=== PATIENT | female | born 1945 | race Two or more races ===

== ENCOUNTER 2018-12-17 04:04 | Inpatient (IN) | payer MEDICARE, BC ==
[2018-12-17 05:38] LABS: BASO # 0.02 K/mm3 (0.0-2.0); BASO % 0.2 % (0.0-3.0); EOS % 0.1 % (1.5-5.0); HEMOGLOBIN 12.7 g/dL (12.0-16.0); LYMPH # 0.3 (1.2-3.4); LYMPH % 3.2 % (22.0-35.0); MEAN CELL VOLUME 86.4 fl (80.0-105.0); MEAN CORPUSCULAR HEMOGLOBIN 28.2 pg (25.0-35.0); MEAN CORPUSCULAR HGB CONC 32.6 g/dl (31.0-37.0); MEAN PLATELET VOLUME 9.6 fl (7.0-11.0); MONO # 0.4 (0.1-0.6); MONO % 4.9 % (1.0-6.0); PLATELET COUNT 134 10^3/uL (120.0-450.0); RED CELL DISTRIBUTION WIDTH 13.8 % (11.5-14.5); URINE BILIRUBIN NEGATIVE (NEGATIVE); URINE BLOOD LARGE (NEGATIVE); URINE GLUCOSE (UA) >=1000 mg/dL (NEGATIVE); URINE LEUKOCYTE ESTERASE TRACE Leu/uL (NEGATIVE); URINE PROTEIN >=300 mg/dL (<30 mg/dL); URINE UROBILINOGEN 0.2 E.U./dL (<1 E.U./dL); WHITE BLOOD COUNT 8.2 10^3/uL (4.5-11.0)
[2018-12-17 05:42] LABS: VENOUS BLOOD GAS BASE EXCESS -2.2 mmol/L (0.0-2.0); VENOUS BLOOD GAS PO2 34 mm/Hg (30-55); VENOUS BLOOD PH 7.32 (7.32-7.43)
--- NOTE | 2018-12-17 05:42 | ED PDOC ---
Arrival/HPI - General Chief Complaint: Fever Time Seen by Provider: 12/17/18 04:08 Historian: Patient - History of Present Illness Narrative History of Present Illness (Text): 12/17/18 05:42 72 year old female, with past medical history of hypertension, CVA, gallbladder removal, and diabetes 2 presents to emergency department for evaluation of fever and left lower quadrant pain. Patient denies any chest pain, cough, nausea, vo miting, diarrhea, or any other somatic complaints. PMD: Symptom Onset: Gradual Symptom Course: Unchanged Activities at Onset: Light Context: Home Past Medical History - Provider Review Nursing Documentation Reviewed: Yes - Cardiac Hx Cardiac Disorders: Yes Hx Hypertension: Yes - Neurological Hx Neurological Disorder: Yes HX Cerebrovascular Accident: Yes (21 years ago) - Endocrine/Metabolic Hx Endocrine Disorders: Yes Hx Diabetes Mellitus Type 2: Yes - Psychiatric Hx Substance Use: No - Surgical History Hx Orthopedic Surgery: Yes (R leg with hemalatha, removed due to infection) Family/Social History - Physician Review Nursing Documentation Reviewed: Yes Family/Social History: Unknown Family HX Smoking Status: Former Smoker Hx Alcohol Use: No Hx Substance Use: No Allergies/Home Meds Allergies/Adverse Reactions: Allergies brompheniramine [From Dimetane-DX] Allergy (Verified 12/20/18 20:07) ANAPHYLAXIS diphenhydramine [From Benadryl] Allergy (Verified 12/20/18 20:07) ANAPHYLAXIS Penicillins Allergy (Verified 12/17/18 04:13) ANAPHYLAXIS Home Medications: Home Meds Medication Instructions Recorded Confirmed Aspirin/Dipyridamole 1 tab PO DAILY 12/17/18 12/17/18 [Aspirin-Dipyridam ER 25-200 mg] Escitalopram [Lexapro] 10 mg PO DAILY 12/17/18 12/17/18 GlipiZIDE [Glucotrol] 10 mg PO DAILY 12/17/18 12/17/18 MetFORMIN [glucoPHAGE] 1,000 mg PO BID 12/17/18 12/17/18 Metoprolol Tartrate [Lopressor] 100 mg PO BID 12/17/18 12/17/18 NIFEdipine ER [Procardia XL] 30 mg PO DAILY 12/17/18 12/17/18 SITagliptin [Januvia] 100 mg PO DAILY 12/17/18 12/17/18 Valsartan [Diovan] 320 mg PO DAILY 12/17/18 12/17/18 traMADol [Ultram] 50 mg PO TID PRN 12/17/18 12/17/18 Review of Systems - Physician Review All systems were reviewed & negative as marked: Yes - Review of Systems Constitutional: Fevers Respiratory: absent: SOB, Cough Cardiovascular: absent: Chest Pain Gastrointestinal: Abdominal Pain (LLQ pain). absent: Diarrhea, Nausea, Vomiting Musculoskeletal: absent: Back Pain, Neck Pain Skin: absent: Rash Neurological: absent: Headache, Dizziness Physical Exam - Physical Exam Narrative Physical Exam (Text): 12/17/18 05:47 Gen: VS reviewed, alert, well developed, well nourished, nontoxic, mild distress Eye: EOMI, PERRL Neck: no JVD, supple, no adenopathy CV: regular rate, regular rhythm, no rubs,no murmur, S1, S2 Pulm: no distress, clear to auscultation, no wheeze, no rhonchi, breath sounds equal, no rales Abd: LLQ tenderness, with guarding, no rebound, no rigidity Back: no CVA tenderness Ext: no edema Skin: good color, no rash, no cyanosis Psych: responds appropriately to questions, normal affect Neuro: oriented x3, CN2-12 intact grossly, motor intact, sensation intact Vital Signs Reviewed: Yes Vital Signs Temp Pulse Resp BP Pulse Ox 12/17/18 05:39 104 H 18 114/54 L 99 12/17/18 04:17 99.7 F H 113 H 18 105/40 L 92 L Temperature: Afebrile Blood Pressure: Normal Pulse: Regular Respiratory Rate: Normal Appearance: Positive for: Well-Appearing, Non-Toxic, Comfortable Pain Distress: None Mental Status: Positive for: Alert and Oriented X 3 Finger Stick Blood Glucose: 486 Medical Decision Making ED Course and Treatment: 12/17/18 05:48 Impression: 72 year old female presents to emergency department for evaluation of fever and LLQ pain. Plan: -- Reassess and disposition Prior Visits: Notes and results from previous visits were reviewed. Progress Notes: 12/17/18 08:15 patient was seen for fever and llq pain. patient found to have a lactic acidosis and bandemia, sepsis. Patient empirically tx with iv abx. Ct ordered to eval for diverticulitis vs obstructive uropathy vs other. case endorsed to dr. viveros, pending CT result and final disposition/admission. - RAD Interpretation Radiology Orders: 12/17/18 05:07 CHEST PORTABLE [RAD] Stat 12/17/18 05:08 ABDOMEN & PELVIS [ABD & PELVIS IV CONTRAST ONLY] [CT] Stat - EKG Interpretation EKG Interpretation (Text): 12/17/18 06:32 0430: sinus tach at 113 bpm, nml qrs, nml axis, no acute sttw abn Interpreted by ED Physician: Yes - Scribe Statement The provider has reviewed the documentation as recorded by the Scribe Musa Loredo All medical record entries made by the Scribe were at my direction and personally dictated by me. I have reviewed the chart and agree that the record accurately reflects my personal performance of the history, physical exam, medical decision making, and the department course for this patient. I have also personally directed, reviewed, and agree with the discharge instructions and disposition. Disposition/Present on Arrival - Present on Arrival Any Indicators Present on Arrival: No History of DVT/PE: No History of Uncontrolled Diabetes: Yes Urinary Catheter: No History of Decub. Ulcer: No History Surgical Site Infection Following: Orthopedic Procedures - Disposition Have Diagnosis and Disposition been Completed?: Yes Diagnosis: Sepsis, UTI (urinary tract infection) Disposition: HOSPITALIZED Disposition Time: 18:04 Patient Plan: Admission Patient Problems: Current Active Problems Problem Status Onset Sepsis Acute UTI (urinary tract infection) Acute Condition: FAIR
[2018-12-17 06:02] LABS: ALB/GLOB RATIO 1.3 (1.1-1.8); CALCIUM 10.8 mg/dL (8.4-10.5)
[2018-12-17 06:11] LABS: URINE APPEARANCE SL CLOUDY (CLEAR); URINE COLOR YELLOW (YELLOW)
[2018-12-17] MEDS ORDERED: Aztreonam 1 Gm in NS 100mL 100 ML IVPB STA (06:13)
[2018-12-17] MEDS ORDERED: Insulin Regular 1 UNITS/0.01 ML ML IVP STA (06:13)
[2018-12-17] MEDS ORDERED: Vancomycin 500 mg Inj IVPB STA (06:14)
[2018-12-17 06:34] LABS: URINE WBC TNTC /hpf (0-6)
[2018-12-17 06:35] LABS: URINE AMORPHOUS SEDIMENT MODERATE /hpf; URINE BACTERIA SMALL /hpf
[2018-12-17] MEDS ORDERED: Vancomycin 1.25 GM in Sodium Chloride 0.9% 500 ML IVPB ONE (06:45)
[2018-12-17 06:59] LABS: BAND 9 % (0-2); LYMPHOCYTE 5 % (22.0-35.0); NEUTROPHIL 83 % (50.0-70.0)
[2018-12-17 07:00] LABS: METAMYELOCYTE 3 %; MONOCYTE 0 % (1.0-6.0); PLATELET ESTIMATE NORMAL (NORMAL)
[2018-12-17 08:36] LABS: VENOUS BLOOD GAS BASE EXCESS -4.5 mmol/L (0.0-2.0); VENOUS BLOOD GAS PO2 79 mm/Hg (30-55); VENOUS BLOOD PH 7.36 (7.32-7.43)
--- NOTE | 2018-12-17 08:58 | CT ---
Date of service: 12/17/2018 PROCEDURE: CT Abdomen and Pelvis without intravenous contrast HISTORY: COMPARISON: None. TECHNIQUE: CT scan of the abdomen and pelvis was performed without administration of intravenous contrast. Oral contrast was not administered. Coronal and sagittal reformatted images were obtained. Radiation dose: Total exam DLP = 1091.02 mGy-cm. This CT exam was performed using one or more of the following dose reduction techniques: Automated exposure control, adjustment of the mA and/or kV according to patient size, and/or use of iterative reconstruction technique. FINDINGS: LOWER THORAX: The visualized right lung is clear. There is subsegmental atelectasis in the left lung base. LIVER: Normal in size. No gross lesion or ductal dilatation. GALLBLADDER AND BILE DUCTS: Well distended. No calcified gallstones. No common bile duct dilatation. PANCREAS: Mild diffuse atrophy of the pancreas. No gross lesion or ductal dilatation. SPLEEN: Borderline splenomegaly. ADRENALS: The right adrenal gland is normal in size. There is mild thickening of the left adrenal gland without discrete nodule. KIDNEYS AND URETERS: There is mild atrophy of the right kidney with cortical scarring in the upper pole. The left kidney is normal in size.. No hydronephrosis or nephrolithiasis. There is nonspecific perinephric fat stranding. VASCULATURE: Normal in caliber. No aortic aneurysm. There are aortic atherosclerotic calcifications present. BOWEL: Evaluation of the bowel is limited in the absence of oral contrast. The small bowel loops are normal in caliber. There is moderate amount of stool in the colon. There is left colonic diverticulosis without CT evidence for acute diverticulitis APPENDIX: Normal appendix. PERITONEUM: No free fluid. No free air. LYMPH NODES: No enlarged lymph nodes. BLADDER: Partially decompressed. REPRODUCTIVE: The uterus is is normal in size. BONES: No acute fracture. There is diffuse bone demineralization and multilevel degenerative changes in the spine. OTHER FINDINGS: None. IMPRESSION: No acute abdominal or pelvic abnormality. Left colonic diverticulosis without CT evidence for acute diverticulitis.
[2018-12-17] MEDS ORDERED: SODIUM CHLORIDE 0.9% IV STA (09:10)
--- NOTE | 2018-12-17 10:40 | ED PDOC ---
Physical Exam - Physical Exam Narrative Physical Exam (Text): Signed out to me at change of shift pending CT. IMPRESSION: No acute abdominal or pelvic abnormality. Left colonic diverticulosis without CT evidence for acute diverticulitis. Dr. Ballesteros accepts patient to hospitalist service. Vital Signs Temp Pulse Resp BP Pulse Ox 12/17/18 08:33 98.4 F 96 H 18 105/54 L 96 12/17/18 07:49 19 108/58 L 98 12/17/18 07:13 99 H 18 97/45 L 98 12/17/18 06:44 106 H 18 111/48 L 97 12/17/18 05:39 104 H 18 114/54 L 99 12/17/18 04:17 99.7 F H 113 H 18 105/40 L 92 L Finger Stick Blood Glucose: 486 Medical Decision Making - Lab Interpretations Lab Results: pO2 79 mm/Hg (30-55) H 12/17/18 07:50 VBG pH 7.36 (7.32-7.43) 12/17/18 07:50 VBG pCO2 36.0 (40-60) L 12/17/18 07:50 VBG HCO3 20.3 mmol/l (21-28) L 12/17/18 07:50 VBG Total CO2 21.4 mmol.L (22-28) L 12/17/18 07:50 VBG O2 Sat (Calc) 97.1 % (40-65) H 12/17/18 07:50 VBG Base Excess -4.5 mmol/L (0.0-2.0) L 12/17/18 07:50 VBG Potassium 3.6 mmol/L (3.6-5.2) 12/17/18 07:50 Sodium 136.0 mmol/L (132-148) 12/17/18 07:50 Chloride 98.0 mmol/L (98-107) 12/17/18 07:50 Glucose 393 mg/dl (65-105) H 12/17/18 07:50 Lactate 4.9 mmol/L (0.7-2.1) H* 12/17/18 07:50 FiO2 21.0 % 12/17/18 07:50 Crit Value Called To Leora malone 12/17/18 07:50 Crit Value Called By Sonali 12/17/18 07:50 Blood Gas Notified Time 836 12/17/18 07:50 Total Bilirubin 0.6 mg/dL (0.2-1.3) 12/17/18 04:40 AST 26 U/L (14-36) 12/17/18 04:40 ALT 8 U/L (7-56) 12/17/18 04:40 Alkaline Phosphatase 93 U/L (38-126) 12/17/18 04:40 Total Protein 7.1 g/dL (5.8-8.3) 12/17/18 04:40 Albumin 4.0 g/dL (3.0-4.8) 12/17/18 04:40 Globulin 3.2 gm/dL 12/17/18 04:40 Albumin/Globulin Ratio 1.3 (1.1-1.8) 12/17/18 04:40 Urine Color Yellow (YELLOW) 12/17/18 04:40 Urine Appearance Sl cloudy (CLEAR) 12/17/18 04:40 Urine pH 6.0 (4.7-8.0) 12/17/18 04:40 Ur Specific [place] 1.025 (1.005-1.035) 12/17/18 04:40 Urine Protein >=300 mg/dL (<30 mg/dL) H 12/17/18 04:40 Urine Glucose (UA) >=1000 mg/dL (NEGATIVE) 12/17/18 04:40 Urine Ketones 15 mg/dL (NEGATIVE) H 12/17/18 04:40 Urine Blood Large (NEGATIVE) H 12/17/18 04:40 Urine Nitrate Negative (NEGATIVE) 12/17/18 04:40 Urine Bilirubin Negative (NEGATIVE) 12/17/18 04:40 Urine Urobilinogen 0.2 E.U./dL (<1 E.U./dL) 12/17/18 04:40 Ur Leukocyte Esterase Trace Jonatan/uL (NEGATIVE) H 12/17/18 04:40 Urine RBC 10 - 15 /hpf (0-2) H 12/17/18 04:40 Urine WBC Tntc /hpf (0-6) H 12/17/18 04:40 Ur Epithelial Cells 3 - 4 /hpf (0-5) 12/17/18 04:40 Amorphous Sediment Moderate /hpf (NONE) 12/17/18 04:40 Urine Bacteria Small /hpf (NONE) 12/17/18 04:40 - RAD Interpretation Radiology Orders: 12/17/18 05:07 CHEST PORTABLE [RAD] Stat 12/17/18 07:37 ABDOMEN & PELVIS [ABD & PELVIS W/O PO OR IV CONT] [CT] Stat - Medication Orders Current Medication Orders: Discontinued Medications Aztreonam (Azactam 1 Gm) 100 mls @ 100 mls/hr IVPB STAT STA; Protocol Stop: 12/17/18 07:12 Last Admin: 12/17/18 07:17 Dose: 100 mls/hr eMAR Start Stop Document 12/17/18 07:17 CNR (Rec: 12/17/18 07:17 CNR [id number]) Intravenous Solution Start Date 12/17/18 Start Time 07:17 Vancomycin HCl 1.25 gm/ Sodium (Chloride) 500 mls @ 167 mls/hr IVPB ONCE ONE Stop: 12/17/18 09:44 Last Admin: 12/17/18 08:26 Dose: 167 mls/hr eMAR Start Stop Document 12/17/18 08:26 GMI (Rec: 12/17/18 08:[address] [email or web address]) Intravenous Solution Start Date 12/17/18 Start Time 08:26 Sodium Chloride (Sodium Chloride 0.9%) 2,314 mls @ 4,628 mls/hr IV .Q30M STA Stop: 12/17/18 09:39 Last Admin: 12/17/18 09:30 Dose: 4,628 mls/hr eMAR Start Stop Document 12/17/18 09:30 GMI (Rec: 12/17/18 09:[address] [email or web address]) Intravenous Solution Start Date 12/17/18 Start Time 09:30 End Date 12/17/18 Insulin Human Regular (Humulin R) 10 units IVP STAT STA Stop: 12/17/18 06:14 Last Admin: 12/17/18 06:25 Dose: 10 u IVP Administration Document 12/17/18 06:25 CNR (Rec: 12/17/18 06:26 CNR [id number]) Charges for Administration # of IVP Administrations 1 Disposition/Present on Arrival - Present on Arrival Any Indicators Present on Arrival: Yes History of DVT/PE: No History of Uncontrolled Diabetes: Yes Urinary Catheter: No History of Decub. Ulcer: No History Surgical Site Infection Following: Orthopedic Procedures - Disposition Have Diagnosis and Disposition been Completed?: Yes Diagnosis: Sepsis, UTI (urinary tract infection) Disposition: HOSPITALIZED Disposition Time: 08:55 Patient Plan: Admission, Telemetry Condition: FAIR Forms: [employer] (Armenian)
[2018-12-17] MEDS: Sodium Chloride 0.9% 1,000 ML IV SCH ×2 (12:18→22:10)
--- NOTE | 2018-12-17 12:23 | CP.PCM.HP ---
<Yash Balbuena - Last Filed: 12/17/18 12:28> History of Present Illness - History of Present Illness History of Present Illness: Hospitalist H&P for Dr. Ballesteros CC: Fever Patient is a 72 yo F with PMH of DM2, HTN, CVA (21 yrs ago), depression, and chronic back pain [place] [facility] [place], chills, vomiting, and possible UTI. Patient states that she began having fever of 101.4 F, chills, and back pain. Patient denies any dysuria or hematuria, but states that this felt similar to a UTI she had in the past. Patient then called her PMD, Dr. Eden, who prescribed Ciprofloxacin. Patient has only taken one dose thus far. Patient then vomited later in the evening. The daughter was afraid that her mom may have aspirated and brought her to the ED. Patient has been afebrile in the ED, but had mild hypotension and an elevated lactate. Code sepsis was called. Patient was placed on IVF and antibiotics at that time. Currently, patient complains of back pain and cough, both of which are chronic, but denies CP, SOB, n/v/d, fever, chills, dysuria, hematuria, melena, hematochezia, dizziness, headache, or fatigue. PMD: [facility] PMH: DM2, HTN, CVA (21 yrs ago), depression, and chronic back pain Surg: D&C, right leg fracture repair, cholecystectomy, x2 All: Penicillin FHx: Non-contributory SH: Former smoker 1 ppd for 20 yrs (quit 21 yrs ago); denies EtOH and illicit drug use Present on Admission - Present on Admission Any Indicators Present on Admission: No Review of Systems - Review of Systems All systems: reviewed and no additional remarkable complaints except (12 point ROS reviewed and is negative other than what is stated in HPI.) Past Patient History - Past Social History Smoking Status: Former Smoker - CARDIAC Hx Cardiac Disorders: Yes Hx Hypertension: Yes - NEUROLOGICAL Hx Neurological Disorder: Yes HX Cerebrovascular Accident: Yes (21 years ago) - ENDOCRINE/METABOLIC Hx Endocrine Disorders: Yes Hx Diabetes Mellitus Type 2: Yes - PSYCHIATRIC Hx Substance Use: No - SURGICAL HISTORY Hx Orthopedic Surgery: Yes (R leg with hemalatha, removed due to infection) Meds Allergies/Adverse Reactions: Allergies Allergy/AdvReac Type Severity Reaction Status Date / Time Penicillins Allergy ANAPHYLAXIS Verified 12/17/18 04:13 Physical Exam - Constitutional Appears: No Acute Distress - Head Exam Head Exam: NORMAL INSPECTION - Eye Exam Eye Exam: EOMI, Normal appearance, PERRL Pupil Exam: NORMAL ACCOMODATION - ENT Exam ENT Exam: Mucous Membranes Dry - Neck Exam Neck exam: Positive for: Normal Inspection - Respiratory Exam Respiratory Exam: Clear to Auscultation Bilateral. absent: Rales, Rhonchi, Wheezes - Cardiovascular Exam Cardiovascular Exam: Tachycardia, +S1, +S2. absent: Diastolic murmur, Gallop, Irregular Rhythm, Rubs, Systolic Murmur - GI/Abdominal Exam GI & Abdominal Exam: Soft, Tenderness (suprapubic). absent: Distended, Guarding, Rebound - Extremities Exam Extremities exam: Positive for: normal inspection - Back Exam Back exam: CVA tenderness (L) - Neurological Exam Neurological exam: Alert, CN II-XII Intact, Oriented x3 - Psychiatric Exam Psychiatric exam: Normal Affect, Normal Mood - Skin Skin Exam: Dry, Intact, Normal Color, Warm Results - Vital Signs Recent Vital Signs: Last Vital Signs Temp 98 F 12/17/18 12:10 Pulse 100 H 12/17/18 12:10 Resp 19 12/17/18 12:10 BP 120/72 12/17/18 12:10 Pulse Ox 95 12/17/18 10:47 - Labs Result Diagrams: 12/17/18 04:40 12/17/18 04:40 Labs: Laboratory Results - last 24 hr 12/17/18 12/17/18 12/17/18 04:40 04:40 04:40 WBC 8.2 RBC 4.50 Hgb 12.7 Hct 38.9 MCV 86.4 MCH 28.2 MCHC 32.6 RDW 13.8 Plt Count 134 MPV 9.6 Neut % (Auto) 91.6 H Lymph % (Auto) 3.2 L [place] % (Auto) 4.9 Eos % (Auto) 0.1 L Baso % (Auto) 0.2 Lymph # (Auto) 0.3 L [place] # (Auto) 0.4 Eos # (Auto) 0.0 Baso # (Auto) 0.02 Absolute Neuts (auto) 7.48 H Neutrophils % (Manual) 83 H Band Neutrophils % 9 H Lymphocytes % (Manual) 5 L Monocytes % (Manual) 0 L Metamyelocytes % 3 Platelet Evaluation Normal pO2 34 VBG pH 7.32 VBG pCO2 47.0 VBG HCO3 24.2 VBG Total CO2 25.6 VBG O2 Sat (Calc) 66.9 H VBG Base Excess -2.2 L VBG Potassium 4.7 Sodium 132.0 131 L Chloride 93.0 L 94 L Glucose 557 H* Lactate 3.1 H FiO2 21.0 Crit Value Called To Rn cydney Crit Value Called By Blood Gas Notified Time 540 Potassium 4.5 Carbon Dioxide 23 Anion Gap 18 BUN 31 H Creatinine 1.6 H Est GFR ( Amer) 38 Est GFR (Non-Af Amer) 32 POC Glucose (mg/dL) Random Glucose 499 H* Calcium 10.8 H Total Bilirubin 0.6 AST 26 ALT 8 Alkaline Phosphatase 93 Total Protein 7.1 Albumin 4.0 Globulin 3.2 Albumin/Globulin Ratio 1.3 Venous Blood Potassium 4.7 Urine Color Urine Appearance Urine pH Ur Specific [place] Urine Protein Urine Glucose (UA) Urine Ketones Urine Blood Urine Nitrate Urine Bilirubin Urine Urobilinogen Ur Leukocyte Esterase Urine RBC Urine WBC Ur Epithelial Cells Amorphous Sediment Urine Bacteria 12/17/18 12/17/18 12/17/18 04:40 04:40 07:50 WBC RBC Hgb Hct MCV MCH MCHC RDW Plt Count MPV Neut % (Auto) Lymph % (Auto) [place] % (Auto) Eos % (Auto) Baso % (Auto) Lymph # (Auto) [place] # (Auto) Eos # (Auto) Baso # (Auto) Absolute Neuts (auto) Neutrophils % (Manual) Band Neutrophils % Lymphocytes % (Manual) Monocytes % (Manual) Metamyelocytes % Platelet Evaluation pO2 79 H VBG pH 7.36 VBG pCO2 36.0 L VBG HCO3 20.3 L VBG Total CO2 21.4 L VBG O2 Sat (Calc) 97.1 H VBG Base Excess -4.5 L VBG Potassium 3.6 Sodium 136.0 Chloride 98.0 Glucose 393 H Lactate 4.9 H* FiO2 21.0 Crit Value Called To Leora malone Crit Value Called By Sonali Blood Gas Notified Time 836 Potassium Carbon Dioxide Anion Gap BUN Creatinine Est GFR ( Amer) Est GFR (Non-Af Amer) POC Glucose (mg/dL) 486 H* Random Glucose Calcium Total Bilirubin AST ALT Alkaline Phosphatase Total Protein Albumin Globulin Albumin/Globulin Ratio Venous Blood Potassium 3.6 Urine Color Yellow Urine Appearance Sl cloudy Urine pH 6.0 Ur Specific [place] 1.025 Urine Protein >=300 H Urine Glucose (UA) >=1000 Urine Ketones 15 H Urine Blood Large H Urine Nitrate Negative Urine Bilirubin Negative Urine Urobilinogen 0.2 Ur Leukocyte Esterase Trace H Urine RBC 10 - 15 H Urine WBC Tntc H Ur Epithelial Cells 3 - 4 Amorphous Sediment Moderate Urine Bacteria Small 12/17/18 08:41 WBC RBC Hgb Hct MCV MCH MCHC RDW Plt Count MPV Neut % (Auto) Lymph % (Auto) [place] % (Auto) Eos % (Auto) Baso % (Auto) Lymph # (Auto) [place] # (Auto) Eos # (Auto) Baso # (Auto) Absolute Neuts (auto) Neutrophils % (Manual) Band Neutrophils % Lymphocytes % (Manual) Monocytes % (Manual) Metamyelocytes % Platelet Evaluation pO2 VBG pH VBG pCO2 VBG HCO3 VBG Total CO2 VBG O2 Sat (Calc) VBG Base Excess VBG Potassium Sodium Chloride Glucose Lactate FiO2 Crit Value Called To Crit Value Called By Blood Gas Notified Time Potassium Carbon Dioxide Anion Gap BUN Creatinine Est GFR ( Amer) Est GFR (Non-Af Amer) POC Glucose (mg/dL) 356 H Random Glucose Calcium Total Bilirubin AST ALT Alkaline Phosphatase Total Protein Albumin Globulin Albumin/Globulin Ratio Venous Blood Potassium Urine Color Urine Appearance Urine pH Ur Specific [place] Urine Protein Urine Glucose (UA) Urine Ketones Urine Blood Urine Nitrate Urine Bilirubin Urine Urobilinogen Ur Leukocyte Esterase Urine RBC Urine WBC Ur Epithelial Cells Amorphous Sediment Urine Bacteria Assessment & Plan - Assessment and Plan (Free Text) Assessment: 72 yo F with PMH of DM2, HTN, CVA (21 yrs ago), depression, and chronic back pain presents to [facility] [place] fever, chills, and vomiting. Code sepsis was called due to tachycardia, hypotension, and elevated lactate. Patient was placed on antibiotics and BP responded appropriately to IVF resuscitation. Perinephric stranding was found on abdominal CT. Patient admitted for sepsis possible pyelonephritis, KENN, and uncontrolled diabetes. Plan: 1. Sepsis 2/2 possible pyelonephritis - CT showed L perinephric stranding - CXR negative - UA shows pyuria - No leukocytosis, increased granulocytosis - Lactate 4.9, will recheck for treatment response - NS 30 cc/kg given in ED, will continue at 100 cc/hr - Vanc/Aztreonam given in ED, will continue - ID consulted 2. KENN - Likely prerenal - Possibly superimposed on CKD; h/o uncontrolled diabetes, proteinuria on UA - Will continue to monitor response with IVF - Urine studies - NS at 100 cc/hr 3. Uncontrolled DM - Glucose 499 on admission, no gap or acidosis - UA shows glycosuria, ketouria, and proteinuria - HgbA1c ordered - Hold home medications: metformin, januniva, and glipizide - Patient does not want to be on home insulin despite uncontrolled DM - Levemir 10 units HS - ISS - Accuchecks ACHS - Podiatry consulted for diabetic foot care 4. HTN - Hold home medications as patient was hypotensive 5. H/o CVA - Cont Aggrenox 6. H/o Depression - Cont Lexapro 7. H/o Chronic Back Pain - Cont Tramadol prn Heparin for DVT PPx GI PPx not indicated at this time Patient seen and discussed in detail with Dr. Ballesteros. Wilian Balbuena, DO PGY2 <Diana Ballesteros - Last Filed: 12/18/18 11:45> Results - Vital Signs Recent Vital Signs: Last Vital Signs Temp 98.8 F 12/18/18 08:08 Pulse 96 H 12/18/18 10:26 Resp 22 12/18/18 08:08 BP 151/81 H 12/18/18 10:26 Pulse Ox 95 12/18/18 08:08 - Labs Result Diagrams: 12/18/18 05:00 12/18/18 05:00 Labs: Laboratory Results - last 24 hr 12/17/18 12/17/18 12/17/18 12:00 14:00 16:20 WBC RBC Hgb Hct MCV MCH MCHC RDW Plt Count MPV Neut % (Auto) Lymph % (Auto) [place] % (Auto) Eos % (Auto) Baso % (Auto) Lymph # (Auto) [place] # (Auto) Eos # (Auto) Baso # (Auto) Absolute Neuts (auto) Sodium Potassium Chloride Carbon Dioxide Anion Gap BUN Creatinine Est GFR ( Amer) Est GFR (Non-Af Amer) POC Glucose (mg/dL) 431 H* Random Glucose Hemoglobin A1c 11.3 H D Lactic Acid 1.3 Calcium Phosphorus Magnesium Total Bilirubin AST ALT Alkaline Phosphatase Total Protein Albumin Globulin Albumin/Globulin Ratio 12/17/18 12/18/18 12/18/18 21:18 05:00 05:00 WBC 9.4 RBC 3.78 Hgb 10.4 L D Hct 33.1 L MCV 87.6 MCH 27.5 MCHC 31.4 RDW 14.3 Plt Count 119 L MPV 9.3 Neut % (Auto) 77.9 H Lymph % (Auto) 7.5 L [place] % (Auto) 13.4 H Eos % (Auto) 1.0 L Baso % (Auto) 0.2 Lymph # (Auto) 0.7 L [place] # (Auto) 1.3 H Eos # (Auto) 0.1 Baso # (Auto) 0.02 Absolute Neuts (auto) 7.35 H Sodium 137 Potassium 4.2 Chloride 106 Carbon Dioxide 24 Anion Gap 11 BUN 26 H Creatinine 1.3 H Est GFR ( Amer) 49 Est GFR (Non-Af Amer) 40 POC Glucose (mg/dL) 366 H Random Glucose 326 H* D Hemoglobin A1c Lactic Acid Calcium 8.8 Phosphorus 2.9 Magnesium 1.6 L Total Bilirubin 0.2 AST 33 ALT 16 Alkaline Phosphatase 71 Total Protein 6.1 Albumin 3.1 Globulin 3.0 Albumin/Globulin Ratio 1.0 L 12/18/18 07:18 WBC RBC Hgb Hct MCV MCH MCHC RDW Plt Count MPV Neut % (Auto) Lymph % (Auto) [place] % (Auto) Eos % (Auto) Baso % (Auto) Lymph # (Auto) [place] # (Auto) Eos # (Auto) Baso # (Auto) Absolute Neuts (auto) Sodium Potassium Chloride Carbon Dioxide Anion Gap BUN Creatinine Est GFR ( Amer) Est GFR (Non-Af Amer) POC Glucose (mg/dL) 293 H Random Glucose Hemoglobin A1c Lactic Acid Calcium Phosphorus Magnesium Total Bilirubin AST ALT Alkaline Phosphatase Total Protein Albumin Globulin Albumin/Globulin Ratio Attending/Attestation - Attestation I have personally seen and examined this patient.: Yes I have fully participated in the care of the patient.: Yes I have reviewed all pertinent clinical information: Yes Notes (Text): 12/18/18 11:33 Attending note; Patient seen and examined with resident in ER. Patient's daughter by the bedside. Patient is alert and awake. Complaining of fevers and chills. Complaining of left-sided back pain. Denies any nausea, vomiting. Patient is a 72 year olf female with PMH of DM2, HTN, CVA (21 yrs ago), depression, and chronic back pain presents to [facility] for fever, chills, vomiting, and Urinary symptoms. patient states that she began having fever of 101.4 F, chills, and back pain. 1. Sepsis/UTI/acute pyelonephritis; started on IV Azactam. Patient has positive UA. Urine culture sent. Code sepsis called for significant lactic acidosis. Continue IV fluids. 2. Acute left-sided pyelonephritis; continue IV fluids and antibiotics. 3. Lactic acidosis ; secondary to sepsis .resolving with IV fluid and antibiotics. 4. Hypotension; resolving with IV fluids. Hold metoprolol, nifedipine and Diovan. 5. Uncontrolled diabetes; patient has uncontrolled blood sugar. Hold metformin. Started on Levemir . Monitor fingerstick closely . 6. Acute renal failure ; secondary to dehydration and sepsis . Monitor creatinine closely. 7. Chronic back pain; continue tramadol. 8. History of CVA; continue Aggrenox. 9. Depression; continue Lexapro. Monitor closely for fevers. Upon discharge the patient will follow up with PMD .
--- NOTE | 2018-12-17 12:50 | PCM.SEPTIC ---
Sepsis Progress Note - Reassessment Type Date of Evaluation: 12/17/18 Time of Evaluation: 11:30 Reassessment Type: Non-invasive reassessment - Non Invasive Reassessment Were the most recent vital sign reviewed: Yes Vital Sign (Latest): Temp Pulse Resp BP Pulse Ox 98 F 100 H 19 121/72 95 12/17/18 12:10 12/17/18 12:10 12/17/18 12:10 12/17/18 12:29 12/17/18 10:47 Cardiovascular: Yes: Chest Non Tender, Tachycardia. No: Edema, Murmur Respiratory: Yes: Normal Breath Sounds. No: Rales, Rhonchi, Wheezing Capillary Refill: Normal (Less than 2 sec) Pulses: Normal Radial, Normal Dorsalis Pedis, Normal Posterior Tibialis Skin: Normal Color - Invasive Reassessment (complete 2 of 4) Was a Central Venous Pressure Measurement obtained within 6 Hours after the presentation of septic shock: No Was a central venous oxygen measurement obtained within 6 hours after the presentation of septic shock: No Was a bedside cardiovascular ultrasound performed within 6 hours after the presentation of septic shock: No Was a passive leg raise performed or was a fluid challenge performed within 6 hrs of the initial fluid bolus: No Fluid Challenge performed: No
--- NOTE | 2018-12-17 13:16 | RAD ---
Date of service: 12/17/2018 HISTORY: pneumonia COMPARISON: No prior. FINDINGS: LUNGS: The lungs are well inflated and clear. PLEURA: No pleural effusions or pneumothorax. CARDIOVASCULAR: The heart is normal in size. No aortic atherosclerotic calcifications present. OSSEOUS STRUCTURES: Within normal limits for the patient's age. VISUALIZED UPPER ABDOMEN: Normal. OTHER FINDINGS: None. IMPRESSION: No active pulmonary disease.
[2018-12-17] MEDS ORDERED: Aztreonam 1 Gm in NS 100mL 100 ML IVPB SCH (14:00)
[2018-12-17 14:29] VITALS: BMI 32.1
[2018-12-17] MEDS ORDERED: Insulin Reg-MEDIUM-Coverage SC SCH (16:30)
[2018-12-17] MEDS ORDERED: Insulin Regular 1 UNITS/0.01 ML ML SC STA (17:09)
[2018-12-17] MEDS: Nystatin 100,000 Units/gm Topical Pow(15 gm) TOP SCH (19:04)
[2018-12-17] MEDS: Aztreonam 1 Gm in NS 100mL 100 ML IVPB SCH (21:52)
[2018-12-17] MEDS: Insulin Reg-HIGH-Coverage SC SCH (21:54)
[2018-12-17] MEDS ORDERED: Insulin Detemir 100 units/ml Vial (Levemir) SC SCH (22:00)
--- NOTE | 2018-12-17 23:53 | CARD ---
APPROVED REPORT Date of service: 12/17/2018 EKG Measurement Heart [id number] <Conclusion> Sinus tachycardia Otherwise normal ECG
[2018-12-18] MEDS: metroNIDAZOLE IV 500 mg/100 ml 500 MG/100 ML BAG IVPB SCH ×3 (05:19→21:47)
[2018-12-18 07:05] LABS: BASO # 0.02 K/mm3 (0.0-2.0); BASO % 0.2 % (0.0-3.0); EOS # 0.1 (0.0-0.7); HEMOGLOBIN 10.4 g/dL (12.0-16.0); LYMPH # 0.7 (1.2-3.4); LYMPH % 7.5 % (22.0-35.0); MEAN CELL VOLUME 87.6 fl (80.0-105.0); MEAN CORPUSCULAR HEMOGLOBIN 27.5 pg (25.0-35.0); MEAN CORPUSCULAR HGB CONC 31.4 g/dl (31.0-37.0); MEAN PLATELET VOLUME 9.3 fl (7.0-11.0); MONO # 1.3 (0.1-0.6); MONO % 13.4 % (1.0-6.0); RBC 3.78 10^6/uL (3.5-6.1); RED CELL DISTRIBUTION WIDTH 14.3 % (11.5-14.5); WHITE BLOOD COUNT 9.4 10^3/uL (4.5-11.0)
[2018-12-18 07:28] LABS: ALBUMIN 3.1 g/dL (3.0-4.8); CALCIUM 8.8 mg/dL (8.4-10.5)
[2018-12-18] MEDS ORDERED: Insulin Detemir 100 units/ml Vial (Levemir) SC ONE (08:16)
[2018-12-18] MEDS: Insulin Reg-HIGH-Coverage SC SCH ×4 (08:53→21:45)
--- NOTE | 2018-12-18 09:44 | CP.PCM.PN ---
<Yash Balbuena - Last Filed: 12/18/18 09:40> Subjective - Date & Time of Evaluation Date of Evaluation: 12/18/18 Time of Evaluation: 09:40 - Subjective Subjective: Hospitalist Progress Note for Dr. Ballesteros Patient seen and examined at bedside. Complains of chronic back pain. Patient denies CP, SOB, n/v/d, abdominal pain, dysuria, hematuria, fever, chills, [place], or dizziness. Objective - Vital Signs/Intake and Output Vital Signs (last 24 hours): Temp Pulse Resp BP Pulse Ox 98.8 F 96 H 22 151/81 H 95 12/18/18 08:08 12/18/18 08:08 12/18/18 08:08 12/18/18 08:08 12/18/18 08:08 Intake and Output: 12/18/18 12/18/18 06:59 18:59 Intake Total 480 Output Total 250 Balance 230 - Medications Medications: Current Medications Albuterol/Ipratropium (Duoneb 3 Mg/0.5 Mg (3 Ml) Ud) 3 ml IH Q2H PRN PRN Reason: Shortness of Breath Dipyridamole/Aspirin (Aggrenox 25-200 Mg) 1 ea PO DAILY [facility] Escitalopram Oxalate (Lexapro) 10 mg PO DAILY [facility] Heparin Sodium (Porcine) (Heparin) 5,000 units SC Q8 [facility]; Protocol Last Admin: 12/18/18 05:18 Dose: 5,000 units Sodium Chloride (Sodium Chloride 0.9%) 1,000 mls @ 100 mls/hr IV .Q10H [facility] Last Admin: 12/17/18 22:10 Dose: 100 mls/hr Vancomycin HCl (Vancomycin 1gm) 1 gm in 250 mls @ 167 mls/hr IVPB DAILY [facility]; Protocol Aztreonam (Azactam 1 Gm) 100 mls @ 100 mls/hr IVPB Q12H [facility]; Protocol Stop: 12/26/18 22:01 Last Admin: 12/17/18 21:52 Dose: 100 mls/hr Metronidazole (Flagyl) 500 mg in 100 mls @ 100 mls/hr IVPB Q8 [facility]; Protocol Stop: 12/27/18 06:01 Last Admin: 12/18/18 05:19 Dose: 100 mls/hr Insulin Detemir (Levemir) 15 unit SC HS [facility] Insulin Human Regular (Humulin R High) 0 units SC ACHS [facility]; Protocol Last Admin: 12/18/18 08:53 Dose: 7 units Nystatin (Nystop Topical Powder) 0 gm TOP BID [facility] Last Admin: 12/17/18 19:04 Dose: 1 applic Tramadol HCl (Ultram) 50 mg PO TID PRN PRN Reason: Pain, moderate (4-7) Last Admin: 12/17/18 22:02 Dose: 50 mg - Labs Labs: 12/18/18 05:00 12/18/18 05:00 - Constitutional Appears: No Acute Distress - Head Exam Head Exam: NORMAL INSPECTION - Eye Exam Eye Exam: EOMI, Normal appearance, PERRL - ENT Exam ENT Exam: Mucous Membranes Moist - Neck Exam Neck Exam: Normal Inspection - Respiratory Exam Respiratory Exam: Clear to Ausculation Bilateral. absent: Rales, Rhonchi, Wheezes - Cardiovascular Exam Cardiovascular Exam: RRR, +S1, +S2. absent: Gallop, Rubs, Murmur - GI/Abdominal Exam GI & Abdominal Exam: Soft. absent: Distended, Guarding, Tenderness, Rebound - Extremities Exam Extremities Exam: Normal Inspection - Back Exam Back Exam: CVA tenderness (L) - Neurological Exam Neurological Exam: Alert, Awake, CN II-XII Intact - Skin Skin Exam: Dry, Intact, Normal Color, Warm Assessment and Plan - Assessment and Plan (Free Text) Assessment: 72 yo F with PMH of DM2, HTN, CVA (21 yrs ago), depression, and chronic back pain presents to [facility] [place] for fever, chills, and vomiting. Code sepsis was called due to tachycardia, hypotension, and elevated lactate. Patient was placed on antibiotics and BP responded appropriately to IVF resuscitation. Perinephric stranding was found on abdominal CT. Patient admitted for sepsis possible pyelonephritis, KENN, and uncontrolled diabetes. Plan: 1. Sepsis 2/2 Possible pyelonephritis - CT showed L perinephric stranding, diverticulosis - CXR negative - UA shows pyuria - Blood and urine cultures pending - No leukocytosis, granulocytosis improving - Lactate 4.9 on admission, now WNL - Continue at NS 100 cc/hr - Cont Vanc/Aztreonam, Flagyl started by ID - ID consulted 2. KENN - Likely prerenal - Renal function improving on IVF - Possibly superimposed on CKD; h/o uncontrolled diabetes, proteinuria on UA - Urine studies - NS at 100 cc/hr 3. Uncontrolled DM - Glucose 499 on admission, no gap or acidosis - UA shows glycosuria, ketouria, and proteinuria - HgbA1c 11.3% - Hold home medications: metformin, januniva, and glipizide - Diabetic education consulted - Will require home insulin, but she did not want to be on home insulin on admission - Levemir 15 units HS - ISS high - Accuchecks ACHS - Podiatry consulted for diabetic foot care 4. HTN - Will restart Lopressor and Nifedipine XL - Hold Diovan due to KENN 5. H/o CVA - Cont Aggrenox 6. H/o Depression - Cont Lexapro 7. H/o Chronic Back Pain - Cont Tramadol prn Heparin for DVT PPx GI PPx not indicated at this time Patient seen and discussed in detail with Dr. Ballesteros. Wilian Balbuena, DO PGY2 <Diana Ballesteros - Last Filed: 12/18/18 11:48> Objective - Vital Signs/Intake and Output Vital Signs (last 24 hours): Temp Pulse Resp BP Pulse Ox 98.8 F 96 H 22 151/81 H 95 12/18/18 08:08 12/18/18 10:26 12/18/18 08:08 12/18/18 10:26 12/18/18 08:08 Intake and Output: 12/18/18 12/18/18 06:59 18:59 Intake Total 480 Output Total 250 Balance 230 - Medications Medications: Current Medications Albuterol/Ipratropium (Duoneb 3 Mg/0.5 Mg (3 Ml) Ud) 3 ml IH Q2H PRN PRN Reason: Shortness of Breath Dipyridamole/Aspirin (Aggrenox 25-200 Mg) 1 ea PO DAILY [facility] Last Admin: 12/18/18 10:25 Dose: 1 ea Escitalopram Oxalate (Lexapro) 10 mg PO DAILY [facility] Last Admin: 12/18/18 10:26 Dose: 10 mg Heparin Sodium (Porcine) (Heparin) 5,000 units SC Q8 [facility]; Protocol Last Admin: 12/18/18 05:18 Dose: 5,000 units Sodium Chloride (Sodium Chloride 0.9%) 1,000 mls @ 100 mls/hr IV .Q10H [facility] Last Admin: 12/18/18 10:26 Dose: 100 mls/hr Vancomycin HCl (Vancomycin 1gm) 1 gm in 250 mls @ 167 mls/hr IVPB DAILY [facility]; Protocol Last Admin: 12/18/18 10:27 Dose: 167 mls/hr Aztreonam (Azactam 1 Gm) 100 mls @ 100 mls/hr IVPB Q12H [facility]; Protocol Stop: 12/26/18 22:01 Last Admin: 12/18/18 10:25 Dose: 100 mls/hr Metronidazole (Flagyl) 500 mg in 100 mls @ 100 mls/hr IVPB Q8 [facility]; Protocol Stop: 12/27/18 06:01 Last Admin: 12/18/18 05:19 Dose: 100 mls/hr Insulin Detemir (Levemir) 15 unit SC HS [facility] Insulin Human Regular (Humulin R High) 0 units SC ACHS [facility]; Protocol Last Admin: 12/18/18 08:53 Dose: 7 units Metoprolol Tartrate (Lopressor) 100 mg PO BID [facility] Nifedipine (Procardia Xl) 30 mg PO DAILY [facility] Last Admin: 12/18/18 10:26 Dose: 30 mg Nystatin (Nystop Topical Powder) 0 gm TOP BID [facility] Last Admin: 12/18/18 10:26 Dose: 1 applic Tramadol HCl (Ultram) 50 mg PO TID PRN PRN Reason: Pain, moderate (4-7) Last Admin: 12/18/18 10:46 Dose: 50 mg - Labs Labs: 12/18/18 05:00 12/18/18 05:00 Attending/Attestation - Attestation I have personally seen and examined this patient.: Yes I have fully participated in the care of the patient.: Yes I have reviewed all pertinent clinical information, including history, physical exam and plan: Yes Notes (Text): 12/18/18 11:45 Attending note; Patient seen and examined with resident. Patient's daughter by the bedside. Patient is alert and awake. Denies any fevers today. Complaining of left-sided back pain. improving. Denies any nausea, vomiting. Patient is a 72 year olf female with PMH of DM2, HTN, CVA (21 yrs ago), depression, and chronic back pain presents to [facility] [place] for fever, chills, vomiting, and Urinary symptoms. patient states that she began having fever of 101.4 F, chills, and back pain. 1. Sepsis/UTI/acute left pyelonephritis; started on IV Azactam. CAT scan showed left perinephric stranding. Patient has positive UA. Urine culture is pending. Blood cultures pending. Fever is resolving. ID Evaluation appreciated. Pending culture and sensitivity results. 2. Acute left-sided pyelonephritis; continue IV fluids and antibiotics. 3. Lactic acidosis ; resolved with IV fluid and antibiotics. 4. Hypotension; resolved. Started on metoprolol, nifedipine with parameters. 5. Uncontrolled diabetes; patient has uncontrolled blood sugar. Hold metformin. Started on Levemir . Dosage increased. monitor fingerstick closely . 6. Acute renal failure ; creatinine is improving. secondary to dehydration and sepsis . Monitor creatinine closely. 7. Chronic back pain; continue tramadol. 8. History of CVA; continue Aggrenox. 9. Depression; continue Lexapro. Upon discharge the patient will follow up with PMD .
--- NOTE | 2018-12-18 10:16 | CON ---
DATE: 12/18/2018 LOCATION: The patient is seen in room 374, bed 1. CHIEF COMPLAINT: Fever and left lower quadrant pain of 1-day duration. HISTORY OF PRESENT ILLNESS: This is a 72-year-old female was seen earlier today in room 374, bed 1, who has history of diabetes mellitus, hypertension, depression, cerebrovascular accident 21 years ago, and chronic back pain syndrome, who was admitted with fevers and chills and vomiting, although she denies any dysuria or frequency, but she feels at times she does have some frequency and was given Cipro as an outpatient and failed, but she states she only took 1 dose of it and she has been having some shortness of breath and cough. REVIEW OF SYSTEMS: A 12-point review of systems is performed. PAST MEDICAL HISTORY: Significant for diabetes mellitus, hypertension, cerebrovascular accident 21 years ago, depression, chronic back pain. PAST SURGICAL HISTORY: Significant for D and C, right leg fracture repair, cholecystectomy, and . ALLERGIES: IT IS WRITTEN THAT SHE IS ALLERGIC TO PENICILLIN. THE PATIENT DENIES ANY ALLERGIES TO PENICILLIN. SHE SAID SHE DOES NOT KNOW. SHE BELIEVES HER DAUGHTER MAY BE ALLERGIC TO PENICILLIN. SHE DENIES EVER HAVING A REACTION TO PENICILLIN, ALTHOUGH ON THE CHART IT SAYS THAT SHE HAS TYPE 1 ANAPHYLAXIS. SHE DENIES ANY ALLERGIES. MEDICATIONS AT HOME: Include the patient to be on Lexapro, aspirin, metoprolol, metformin, glipizide, Diovan, Januvia, nifedipine, and tramadol. PHYSICAL EXAMINATION: GENERAL: The patient is in bed. VITAL SIGNS: Has a temperature of 99.7. At home, she had a temperature of 101. The patient's heart rate is at 95, it was up to 113. Respiratory rate of 22 and blood pressure 151/81. HEENT: Unremarkable. NECK: Supple. LUNGS: Have decreased breath sounds. HEART: Normal S1, S2. ABDOMEN: Mild tenderness. No rebound, no guarding, no masses. LABORATORY EXAMINATION: Reveals a white count of 8.2, but she does have 9% bands and hemoglobin of 12. Chemistries reveal a BUN of 26. Creatinine is 1.6. Creatinine prior to this in March 2017 was 1.1. The patient does have a glucose of 326, hemoglobin A1c is 11.3. LFTs are normal. Urinalysis reveals too numerous to count wbc's, many bacteria, large blood, trace leukocyte esterase. The patient had a CAT scan of the abdomen and pelvis, which is negative for diverticulosis and no acute abdominal pathology, although CAT scan of the abdomen and pelvis was done without p.o. or IV contrast. Chest x-ray was negative. ASSESSMENT/PLAN: A 72-year-old female who is admitted with severe sepsis, urine as the source, with acute kidney injury with a creatinine is changed from 1.1 to 1.6 on this admission, who according to the chart is allergic to penicillin, although she is not, currently on aztreonam, Flagyl, and vancomycin, pending blood cultures, urine cultures and we will follow with you. Brijesh Shay MD
[2018-12-18] MEDS: Aspirin-Dipyridamole 200-25 mg ER Cap PO SCH (10:25)
[2018-12-18] MEDS: Aztreonam 1 Gm in NS 100mL 100 ML IVPB SCH ×2 (10:25→21:46)
[2018-12-18] MEDS: NIFEdipine 30 mg ER Tab PO SCH (10:26)
[2018-12-18] MEDS: Sodium Chloride 0.9% 1,000 ML IV SCH ×2 (10:26→18:01)
[2018-12-18] MEDS: Nystatin 100,000 Units/gm Topical Pow(15 gm) TOP SCH ×2 (10:26→18:01)
[2018-12-18] MEDS: Vancomycin 1gm in NS 250ml 1 GM/250 ML BAG IVPB SCH (10:27)
[2018-12-18] MEDS: Insulin Detemir 100 units/ml Vial (Levemir) SC SCH (21:45)
[2018-12-19] MEDS: metroNIDAZOLE IV 500 mg/100 ml 500 MG/100 ML BAG IVPB SCH ×2 (05:30→14:29)
[2018-12-19 06:44] LABS: BASO # 0.02 K/mm3 (0.0-2.0); BASO % 0.2 % (0.0-3.0); EOS # 0.1 (0.0-0.7); EOS % 0.4 % (1.5-5.0); HEMOGLOBIN 11.1 g/dL (12.0-16.0); LYMPH # 0.8 (1.2-3.4); MEAN CELL VOLUME 85.8 fl (80.0-105.0); MEAN CORPUSCULAR HEMOGLOBIN 27.7 pg (25.0-35.0); MEAN CORPUSCULAR HGB CONC 32.3 g/dl (31.0-37.0); MEAN PLATELET VOLUME 9.5 fl (7.0-11.0); MONO # 1.2 (0.1-0.6); MONO % 10.2 % (1.0-6.0); RBC 4.01 10^6/uL (3.5-6.1); RED CELL DISTRIBUTION WIDTH 14.3 % (11.5-14.5); WHITE BLOOD COUNT 11.3 10^3/uL (4.5-11.0)
[2018-12-19 07:12] LABS: ALBUMIN 3.2 g/dL (3.0-4.8); CALCIUM 8.5 mg/dL (8.4-10.5)
[2018-12-19] MEDS: NIFEdipine 30 mg ER Tab PO SCH (09:28)
[2018-12-19] MEDS: Insulin Reg-HIGH-Coverage SC SCH ×4 (09:29→22:12)
[2018-12-19] MEDS: Vancomycin 1gm in NS 250ml 1 GM/250 ML BAG IVPB SCH (09:34)
--- NOTE | 2018-12-19 09:41 | RAD ---
Date of service: 12/19/2018 HISTORY: congestion COMPARISON: 12/17/2018 TECHNIQUE: 1 view obtained. FINDINGS: LUNGS: Mild diffuse interstitial changes. Patchy infiltrate in the right lower lobe PLEURA: No significant pleural effusion identified, no pneumothorax apparent. CARDIOVASCULAR: Aortic calcification Normal cardiac size. No pulmonary vascular congestion. OSSEOUS STRUCTURES: No significant abnormalities. VISUALIZED UPPER ABDOMEN: Normal. OTHER FINDINGS: None. IMPRESSION: Mild diffuse interstitial changes. Patchy infiltrate in the right lower lobe
[2018-12-19] MEDS: Aspirin-Dipyridamole 200-25 mg ER Cap PO SCH (09:59)
[2018-12-19] MEDS: Aztreonam 1 Gm in NS 100mL 100 ML IVPB SCH (10:14)
[2018-12-19] MEDS: Nystatin 100,000 Units/gm Topical Pow(15 gm) TOP SCH ×2 (10:18→18:27)
[2018-12-19] MEDS ORDERED: Magnesium Sulfate 1 gm in D5W 1 GM/100 ML BAG IVPB ONE (11:35)
[2018-12-19] MEDS: Sodium Chloride 0.9% 1,000 ML IV SCH (12:17)
--- NOTE | 2018-12-19 12:26 | CP.PCM.PN ---
<Wilver Hickman - Last Filed: 12/19/18 21:02> Subjective - Date & Time of Evaluation Date of Evaluation: 12/19/18 Time of Evaluation: 12:22 - Subjective Subjective: Wilver Hickman DO PGy1 - Internal Medicine Personal Injury Attorney - Hospitalist Progress Note Patient was seen and evaluated at bedside this morning; complaining of mild productive cough w/ SOB. Complaining of BL hand swelling at this time. Denies dysuria however does complain of urinary frequency. Reports constipation as well. Objective - Vital Signs/Intake and Output Vital Signs (last 24 hours): Temp Pulse Resp BP Pulse Ox 98.7 F 88 22 168/79 H 97 12/19/18 08:01 12/19/18 08:01 12/19/18 08:01 12/19/18 11:27 12/19/18 08:01 Intake and Output: 12/19/18 12/19/18 06:59 18:59 Intake Total 1530 Output Total 800 Balance 730 - Medications Medications: Current Medications Acetaminophen (Tylenol 325mg Tab) 650 mg PO Q4H PRN PRN Reason: Fever >100.4 F Last Admin: 12/18/18 18:02 Dose: 650 mg Albuterol/Ipratropium (Duoneb 3 Mg/0.5 Mg (3 Ml) Ud) 3 ml IH Q2H PRN PRN Reason: Shortness of Breath Albuterol/Ipratropium (Duoneb 3 Mg/0.5 Mg (3 Ml) Ud) 3 ml IH [id number] [facility] Stop: 12/20/18 08:01 Dipyridamole/Aspirin (Aggrenox 25-200 Mg) 1 ea PO DAILY [facility] Last Admin: 12/19/18 09:59 Dose: 1 ea Docusate Sodium (Colace) 100 mg PO DAILY [facility] Escitalopram Oxalate (Lexapro) 10 mg PO DAILY [facility] Last Admin: 12/19/18 09:27 Dose: 10 mg Heparin Sodium (Porcine) (Heparin) 5,000 units SC Q8 [facility]; Protocol Last Admin: 12/19/18 05:30 Dose: 5,000 units Aztreonam (Azactam 1 Gm) 100 mls @ 100 mls/hr IVPB Q12H [facility]; Protocol Stop: 12/26/18 22:01 Last Admin: 12/19/18 10:14 Dose: 100 mls/hr Metronidazole (Flagyl) 500 mg in 100 mls @ 100 mls/hr IVPB Q8 [facility]; Protocol Stop: 12/27/18 06:01 Last Admin: 12/19/18 05:30 Dose: 100 mls/hr Sodium Chloride (Sodium Chloride 0.9%) 1,000 mls @ 70 mls/hr IV .[id number] [facility] Last Admin: 12/19/18 12:17 Dose: 70 mls/hr Magnesium Sulfate/Dextrose (Magnesium Sulfate 1 Gm/100 Ml D5w) 1 gm in 100 mls @ 100 mls/hr IVPB ONCE ONE Stop: 12/19/18 12:34 Insulin Detemir (Levemir) 15 unit SC HS [facility] Last Admin: 12/18/18 21:45 Dose: 15 units Insulin Human Regular (Humulin R High) 0 units SC ACHS [facility]; Protocol Last Admin: 12/19/18 09:29 Dose: 4 units Metoprolol Tartrate (Lopressor) 100 mg PO BID [facility] Last Admin: 12/19/18 09:34 Dose: 100 mg Nifedipine (Procardia Xl) 30 mg PO DAILY [facility] Last Admin: 12/19/18 09:28 Dose: 30 mg Nystatin (Nystop Topical Powder) 0 gm TOP BID [facility] Last Admin: 12/19/18 10:18 Dose: 1 applic Tramadol HCl (Ultram) 50 mg PO TID PRN PRN Reason: Pain, moderate (4-7) Last Admin: 12/18/18 10:46 Dose: 50 mg - Labs Labs: 12/19/18 06:00 12/19/18 06:00 - Constitutional Appears: Well, Non-toxic, No Acute Distress - Head Exam Head Exam: ATRAUMATIC, NORMOCEPHALIC - Eye Exam Eye Exam: EOMI, PERRL - ENT Exam ENT Exam: Mucous Membranes Moist - Respiratory Exam Respiratory Exam: Rales, Wheezes, NORMAL BREATHING PATTERN - Cardiovascular Exam Cardiovascular Exam: REGULAR RHYTHM, RRR, +S1, +S2. absent: Murmur - GI/Abdominal Exam GI & Abdominal Exam: Distended (tympanic\\), Soft. absent: Tenderness - Extremities Exam Extremities Exam: Normal Capillary Refill, Normal Inspection. absent: Pedal Edema Additional comments: Distal Pulses 2+ LE BL - Neurological Exam Neurological Exam: Alert, Awake, CN II-XII Intact, Oriented x3 - Psychiatric Exam Psychiatric exam: Normal Affect, Normal Mood - Skin Skin Exam: Dry, Intact, Normal Color, Warm Assessment and Plan - Assessment and Plan (Free Text) Plan: 72F w/ PMH HTN, DM, CVA (21yr ago), Depression, Chronic back pain, [place] [facility] [place]/ complaints of fever, chill, vomiting. Noted to be septic on presentation w/ elevated lactate, hypotension, tachycardia. Patient started on IV ABX source initially deemed to be 2/2 pyelonephritis w/ KENN Cr 1.6 however urine cultures negative. Sepsis - Resolved Source: Pyelonephritis vs PNA undetermined CTAP showed non specific L perinephric stranding Initial CXR negative; Repeat CXR 12/19 - Patchy infiltrate in RLL ; WBC trending upward; Patient febrile throughout the day Continue Flagyl + Vanc Stopped Aztreonam Started Levaquin ID Following, appreciate reccs New onset RLL congestion: PNA vs CHF BNP 3000 Stopped IVF Lasix 20 IVP Once Scheduled Duonebs Q6H x24 hours Follow up ECHO KENN BUN/Cr improved DC IVF Uncontrolled DM Hold home medications: metformin, januniva, and glipizide Event Marketing Coordinator Consulted HbA1C 11.3 Levemir 15HS ISS Regular ACHS Patient stated over the weekend that she did not want to be on home insulin Podiatry consulted for diabetic foot care HTN Contiue Lopressor and Nifedipine XL Hold Diovan due to KENN H/o CVA Cont Aggrenox H/o Depression Cont Lexapro H/o Chronic Back Pain Cont Tramadol prn GI / DVT PPX GI not indicated at this time DVT Heparin 5000 Q12 Dispo: Once Medically Optimized Patient TCU vs [facility] depending on patient's progress - as per PT Patient was seen, examined, and discussed w/ attending Dr. Darcy Hickman DO PGY1 - Internal Medicine Personal Injury Attorney - Hospitalist Progress Note <Darcy Hickman R - Last Filed: 12/20/18 06:53> Objective - Vital Signs/Intake and Output Vital Signs (last 24 hours): Temp Pulse Resp BP Pulse Ox 99.8 F H 81 20 154/70 H 93 L 12/19/18 23:40 12/20/18 06:00 12/19/18 23:40 12/19/18 23:40 12/19/18 17:19 - Medications Medications: Current Medications Acetaminophen (Tylenol 325mg Tab) 650 mg PO Q4H PRN PRN Reason: Fever >100.4 F Last Admin: 12/20/18 00:32 Dose: 650 mg Albuterol/Ipratropium (Duoneb 3 Mg/0.5 Mg (3 Ml) Ud) 3 ml IH Q2H PRN PRN Reason: Shortness of Breath Last Admin: 12/20/18 05:46 Dose: 3 ml Albuterol/Ipratropium (Duoneb 3 Mg/0.5 Mg (3 Ml) Ud) 3 ml IH [id number] [facility] Stop: 12/20/18 08:01 Last Admin: 12/20/18 01:08 Dose: 3 ml Dipyridamole/Aspirin (Aggrenox 25-200 Mg) 1 ea PO DAILY [facility] Last Admin: 12/19/18 09:59 Dose: 1 ea Docusate Sodium (Colace) 100 mg PO DAILY [facility] Last Admin: 12/19/18 12:37 Dose: 100 mg Escitalopram Oxalate (Lexapro) 10 mg PO DAILY [facility] Last Admin: 12/19/18 09:27 Dose: 10 mg Heparin Sodium (Porcine) (Heparin) 5,000 units SC Q8 [facility]; Protocol Last Admin: 12/20/18 05:36 Dose: 5,000 units Aztreonam (Azactam 1 Gm) 100 mls @ 100 mls/hr IVPB Q12H [facility]; Protocol Stop: 12/26/18 22:01 Last Admin: 12/19/18 10:14 Dose: 100 mls/hr Vancomycin HCl (Vancomycin 750 Mg In Ns) 750 mg in 250 mls @ 167 mls/hr IVPB Q12H [facility]; Protocol Stop: 12/26/18 20:16 Last Admin: 12/19/18 22:12 Dose: 167 mls/hr Insulin Detemir (Levemir) 15 unit SC HS [facility] Last Admin: 12/19/18 22:15 Dose: 15 units Insulin Human Regular (Humulin R High) 0 units SC ACHS [facility]; Protocol Last Admin: 12/19/18 22:12 Dose: Not Given Levofloxacin/Dextrose (Levaquin 750mg) 750 mg IVPB QOD [facility]; Protocol Metoprolol Tartrate (Lopressor) 100 mg PO BID [facility] Last Admin: 12/19/18 17:33 Dose: 100 mg Metronidazole (Flagyl) 500 mg PO Q8 [facility]; Protocol Stop: 12/24/18 22:01 Last Admin: 12/20/18 05:35 Dose: 500 mg Nifedipine (Procardia Xl) 30 mg PO DAILY [facility] Last Admin: 12/19/18 09:28 Dose: 30 mg Nystatin (Nystop Topical Powder) 0 gm TOP BID [facility] Last Admin: 12/19/18 18:27 Dose: Not Given Polyethylene Glycol (Miralax) 17 gm PO DAILY [facility] Last Admin: 12/19/18 17:33 Dose: 17 gm Tramadol HCl (Ultram) 50 mg PO TID PRN PRN Reason: Pain, moderate (4-7) Last Admin: 12/18/18 10:46 Dose: 50 mg - Labs Labs: 12/19/18 06:00 12/19/18 06:00 Attending/Attestation - Attestation I have personally seen and examined this patient.: Yes I have fully participated in the care of the patient.: Yes I have reviewed all pertinent clinical information, including history, physical exam and plan: Yes Notes (Text): Patient seen and examined by me with resident at approximately 10:30 AM on 12/19/18. Case including HPI, physical exam, and assessment and plan discussed with resident. Agree with above with following additions/corrections. Patient is a 72 year old female with past medical history significant for DM2, HTN, CVA, depression and chronic back pain that presented to the emergency room with fever, chills, and vomiting. Patient states she is feeling ok. Complains of shortness of breath and states the O2 via nasal cannula is helping. Also complains of "mild swelling" in her hands. She denies any chest pain or palpitations. No nausea or vomiting. States her abdomen feels "full" because she has not had a bowel movement since being in the hospital. No headaches or dizziness. No fevers or chills. States she had burning with urination earlier. Physical exam: General: Awake and alert sitting up in bed in no acute distress. HEENT: Normocephalic, atraumatic. Extraocular muscles intact, pupils equal and reactive, no scleral icterus. Oropharynx is pink and moist. No pharyngeal erythema or exudate appreciated. Neck is supple. Cardiovascular: Regular rhythm. Normal S1 and S2. No murmurs, rubs, or gallops appreciated Pulmonary: Mild tachypnea. Decreased breath sounds. Positive expiratory wheezing. No rales or rhonchi appreciated. Gastrointestinal: Soft, nondistended. Nontender. Positive bowel sounds all 4 quadrants. No guarding. Musculoskeletal: Moves all extremities. No calf tenderness. No edema. Central nervous system: AAOx3. CN 2-12 grossly inact Dermatologic: Skin warm and dry. Assessment and plan: Patient is a 72 year old female with past medical history significant for DM2, HTN, CVA, depression and chronic back pain that presented to the emergency room with fever, chills, and vomiting. 1. Sepsis. ID following, recommendations appreciated. Possible pneumonia. Lactic acidosis resolved. Hypotension resolved. Afebrile today. Slight leukocytosis. Chest xray per radiologist showed mild diffuse interstitial changes, patchy infiltrate in the right lower lobe. Pro-calcitonin elevated at 12.57. Continue Aztreonam and Flagyl. Urine culture with no growth. Blood culture with no growth. CT abd/pelvis per radiologist showed no acute abdominal or pelvic abnormality, left colonic diverticulosis without CT evidence for acute diverticulitis. 2. Elevated BNP. Shortness of breath. Lasix given. Follow up 2d Echo. Continue O2 via nasal cannula as needed. Continue nebulizer treatments. 3. Acute kidney injury. Improved s/p IV fluids. Continue to monitor. 4. DM2 with hyperglycemia. Continue insulin sliding scale. Continue Levemir. Hgb A1C 11.3. Continue to monitor accuchecks. 5. Essential hypertension. Continue Procardia and metoprolol 6. CVA. Continue Aggrenox. 7. Chronic back pain. Continue Tramadol as needed. 8. Depression. Continue Lexapro 9. Constipation. Placed on Colace and miralax. 10. DVT prophylaxis. Heparin. Case discussed in detail with the patient regarding current diagnosis and treatment plan. All questions answered.
[2018-12-19] MEDS ORDERED: Albuterol-Ipratrop 3 mg / 0.5 (3 ml) UD IH STA ×2 (12:39→12:45)
[2018-12-19] MEDS: Albuterol-Ipratrop 3 mg / 0.5 (3 ml) UD IH SCH ×2 (13:30→20:38)
[2018-12-19] MEDS: POLYETHYLENE GLYCOL 3350 17 GM/Dose PACKET PO SCH (17:33)
[2018-12-19] MEDS ORDERED: levoFLOXacin 750 mg in D5W 150 ML BAG IVPB SCH (20:00)
--- NOTE | 2018-12-19 22:05 | PN ---
DATE: 12/19/2018 SUBJECTIVE: The patient is in bed, in no acute distress. She is having fevers. PHYSICAL EXAMINATION VITAL SIGNS: Temperature of 102, heart rate of 93, blood pressure is 150/70, respiratory rate of 18. HEENT: Unremarkable. NECK: Supple. LUNGS: Decreased breath sounds. HEART: Normal S1 and S2. ABDOMEN: Soft. LABORATORY DATA: Reveals the patient's white count 11,300 and hemoglobin of 11. Chemistries are noted. BUN of 23, creatinine of 1.2, procalcitonin is 12.57. Urinalysis is noted. Influenza is negative. Blood cultures are negative. Urine cultures are negative. The patient's chest x-ray; patchy infiltrate in the right lower lobe. EKG showed QTc of 449. ASSESSMENT AND PLAN: This is a 75-year-old female, seen earlier today with ALLERGY TO PENICILLIN according to the chart, history of diabetes, hypertension, depression, cerebrovascular accident 21 years ago, chronic pain syndrome, admitted with vomiting, fevers, and chills. She was given Cipro as an outpatient, but only took one dose. Admitted with severe sepsis, acute kidney injury. Urine cultures negative. The patient does have right lower lobe pneumonia. CAT scan of the abdomen; no acute pathology. We will order methicillin-resistant Staphylococcus aureus screen test, urine Legionella antigen, sputum culture. We will start the patient on Levaquin. We will make further recommendations. We will follow with you. We will change the Flagyl to p.o. Brijesh Shay MD
[2018-12-19] MEDS: Vancomycin 750mg 750 MG/250 ML BAG IVPB SCH (22:12)
[2018-12-19] MEDS: Insulin Detemir 100 units/ml Vial (Levemir) SC SCH (22:15)
[2018-12-20] MEDS: Albuterol-Ipratrop 3 mg / 0.5 (3 ml) UD IH SCH ×3 (01:08→20:36)
[2018-12-20] MEDS: Albuterol-Ipratrop 3 mg / 0.5 (3 ml) UD IH PRN (05:46)
[2018-12-20 07:20] LABS: BASO # 0.03 K/mm3 (0.0-2.0); BASO % 0.3 % (0.0-3.0); EOS % 0.2 % (1.5-5.0); HEMOGLOBIN 10.7 g/dL (12.0-16.0); LYMPH # 0.7 (1.2-3.4); LYMPH % 7.1 % (22.0-35.0); MEAN CELL VOLUME 83.9 fl (80.0-105.0); MEAN CORPUSCULAR HEMOGLOBIN 27.7 pg (25.0-35.0); MONO # 1.4 (0.1-0.6); MONO % 13.6 % (1.0-6.0); RBC 3.86 10^6/uL (3.5-6.1); WHITE BLOOD COUNT 10.3 10^3/uL (4.5-11.0)
[2018-12-20 07:37] LABS: ALB/GLOB RATIO 0.9 (1.1-1.8); ALBUMIN 2.8 g/dL (3.0-4.8); CALCIUM 8.2 mg/dL (8.4-10.5)
[2018-12-20] MEDS ORDERED: Insulin Detemir 100 units/ml Vial (Levemir) SC SCH (08:33)
[2018-12-20] MEDS: Vancomycin 750mg 750 MG/250 ML BAG IVPB SCH ×2 (08:48→21:11)
[2018-12-20] MEDS: Insulin Reg-HIGH-Coverage SC SCH ×4 (08:50→21:28)
[2018-12-20] MEDS: Aspirin-Dipyridamole 200-25 mg ER Cap PO SCH (10:00)
[2018-12-20] MEDS: Aztreonam 1 Gm in NS 100mL 100 ML IVPB SCH ×2 (10:38→21:12)
[2018-12-20] MEDS: Potassium Phosphate 15 MMOLE in Sodium Chloride 0.9% 250 ML IVPB ONE ×2 (10:39→12:00)
[2018-12-20] MEDS: POLYETHYLENE GLYCOL 3350 17 GM/Dose PACKET PO SCH (10:39)
[2018-12-20] MEDS: NIFEdipine 30 mg ER Tab PO SCH (10:40)
--- NOTE | 2018-12-20 13:01 | RAD ---
Date of service: 12/20/2018 HISTORY: worsening congestion COMPARISON: 12/19/2018 TECHNIQUE: Chest PA and lateral views FINDINGS: LUNGS: Increasing bibasilar perihilar infiltrates consistent with CHF PLEURA: No significant pleural effusion identified. No pneumothorax apparent. CARDIOVASCULAR: Aortic calcification Normal cardiac size. No pulmonary vascular congestion. OSSEOUS STRUCTURES: No significant abnormalities. VISUALIZED UPPER ABDOMEN: Normal. OTHER FINDINGS: None. IMPRESSION: Increasing bibasilar perihilar infiltrates consistent with CHF
--- NOTE | 2018-12-20 17:03 | CP.PCM.PCO ---
Physician Communication Note - Physician Communication Note Physician Communication Note: PT rec. TCU, pt. with expiratory wheezes, congested.repeat cxr
--- NOTE | 2018-12-20 17:53 | CP.PCM.PN ---
<Wilver Hickman - Last Filed: 12/20/18 17:32> Subjective - Date & Time of Evaluation Date of Evaluation: 12/20/18 Time of Evaluation: 10:00 - Subjective Subjective: Wilver Hickman DO PGy1 - Internal Medicine Machine Fitter - Hospitalist Progress Note Patient was seen and examined at bedside this morning. No acute events overnight; patient remained afebrile. No complaints of fevers, chills, urinary symptoms, abd pain, n/v/d at time of evaluation. Patient continues to complain of constipation; Stool softner/laxative availability discussed w/ patient. Objective - Vital Signs/Intake and Output Vital Signs (last 24 hours): Temp Pulse Resp BP Pulse Ox 98 F 94 H 20 172/82 H 91 L 12/20/18 16:39 12/20/18 16:39 12/20/18 16:39 12/20/18 16:39 12/20/18 16:39 - Medications Medications: Current Medications Acetaminophen (Tylenol 325mg Tab) 650 mg PO Q4H PRN PRN Reason: Fever >100.4 F Last Admin: 12/20/18 00:32 Dose: 650 mg Albuterol/Ipratropium (Duoneb 3 Mg/0.5 Mg (3 Ml) Ud) 3 ml IH Q2H PRN PRN Reason: Shortness of Breath Last Admin: 12/20/18 05:46 Dose: 3 ml Albuterol/Ipratropium (Duoneb 3 Mg/0.5 Mg (3 Ml) Ud) 3 ml IH [id number] [facility] Dipyridamole/Aspirin (Aggrenox 25-200 Mg) 1 ea PO DAILY [facility] Last Admin: 12/20/18 10:00 Dose: 1 ea Docusate Sodium (Colace) 100 mg PO DAILY [facility] Last Admin: 12/20/18 10:38 Dose: 100 mg Escitalopram Oxalate (Lexapro) 10 mg PO DAILY [facility] Last Admin: 12/20/18 10:38 Dose: 10 mg Furosemide (Lasix) 20 mg IVP Q12H [facility] Heparin Sodium (Porcine) (Heparin) 5,000 units SC Q8 [facility]; Protocol Last Admin: 12/20/18 14:13 Dose: 5,000 units Aztreonam (Azactam 1 Gm) 100 mls @ 100 mls/hr IVPB Q12H [facility]; Protocol Stop: 12/26/18 22:01 Last Admin: 12/20/18 10:38 Dose: 100 mls/hr Vancomycin HCl (Vancomycin 750 Mg In Ns) 750 mg in 250 mls @ 167 mls/hr IVPB Q12H [facility]; Protocol Stop: 12/26/18 20:16 Last Admin: 12/20/18 08:48 Dose: 167 mls/hr Insulin Detemir (Levemir) 20 unit SC HS [facility] Insulin Human Regular (Humulin R High) 0 units SC ACHS [facility]; Protocol Last Admin: 12/20/18 14:17 Dose: 10 units Levofloxacin/Dextrose (Levaquin 750mg) 750 mg IVPB QOD [facility]; Protocol Metoprolol Tartrate (Lopressor) 100 mg PO BID [facility] Last Admin: 12/20/18 10:39 Dose: 100 mg Metronidazole (Flagyl) 500 mg PO Q8 [facility]; Protocol Stop: 12/24/18 22:01 Last Admin: 12/20/18 14:13 Dose: 500 mg Nifedipine (Procardia Xl) 30 mg PO DAILY [facility] Last Admin: 12/20/18 10:40 Dose: 30 mg Nystatin (Nystop Topical Powder) 0 gm TOP BID [facility] Last Admin: 12/19/18 18:27 Dose: Not Given Polyethylene Glycol (Miralax) 17 gm PO DAILY [facility] Last Admin: 12/20/18 10:39 Dose: 17 gm Tramadol HCl (Ultram) 50 mg PO TID PRN PRN Reason: Pain, moderate (4-7) Last Admin: 12/18/18 10:46 Dose: 50 mg - Labs Labs: 12/20/18 07:05 12/20/18 07:05 - Constitutional Appears: Well, Non-toxic, No Acute Distress - Head Exam Head Exam: ATRAUMATIC, NORMOCEPHALIC - Eye Exam Eye Exam: EOMI, PERRL - ENT Exam ENT Exam: Mucous Membranes Moist - Respiratory Exam Respiratory Exam: Continues w/ crackles Bilaterally w/ mild wheezes diffusely - Cardiovascular Exam Cardiovascular Exam: REGULAR RHYTHM, RRR, +S1, +S2. absent: Murmur - GI/Abdominal Exam GI & Abdominal Exam: Distended (tympanic), Soft. absent: Tenderness - Extremities Exam Extremities Exam: Normal Capillary Refill, Normal Inspection. absent: Pedal Edema Additional comments: Distal Pulses 2+ LE BL - Neurological Exam Neurological Exam: Alert, Awake, CN II-XII Intact, Oriented x3 - Psychiatric Exam Psychiatric exam: Normal Affect, Normal Mood - Skin Skin Exam: Dry, Intact, Normal Color, Warm Assessment and Plan - Assessment and Plan (Free Text) Assessment: 72F w/ PMH HTN, DM, CVA (21yr ago), Depression, Chronic back pain, presented to [facility] on 12/17 w/ complaints of fever, chill, vomiting. Noted to be septic on presentation w/ elevated lactate, hypotension, tachycardia. Patient started on IV ABX source initially deemed to be 2/2 pyelonephritis w/ KENN Cr 1.6 however urine cultures negative. PLAN: Pulmonary Congestion: PNA vs CHF BNP 3000 Repeat CXR today show worsening Bibasilar Consolidation consistent w/ CHF Start Lasix 20 IVP Q12 ECHO Prelim EF 65% - pending official results Wheezing on examination - DUONEB Q4H [facility] Sepsis - Resolved Patient Febrile Lastnight; Afebrile this AM and Throughout the day; Leukocytosis resolved CTAP showed non specific L perinephric stranding Continue Flagyl + Vanc + Aztreonam + Levaquin BCX 12/17 - 10/29 Negative @ 72Hr ID Following, appreciate reccs DM Elevated Fasting BG this AM: 294 Hold home medications: metformin, januniva, and glipizide HbA1C 11.3 Levemir increased to 20 HS ISS Regular ACHS - Required 18units Manager [employer] Consulted Patient stated over the weekend that she did not want to be on home insulin Hypokalemia / Hypophosphatemia Replete w/ KPhos Recheck in AM HTN Contiue Lopressor 100 BID Continue Nifedipine XL 30 Daily Hold Diovan due to previous KENN H/o CVA Cont Aggrenox H/o Depression Cont Lexapro H/o Chronic Back Pain Cont Tramadol prn KENN - Resolved GI / DVT PPX GI not indicated at this time DVT Heparin 5000 Q18 Dispo: [facility] vs [facility]CU once medically optimized as per PT Patient was seen, examined, and discussed w/ attending Dr. Darcy Hickman DO PGY1 - Internal Medicine Machine Fitter - Hospitalist Progress Note <Darcy Hickman R - Last Filed: 12/20/18 18:56> Objective - Vital Signs/Intake and Output Vital Signs (last 24 hours): Temp Pulse Resp BP Pulse Ox 98 F 94 H 20 172/82 H 91 L 12/20/18 16:39 12/20/18 17:51 12/20/18 16:39 12/20/18 17:52 12/20/18 16:39 - Medications Medications: Current Medications Acetaminophen (Tylenol 325mg Tab) 650 mg PO Q4H PRN PRN Reason: Fever >100.4 F Last Admin: 12/20/18 00:32 Dose: 650 mg Albuterol/Ipratropium (Duoneb 3 Mg/0.5 Mg (3 Ml) Ud) 3 ml IH Q2H PRN PRN Reason: Shortness of Breath Last Admin: 12/20/18 05:46 Dose: 3 ml Albuterol/Ipratropium (Duoneb 3 Mg/0.5 Mg (3 Ml) Ud) 3 ml IH [id number] [facility] Dipyridamole/Aspirin (Aggrenox 25-200 Mg) 1 ea PO DAILY [facility] Last Admin: 12/20/18 10:00 Dose: 1 ea Docusate Sodium (Colace) 100 mg PO DAILY [facility] Last Admin: 12/20/18 10:38 Dose: 100 mg Escitalopram Oxalate (Lexapro) 10 mg PO DAILY [facility] Last Admin: 12/20/18 10:38 Dose: 10 mg Furosemide (Lasix) 20 mg IVP Q12H [facility] Last Admin: 12/20/18 17:52 Dose: 20 mg Heparin Sodium (Porcine) (Heparin) 5,000 units SC Q8 [facility]; Protocol Last Admin: 12/20/18 14:13 Dose: 5,000 units Aztreonam (Azactam 1 Gm) 100 mls @ 100 mls/hr IVPB Q12H [facility]; Protocol Stop: 12/26/18 22:01 Last Admin: 12/20/18 10:38 Dose: 100 mls/hr Vancomycin HCl (Vancomycin 750 Mg In Ns) 750 mg in 250 mls @ 167 mls/hr IVPB Q12H [facility]; Protocol Stop: 12/26/18 20:16 Last Admin: 12/20/18 08:48 Dose: 167 mls/hr Insulin Detemir (Levemir) 20 unit SC HS [facility] Insulin Human Regular (Humulin R High) 0 units SC ACHS [facility]; Protocol Last Admin: 12/20/18 17:52 Dose: 1 units Levofloxacin/Dextrose (Levaquin 750mg) 750 mg IVPB QOD [facility]; Protocol Metoprolol Tartrate (Lopressor) 100 mg PO BID [facility] Last Admin: 12/20/18 17:51 Dose: 100 mg Metronidazole (Flagyl) 500 mg PO Q8 [facility]; Protocol Stop: 12/24/18 22:01 Last Admin: 12/20/18 14:13 Dose: 500 mg Nifedipine (Procardia Xl) 30 mg PO DAILY [facility] Last Admin: 12/20/18 10:40 Dose: 30 mg Nystatin (Nystop Topical Powder) 0 gm TOP BID [facility] Last Admin: 12/19/18 18:27 Dose: Not Given Polyethylene Glycol (Miralax) 17 gm PO DAILY [facility] Last Admin: 12/20/18 10:39 Dose: 17 gm Tramadol HCl (Ultram) 50 mg PO TID PRN PRN Reason: Pain, moderate (4-7) Last Admin: 12/18/18 10:46 Dose: 50 mg - Labs Labs: 12/20/18 07:05 12/20/18 07:05 Attending/Attestation - Attestation I have personally seen and examined this patient.: Yes I have fully participated in the care of the patient.: Yes I have reviewed all pertinent clinical information, including history, physical exam and plan: Yes Notes (Text): Patient seen and examined by me with resident at approximately 3:20PM on 12/20/18. Case including HPI, physical exam, and assessment and plan discussed with resident. Agree with above with following additions/corrections. Patient is a 71-year-old female with past medical history significant for nonobstructive coronary artery disease, paroxysmal atrial fibrillation on Eliquis, COPD, hyperlipidemia, hypertension, osteoarthritis, rheumatoid arthritis, peripheral neuropathy, chronic pain, and anxiety that presented to the emergency room with shortness of breath. Patient states she is feeling ok. Complains of generalized abdominal pain, worsened with movement and palpation. She states shortness of breath has improved. She denies any chest pain or palpitations. No nausea or vomiting. No headaches or dizziness. No fevers or chills. No dysuria. Last bowel movement was yesterday. Patient also complains of chronic generalized pain. Physical exam: General: Awake and alert lying in bed in no acute distress. HEENT: Normocephalic, atraumatic. Extraocular muscles intact, pupils equal and reactive, no scleral icterus. Oropharynx is pink and moist. No pharyngeal erythema or exudate appreciated. Neck is supple. Cardiovascular: Irregulary irregular rhythm. No murmurs, rubs, or gallops appreciated Pulmonary: Normal respiratory effort. Decreased breath sounds at bases. No rhonchi, rales, or wheezing appreciated. Gastrointestinal: Soft, nondistended. Positive generalized abdominal tenderness with light palpation. Positive bowel sounds all 4 quadrants. No guarding. Musculoskeletal: Moves all extremities. No calf tenderness. No edema. Central nervous system: AAOx3. CN 2-12 grossly inact Dermatologic: Skin warm and dry. Bilateral buttocks with small lesions. Assessment and plan: Patient is a 71-year-old female with past medical history significant for nonobstructive coronary artery disease, paroxysmal atrial fibrillation on Eliquis, COPD, hyperlipidemia, hypertension, osteoarthritis, rheumatoid arthritis, peripheral neuropathy, chronic pain, and anxiety that presented to the emergency room with shortness of breath. 1. Sepsis secondary to health care associated pneumonia. ID following, recommendations appreciated. Pulmonary following, recommendations appreciated. Leukocytosis downtrending. Patient afebrile. Procalcitonin < 0.05. Continue Zosyn and Doxycycline. Urine for legionella negative. Strep pneumoniae antigen negative. Chest CT per radiologist showed small focal left lower lobe consolidation with probable small airways disease in the anterior segment right upper lone and small ill-defined opacities in the right middle lobe, like infectious etiology; stable 6 mm right middle lobe nodule; mild aneurysmal dilatation of the ascending thoracic aorta; mild dilatation of the main pulmonary artery; small hiatal hernia. 2. Possible herpes lesions on buttocks. ID following, recommendations appreciated. Wound culture positive for coag negative staph. Continue acyclovir. 3. Abdominal tenderness. Likely secondary to RA. Abdominal ultrasound per radiologist showed unremarkable abdominal sonogram. CT abdomen and pelvis per radiologist showed no acute intra-abdominal findings. 4. COPD exacerbation. Continue nebulizer treatments. Continue solu-medrol. Continue O2 via nasal cannula as needed. Linen Folder following, recommendations appreciated. 5. Atrial fibrillation. Rate controlled. Continued verapamil and eliquis. 6. Non-obstructive CAD. No acute issues. Continued ASA and Lipitor 7. Hypertension. Continue verapamil. 8. Hyperlipidemia. Continue Lipitor. 9. Peripheral neuropathy/Chronic pain. Continue home percocet as needed. Continue gabapentin. 10. Rheumatoid arthritis. Patient to continue outpatient follow up with her addiction counselor. 11. Tobacco abuse. Counseled at length on tobacco cessation. 12. GI/DVT prophylaxis. Protonix/Eliquis Case discussed in detail with the patient regarding current diagnosis and treatment plan. All questions answered.
--- NOTE | 2018-12-20 20:06 | CARD ---
APPROVED REPORT Date of service: 12/20/2018 EXAM: Two-dimensional and M-mode echocardiogram with Doppler and color Doppler. INDICATION PULMONARY CONGESTION/LVFX 2D DIMENSIONS Left Atrium (2D)4.8 (1.6-4.0cm)IVSd0.9 (0.7-1.1cm) LVDd4.4 (3.9-5.9cm)PWd1.1 (0.7-1.1cm) LVDs2.9 (2.5-4.0cm)FS (%) 33.9 % LVEF (%)63.1 (>50%) M-Mode DIMENSIONS Aortic Root2.40 (2.2-3.7cm)Aortic Cusp Exc.1.30 (1.5-2.0cm) Aortic Valve AoV Peak Eeowvuxr254.0cm/sAoV VTI46.1cmAO Peak GR.27mmHg LVOT Peak Ibttyqal626.0cm/sLVOT VTI30.10cmAO Mean GR.12mmHg Mitral Valve MV E Lciicqqz374.0cm/sMV A Fwgocrun91.3cm/sE/A ratio1.6 TDI Lateral E' Peak V7.99cm/sMedial E' Peak V8.19cm/sE/Lateral E'18.3 E/Medial E'17.8 Pulmonary Valve PV Peak Lxaabamm41.3cm/sPV Peak Grad.4mmHg Tricuspid Valve TR Peak Tlrmtlkk698ys/sRAP FVIUGUSH79etYfBE Peak Gr.43mmHg [id number] LEFT VENTRICLE The left ventricle is normal size. There is normal left ventricular wall thickness. The left ventricular function is normal.EF-55-60% There is normal LV segmental wall motion. The left ventricular diastolic function is normal. No left ventricle thrombus noted on this study. There is no ventricular septal defect visualized. There is no left ventricular aneurysm. There is no mass noted in the left ventricle. RIGHT VENTRICLE The right ventricle is normal size. There is normal right ventricular wall thickness. The right ventricular systolic function is normal. ATRIA The left atrium is mildly dilated. The right atrium size is normal. The interatrial septum is intact with no evidence for an atrial septal defect. AORTIC VALVE The aortic valve is thickened but opens well. The aortic valve is mildly sclerotic. No aortic regurgitation is present. There is no aortic valvular stenosis. There is no aortic valvular vegetation. MITRAL VALVE The mitral valve is thickened but opens well. Mitral regurgitation is trace to mild. There is no mitral valve stenosis. There is no evidence of mitral valve prolapse. TRICUSPID VALVE The tricuspid valve leaflets are thickened , but open well. There is moderate tricuspid regurgitation.RVSP-53 mmof hg. There is mild to moderate pulmonary hypertension. There is no tricuspid valve stenosis. There is no tricuspid valve prolapse or vegetation. PULMONIC VALVE The pulmonic valve is not well visualized. GREAT VESSELS The aortic root is normal in size. The ascending aorta is normal in size. The pulmonary artery is normal. The IVC is normal in size and collapses >50% with inspiration. PERICARDIAL EFFUSION There is no pleural effusion. There is no pericardial effusion. <Conclusion> The left ventricle is normal size. There is normal left ventricular wall thickness. The left ventricular function is normal.EF-55-60% Mitral regurgitation is trace to mild. There is moderate tricuspid regurgitation.RVSP-53 mmof hg. There is mild to moderate pulmonary hypertension. The IVC is normal in size and collapses >50% with inspiration. There is no pericardial effusion.
[2018-12-20] MEDS ORDERED: Ipratropium 0.02% Inhal Soln (0.5 mg/2.5 ml) UD IH PRN (20:39)
[2018-12-20] MEDS ORDERED: Levalbuterol 0.63 MG/3 ML Inhal Soln UD IH PRN (20:39)
--- NOTE | 2018-12-20 23:05 | PN ---
DATE: 12/20/2018 SUBJECTIVE: The patient is in bed in no acute distress, nontoxic. PHYSICAL EXAMINATION VITAL SIGNS: Temperature is 98, T-max yesterday was 102, blood pressure is 170/80, respiratory 20, heart rate of 94. HEENT: Unremarkable. NECK: Supple. CARDIOPULMONARY: Heart, normal S1, S2. LUNGS: Have decreased breath sounds. ABDOMEN: Soft, nontender. LABORATORY DATA: Reveals a white count of 10,000, hemoglobin of 10, platelets of 137. Chemistries reveals a BUN of 23, creatinine of 1.2. Blood cultures are negative. Urine cultures are negative. Urine for Legionella antigen was ordered and not sent, we will reorder it. ASSESSMENT AND PLAN: A 72-year-old female seen earlier who is ALLERGIC TO PENICILLIN according to chart, but not . She has had a history of diabetes, hypertension, depression, cerebrovascular accident 21 years ago, chronic pain syndrome, admitted with vomiting, fevers and chills, was given Cipro as outpatient but took only 1 pill, admitted with severe sepsis with acute kidney injury. The patient with right lower lobe pneumonia. Negative CT scan of the abdomen. Currently on Levaquin, vancomycin and Azactam. We will follow the fever curve and we will make further recommendations. Brijesh Shay MD
[2018-12-21] MEDS: Albuterol-Ipratrop 3 mg / 0.5 (3 ml) UD IH SCH ×5 (00:31→15:21)
--- NOTE | 2018-12-21 01:12 | CP.PCM.PCO ---
<Yash Desir - Last Filed: 12/21/18 02:01> Addendum Addendum: Dr Desir- House Doctor Night Float Pt on a fib on monitor, new onset per nursing, last dose of Metoprolol 100mg @ 17:51 EKG ordered- f/u rate and rhythm, plan to rate control if still in afib EKG reviewed: Afib @ 126 bpm irregular rhythm, on heart monitor rate @ 146 PE: gen- nad ncat heent- perrla, eomi cardio- irregular rhythm, s1+ s2+ resp- cta all 4 keen abd- nt nd ext- periph pulses present irregular rhythm, no swelling A: 73F admitted for abdominal pain P: cardizem 10 ivp / 2min given- rate brought down to 90s-100s after 20min, pt rate @ 120s-130s, transfer to for tele and cardizem drip <Kelli Almendarez - Last Filed: 12/21/18 06:00> Attending/Attestation - Attestation I have personally seen and examined this patient.: Yes I have fully participated in the care of the patient.: Yes I have reviewed all pertinent clinical information: Yes Notes (Text): 12/21/18 05:50 Pt seen.She has no complaints. Case discussed with the resident. EKG shows AFib with RVR ,no acute or ischemic changes noted. Pt treated with Cardizem 10 mg iv with very little improvement. Decided to place pt on cardizem drip and transferred her to tele floor. Subsequently pt converted to NSR.
[2018-12-21 01:44] LABS: URINE APPEARANCE SL CLOUDY (CLEAR); URINE BILIRUBIN NEGATIVE (NEGATIVE); URINE BLOOD MODERATE (NEGATIVE); URINE COLOR YELLOW (YELLOW); URINE GLUCOSE (UA) 250 mg/dL (NEGATIVE); URINE LEUKOCYTE ESTERASE NEGATIVE Leu/uL (NEGATIVE); URINE PROTEIN 100 mg/dL (<30 mg/dL); URINE UROBILINOGEN 0.2 E.U./dL (<1 E.U./dL)
[2018-12-21 02:02] LABS: URINE BACTERIA OCC /hpf; URINE RBC 0 - 2 /hpf (0-2)
[2018-12-21] MEDS ORDERED: diltiaZEM IVPB 100mg in NS 100 ML IV PRN ×2 (02:46→12:39)
[2018-12-21 07:00] LABS: BASO # 0.05 K/mm3 (0.0-2.0); BASO % 0.4 % (0.0-3.0); EOS # 0.1 (0.0-0.7); EOS % 0.5 % (1.5-5.0); LYMPH # 0.8 (1.2-3.4); LYMPH % 6.3 % (22.0-35.0); MEAN CELL VOLUME 83.9 fl (80.0-105.0); MEAN CORPUSCULAR HEMOGLOBIN 26.9 pg (25.0-35.0); MEAN CORPUSCULAR HGB CONC 32.1 g/dl (31.0-37.0); MEAN PLATELET VOLUME 8.9 fl (7.0-11.0); MONO # 1.5 (0.1-0.6); MONO % 11.5 % (1.0-6.0); RBC 4.09 10^6/uL (3.5-6.1); RED CELL DISTRIBUTION WIDTH 14.3 % (11.5-14.5); WHITE BLOOD COUNT 13.3 10^3/uL (4.5-11.0)
[2018-12-21 07:19] LABS: ALB/GLOB RATIO 0.9 (1.1-1.8); ALBUMIN 2.9 g/dL (3.0-4.8); CALCIUM 8.6 mg/dL (8.4-10.5)
--- NOTE | 2018-12-21 07:22 | CP.PCM.PN ---
<Wilver Hickman - Last Filed: 12/21/18 16:14> Subjective - Date & Time of Evaluation Date of Evaluation: 12/21/18 Time of Evaluation: 07:20 - Subjective Subjective: Wilver Hickman DO PGY1 - Internal Medicine Planning Feeder - Hospitalist Progress [facility] Nursing reported that patient is disoriented overnight; Verbally abusive; requesting sleep medication Given Atarax one dose by station air traffic control specialist resident. Subsequently patient noted to be in Afib w/ RVR overnight 12/21 @ 0200 - cardizem 10mg IVP overnight patient moved to [facility]. Patient was seen and examined this morning on telemetry floor. Upon evaluation this AM patient does not recall events of last night. Denies any complaints of chest pain, sob, fevers/chills urinary dysuria. Daughter at bedside who reports her mother is at baseline. Objective - Vital Signs/Intake and Output Vital Signs (last 24 hours): Temp Pulse Resp BP Pulse Ox 98 F 84 20 148/72 96 12/21/18 06:00 12/21/18 06:00 12/21/18 06:00 12/21/18 06:00 12/21/18 06:00 Intake and Output: 12/21/18 12/21/18 06:59 18:59 Intake Total 1120 Output Total 600 Balance 520 - Medications Medications: Current Medications Acetaminophen (Tylenol 325mg Tab) 650 mg PO Q4H PRN PRN Reason: Fever >100.4 F Last Admin: 12/20/18 00:32 Dose: 650 mg Albuterol/Ipratropium (Duoneb 3 Mg/0.5 Mg (3 Ml) Ud) 3 ml IH Q2H PRN PRN Reason: Shortness of Breath Last Admin: 12/20/18 05:46 Dose: 3 ml Albuterol/Ipratropium (Duoneb 3 Mg/0.5 Mg (3 Ml) Ud) 3 ml IH [id number] [facility] Last Admin: 12/21/18 03:37 Dose: Not Given Dipyridamole/Aspirin (Aggrenox 25-200 Mg) 1 ea PO DAILY [facility] Last Admin: 12/20/18 10:00 Dose: 1 ea Docusate Sodium (Colace) 100 mg PO DAILY [facility] Last Admin: 12/20/18 10:38 Dose: 100 mg Escitalopram Oxalate (Lexapro) 10 mg PO DAILY [facility] Last Admin: 12/20/18 10:38 Dose: 10 mg Furosemide (Lasix) 20 mg IVP Q12H [facility] Last Admin: 12/21/18 05:19 Dose: 20 mg Heparin Sodium (Porcine) (Heparin) 5,000 units SC Q8 [facility]; Protocol Last Admin: 12/21/18 05:18 Dose: 5,000 units Aztreonam (Azactam 1 Gm) 100 mls @ 100 mls/hr IVPB Q12H [facility]; Protocol Stop: 12/26/18 22:01 Last Admin: 12/20/18 21:12 Dose: 100 mls/hr Vancomycin HCl (Vancomycin 750 Mg In Ns) 750 mg in 250 mls @ 167 mls/hr IVPB Q12H [facility]; Protocol Stop: 12/26/18 20:16 Last Admin: 12/20/18 21:11 Dose: 167 mls/hr diltiaZEM IVPB 100mg in NS (Cardizem 100mg In Ns) 100 mls @ 5 mls/hr IV .Q20H PRN; Protocol PRN Reason: TITRATE PER MD ORDER Last Admin: 12/21/18 03:36 Dose: 5 mg/hr, 5 mls/hr Insulin Detemir (Levemir) 20 unit SC HS [facility] Last Admin: 12/20/18 22:17 Dose: 20 units Insulin Human Regular (Humulin R High) 0 units SC ACHS [facility]; Protocol Last Admin: 12/20/18 21:28 Dose: Not Given Ipratropium [place] (Atrovent) 0.5 mg IH [id number] PRN PRN Reason: Shortness of Breath Last Admin: 12/20/18 21:35 Dose: 0.5 mg Levalbuterol HCl (Xopenex) 0.63 mg IH [id number] PRN PRN Reason: Shortness of Breath Last Admin: 12/21/18 00:41 Dose: 0.63 mg Levofloxacin/Dextrose (Levaquin 750mg) 750 mg IVPB QOD [facility]; Protocol Metoprolol Tartrate (Lopressor) 100 mg PO BID [facility] Last Admin: 12/20/18 17:51 Dose: 100 mg Metronidazole (Flagyl) 500 mg PO Q8 [facility]; Protocol Stop: 12/24/18 22:01 Last Admin: 12/21/18 05:18 Dose: 500 mg Nifedipine (Procardia Xl) 30 mg PO DAILY [facility] Last Admin: 12/20/18 10:40 Dose: 30 mg Nystatin (Nystop Topical Powder) 0 gm TOP BID [facility] Last Admin: 12/19/18 18:27 Dose: Not Given Polyethylene Glycol (Miralax) 17 gm PO DAILY [facility] Last Admin: 12/20/18 10:39 Dose: 17 gm Tramadol HCl (Ultram) 50 mg PO TID PRN PRN Reason: Pain, moderate (4-7) Last Admin: 12/18/18 10:46 Dose: 50 mg - Labs Labs: 12/21/18 06:30 12/21/18 06:30 - Constitutional Appears: Well, Non-toxic, No Acute Distress - Head Exam Head Exam: ATRAUMATIC, NORMOCEPHALIC - Eye Exam Eye Exam: EOMI, PERRL - ENT Exam ENT Exam: Mucous Membranes Moist - Respiratory Exam Respiratory Exam: Unchanged wheezing + crackling - Cardiovascular Exam Cardiovascular Exam: REGULAR RHYTHM, RRR, +S1, +S2. absent: Murmur - GI/Abdominal Exam GI & Abdominal Exam: Distended (tympanic), Soft. absent: Tenderness - Extremities Exam Extremities Exam: Normal Capillary Refill, Normal Inspection. absent: Pedal Edema Additional comments: Distal Pulses 2+ LE BL - Neurological Exam Neurological Exam: Alert, Awake, CN II-XII Intact, At baseline as per daughter - Psychiatric Exam Psychiatric exam: Normal Affect, Normal Mood - Skin Skin Exam: Dry, Intact, Normal Color, Warm Assessment and Plan - Assessment and Plan (Free Text) Assessment: 73F w/ PMH HTN, DM, CVA (21yr ago), Depression, Chronic back pain, presented to [facility] [place] w/ complaints of fever, chill, vomiting. Noted to be septic on presentation w/ elevated lactate, hypotension, tachycardia. Noted to be septic most likely 2/2 PNA, Currently on IV ABX. Patient developed new onset Afib w/ RVR during hospitalization. PLAN: New Onset Atrial Fibrillation w/ RVR Patient noted to be in Afib w/ RVR last night on EKG; No prior hx afib reported by PMD Patient started on Cardizem Drip currently at 5mg/Hr ; Starting Rate lowered to 2.5mg/hr Continue Tele Cardiology Consulted, Pending Further Reccs Pulmonary Congestion: PNA vs CHF BNP 3000; CXR 12/19 worsening Bibasilar Consolidation consistent w/ CHF Cont Lasix 20 IVP Q12 ECHO Prelim EF 65% - Moderate Pulmonary Hypertension Wheezing on examination - DUONEB Q4H [facility] Sepsis: Most likely 2/2 PNA RLL Infiltrate on prior CXR; Procal elevated Afebrile x24H w/ mild leukocytosis Continue Vanc + Aztreonam + Levaquin BCX 12/17 - 2/2 Negative @ 4 Days Legionella antigen pending ID Following, appreciate reccs Hypokalemia - Unresolved from day prior Repleted w/ [id number] Mag wnl Recheck in AM Hx DM: Continues to have elevated AM fasting sugars HbA1C 11.3 Levemir increased 20 ->24 HS ISS Regular ACHS certified adaptive physical educator reconsulted Holding home meds: Januiva, Metformin, Glipizide Hx HTN Contiue Lopressor 100 BID Continue Nifedipine XL 30 Daily Hold Diovan due to previous KENN Hx CVA Cont Aggrenox Hx Depression Changed lexapro from AM to PM H/o Chronic Back Pain Cont Tramadol prn KENN - Resolved GI / DVT PPX GI not indicated at this time DVT Heparin 5000 Q18 Dispo: [facility] vs TCU once medically optimized Patient was seen, examined, and discussed w/ attending Dr. Darcy Hickman DO PGY1 - Internal Medicine Planning Feeder - Hospitalist Progress Note <Darcy Hickman R - Last Filed: 12/21/18 17:41> Objective - Vital Signs/Intake and Output Vital Signs (last 24 hours): Temp Pulse Resp BP Pulse Ox 98.4 F 703 H 19 150/74 96 12/21/18 12:00 12/21/18 15:38 12/21/18 12:00 12/21/18 15:38 12/21/18 06:00 Intake and Output: 12/21/18 12/21/18 06:59 18:59 Intake Total 1120 500 Output Total 600 Balance 520 500 - Medications Medications: Current Medications Acetaminophen (Tylenol 325mg Tab) 650 mg PO Q4H PRN PRN Reason: Fever >100.4 F Last Admin: 12/20/18 00:32 Dose: 650 mg Albuterol/Ipratropium (Duoneb 3 Mg/0.5 Mg (3 Ml) Ud) 3 ml IH Q2H PRN PRN Reason: Shortness of Breath Last Admin: 12/20/18 05:46 Dose: 3 ml Diltiazem HCl (Cardizem) 30 mg PO TID [facility] Last Admin: 12/21/18 15:38 Dose: 30 mg Dipyridamole/Aspirin (Aggrenox 25-200 Mg) 1 ea PO DAILY [facility] Last Admin: 12/21/18 10:34 Dose: 1 ea Docusate Sodium (Colace) 100 mg PO DAILY [facility] Last Admin: 12/21/18 10:34 Dose: 100 mg Escitalopram Oxalate (Lexapro) 10 mg PO QPM [facility] Furosemide (Lasix) 20 mg IVP Q12H [facility] Last Admin: 12/21/18 05:19 Dose: 20 mg Heparin Sodium (Porcine) (Heparin) 5,000 units SC Q8 [facility]; Protocol Last Admin: 12/21/18 13:13 Dose: 5,000 units Aztreonam (Azactam 1 Gm) 100 mls @ 100 mls/hr IVPB Q12H [facility]; Protocol Stop: 12/26/18 22:01 Last Admin: 12/21/18 09:43 Dose: 100 mls/hr Vancomycin HCl (Vancomycin 750 Mg In Ns) 750 mg in 250 mls @ 167 mls/hr IVPB Q12H [facility]; Protocol Stop: 12/26/18 20:16 Last Admin: 12/21/18 09:13 Dose: 167 mls/hr Insulin Detemir (Levemir) 24 unit SC HS [facility] Insulin Human Regular (Humulin R High) 0 units SC ACHS [facility]; Protocol Last Admin: 12/21/18 12:51 Dose: 4 units Ipratropium [place] (Atrovent) 0.5 mg IH [id number] PRN PRN Reason: Shortness of Breath Last Admin: 12/20/18 21:35 Dose: 0.5 mg Levalbuterol HCl (Xopenex) 0.63 mg IH [id number] PRN PRN Reason: Shortness of Breath Last Admin: 12/21/18 00:41 Dose: 0.63 mg Levofloxacin/Dextrose (Levaquin 750mg) 750 mg IVPB QOD [facility]; Protocol Last Admin: 12/21/18 12:52 Dose: 750 mg Metoprolol Tartrate (Lopressor) 100 mg PO BID [facility] Last Admin: 12/21/18 10:34 Dose: 100 mg Metronidazole (Flagyl) 500 mg PO Q8 [facility]; Protocol Stop: 12/24/18 22:01 Last Admin: 12/21/18 13:13 Dose: 500 mg Nifedipine (Procardia Xl) 30 mg PO DAILY [facility] Last Admin: 12/20/18 10:40 Dose: 30 mg Nystatin (Nystop Topical Powder) 0 gm TOP BID [facility] Last Admin: 12/21/18 10:39 Dose: 1 applic Polyethylene Glycol (Miralax) 17 gm PO DAILY [facility] Last Admin: 12/21/18 10:39 Dose: Not Given Tramadol HCl (Ultram) 50 mg PO TID PRN PRN Reason: Pain, moderate (4-7) Last Admin: 12/18/18 10:46 Dose: 50 mg - Labs Labs: 12/21/18 06:30 12/21/18 06:30 Attending/Attestation - Attestation I have personally seen and examined this patient.: Yes I have fully participated in the care of the patient.: Yes I have reviewed all pertinent clinical information, including history, physical exam and plan: Yes Notes (Text): Patient seen and examined by me with resident at approximately 10:10 AM on 12/21/18. Case including HPI, physical exam, and assessment and plan discussed with resident. Agree with above with following additions/corrections. Patient is a 72 year old female with past medical history significant for DM2, HTN, CVA, depression and chronic back pain that presented to the emergency room with fever, chills, and vomiting. Patient states she is feeling ok. She is not sure what happened last night. Patient states she is still feeling a little short of breath. Oxygen is helping. Patient states cough has improved and she is not coughing much. Patient states she had a bowel movement yesterday. Patient denies any chest pain or palpitations. No nausea or vomiting. No headaches or dizziness. No fevers or chills. No dysuria. Physical exam: General: Awake and alert lying in bed in no acute distress. HEENT: Normocephalic, atraumatic. Extraocular muscles intact, pupils equal and reactive, no scleral icterus. Oropharynx is pink and moist. No pharyngeal erythema or exudate appreciated. Neck is supple. Cardiovascular: Regular rhythm currently. Normal S1 and S2. No murmurs, rubs, or gallops appreciated Pulmonary: Normal respiratory effort. Positive coarse breath sounds and crackles heard throughout. No wheezing appreciated. Gastrointestinal: Soft, nondistended. Nontender. Positive bowel sounds all 4 quadrants. No guarding. Musculoskeletal: Moves all extremities. No calf tenderness. No edema. Central nervous system: AAOx3. CN 2-12 grossly inact Dermatologic: Skin warm and dry. Assessment and plan: Patient is a 72 year old female with past medical history significant for DM2, HTN, CVA, depression and chronic back pain that presented to the emergency room with fever, chills, and vomiting. 1. New onset atrial fibrillation with RVR. Patient started on cardizem drip. Cardiology consulted, follow up recommendations. Currently in normal sinus rhythm and rate controlled. Continue to monitor on telemetry. 2. Sepsis. ID following, recommendations appreciated. Right lower lobe pneumonia. Lactic acidosis resolved. Hypotension resolved. Fevers resolved. WBC uptrended. Pro-calcitonin elevated at 12.57. Continue Aztreonam, Flagyl, Levaquin, and Vancomycin per ID. Repeat chest xray 12/20/18 per radiologist showed increasing bibasilar infiltrates consistent with CHF. Urine culture with no growth. Blood culture with no growth. CT abd/pelvis per radiologist showed no acute abdominal or pelvic abnormality, left colonic diverticulosis without CT evidence for acute diverticulitis. 2. Elevated BNP. Shortness of breath. Continue Lasix 20mg IV q12hrs. 2D echo per merchandise executive showed the left ventricle is normal size, normal left ventricular wall thickness, left ventricular function is normal with EF 55-60%, mitral regurg is trace to mild, moderate tricuspid regurgitation, mild to moderate pulmonary hypertension, IVC is normal in size, no pericardial effusion. Continue O2 via nasal cannula as needed. Continue nebulizer treatments. 3. Acute kidney injury. Creatinine normalized. BUN elevated now likeky secondary to Lasix. Continue to monitor. 4. DM2 with hyperglycemia. Continue insulin sliding scale. Continue Levemir. Hgb A1C 11.3. Continue to monitor accuchecks. 5. Essential hypertension. Continue Metoprolol 6. CVA. Continue Aggrenox. 7. Chronic back pain. Continue Tramadol as needed. 8. Depression. Continue Lexapro 9. Constipation. Resolved. Continue Colace and miralax. 10. DVT prophylaxis. Heparin. Case discussed in detail with the patient regarding current diagnosis and treatment plan. All questions answered.
[2018-12-21] MEDS: Insulin Reg-HIGH-Coverage SC SCH ×4 (08:33→21:31)
[2018-12-21] MEDS: Vancomycin 750mg 750 MG/250 ML BAG IVPB SCH (09:13)
[2018-12-21] MEDS ORDERED: Potassium Chloride 20 mEq ER Tab PO ONE ×2 (09:20→13:55)
[2018-12-21] MEDS: Aztreonam 1 Gm in NS 100mL 100 ML IVPB SCH ×2 (09:43→21:30)
--- NOTE | 2018-12-21 10:03 | CARD ---
APPROVED REPORT Date of service: 12/21/2018 EKG Measurement Heart [id number] <Conclusion> Atrial fibrillation with rapid ventricular response Abnormal ECG
[2018-12-21] MEDS: Aspirin-Dipyridamole 200-25 mg ER Cap PO SCH (10:34)
[2018-12-21] MEDS: POLYETHYLENE GLYCOL 3350 17 GM/Dose PACKET PO SCH (10:39)
[2018-12-21] MEDS: Nystatin 100,000 Units/gm Topical Pow(15 gm) TOP SCH (10:39)
--- NOTE | 2018-12-21 11:49 | CP.PCM.PCO ---
Physician Communication Note - Physician Communication Note Physician Communication Note: new onset atrial fibrillation last pm,on Card.drip,card consult pending.
--- NOTE | 2018-12-21 18:44 | CARD ---
APPROVED REPORT Date of service: 12/21/2018 EKG Measurement Heart [id number] <Conclusion> Normal sinus rhythm Normal ECG
--- NOTE | 2018-12-21 19:09 | CP.PCM.PN ---
Subjective - Date & Time of Evaluation Date of Evaluation: 12/21/18 Time of Evaluation: 06:50 - Subjective Subjective: Lying comfortably in bed, no fevers this morning, not in distress. Objective - Vital Signs/Intake and Output Vital Signs (last 24 hours): Temp Pulse Resp BP Pulse Ox 98.4 F 103 H 19 150/74 96 12/21/18 12:00 12/21/18 18:18 12/21/18 12:00 12/21/18 18:19 12/21/18 06:00 Intake and Output: 12/21/18 12/22/18 18:59 06:59 Intake Total 500 Balance 500 - Medications Medications: Current Medications Acetaminophen (Tylenol 325mg Tab) 650 mg PO Q4H PRN PRN Reason: Fever >100.4 F Last Admin: 12/20/18 00:32 Dose: 650 mg Albuterol/Ipratropium (Duoneb 3 Mg/0.5 Mg (3 Ml) Ud) 3 ml IH Q2H PRN PRN Reason: Shortness of Breath Last Admin: 12/20/18 05:46 Dose: 3 ml Diltiazem HCl (Cardizem) 30 mg PO TID [facility] Last Admin: 12/21/18 18:18 Dose: 30 mg Dipyridamole/Aspirin (Aggrenox 25-200 Mg) 1 ea PO DAILY [facility] Last Admin: 12/21/18 10:34 Dose: 1 ea Docusate Sodium (Colace) 100 mg PO DAILY [facility] Last Admin: 12/21/18 10:34 Dose: 100 mg Escitalopram Oxalate (Lexapro) 10 mg PO QPM [facility] Last Admin: 12/21/18 18:17 Dose: 10 mg Furosemide (Lasix) 20 mg IVP Q12H [facility] Last Admin: 12/21/18 18:19 Dose: 20 mg Heparin Sodium (Porcine) (Heparin) 5,000 units SC Q8 [facility]; Protocol Last Admin: 12/21/18 13:13 Dose: 5,000 units Aztreonam (Azactam 1 Gm) 100 mls @ 100 mls/hr IVPB Q12H [facility]; Protocol Stop: 12/26/18 22:01 Last Admin: 12/21/18 09:43 Dose: 100 mls/hr Vancomycin HCl (Vancomycin 750 Mg In Ns) 750 mg in 250 mls @ 167 mls/hr IVPB Q12H [facility]; Protocol Stop: 12/26/18 20:16 Last Admin: 12/21/18 09:13 Dose: 167 mls/hr Insulin Detemir (Levemir) 24 unit SC HS [facility] Insulin Human Regular (Humulin R High) 0 units SC ACHS [facility]; Protocol Last Admin: 12/21/18 18:19 Dose: 4 units Ipratropium [place] (Atrovent) 0.5 mg IH [id number] PRN PRN Reason: Shortness of Breath Last Admin: 12/20/18 21:35 Dose: 0.5 mg Levalbuterol HCl (Xopenex) 0.63 mg IH [id number] PRN PRN Reason: Shortness of Breath Last Admin: 12/21/18 00:41 Dose: 0.63 mg Levofloxacin/Dextrose (Levaquin 750mg) 750 mg IVPB QOD [facility]; Protocol Last Admin: 12/21/18 12:52 Dose: 750 mg Metoprolol Tartrate (Lopressor) 100 mg PO BID [facility] Last Admin: 12/21/18 18:18 Dose: 100 mg Metronidazole (Flagyl) 500 mg PO Q8 [facility]; Protocol Stop: 12/24/18 22:01 Last Admin: 12/21/18 13:13 Dose: 500 mg Nifedipine (Procardia Xl) 30 mg PO DAILY [facility] Last Admin: 12/20/18 10:40 Dose: 30 mg Nystatin (Nystop Topical Powder) 0 gm TOP BID [facility] Last Admin: 12/21/18 10:39 Dose: 1 applic Polyethylene Glycol (Miralax) 17 gm PO DAILY [facility] Last Admin: 12/21/18 10:39 Dose: Not Given Tramadol HCl (Ultram) 50 mg PO TID PRN PRN Reason: Pain, moderate (4-7) Last Admin: 12/18/18 10:46 Dose: 50 mg - Labs Labs: 12/21/18 06:30 12/21/18 06:30 - Constitutional Appears: No Acute Distress - Head Exam Head Exam: NORMAL INSPECTION - Respiratory Exam Respiratory Exam: Decreased Breath Sounds - Cardiovascular Exam Cardiovascular Exam: +S1, +S2 - GI/Abdominal Exam GI & Abdominal Exam: Soft. absent: Tenderness Assessment and Plan - Assessment and Plan (Free Text) Plan: Assessment Severe sepsis with acute renal failure (slowly improving) due to left lower lobe pneumonia DM2 HTN CVA depression chronic back pain S/P right leg fracture surgery S/P cholecystectomy Plan on Vancomycin, Azactam, Levaquin day 2; patient has been afebrile for 48 hours, PCT is elevated, Urine Legionella Ag is negative blood cx are negative - will d/c Vancomycin will repeat PCT tomorrow and will monitor clinically and give further recommendations - should target total 5-7 days of antibiotics but may switch to PO antibiotics if patient continues to get clinically better
--- NOTE | 2018-12-21 19:29 | CON ---
DATE: 12/21/2018 LOCATION: Room 275, bed 1. REASON FOR CONSULTATION: Atrial fibrillation, hypertension, pneumonia, sepsis, diabetes, old CVA. HISTORY OF PRESENT ILLNESS: The patient is a 72-year-old female known to have hypertension, diabetes mellitus, CVA 21 years ago, also has history of depression, chronic back pain, was admitted through the emergency room for fever, chills, vomiting with fever of 101.4. The patient denied any chest pain, but she states she has been having cough for a long time without any expectoration. The patient denied any urinary burning or frequency. There was a question whether the patient with vomiting had aspirated and have pneumonia. The patient had elevated lactate, code sepsis was called. The patient was given IV fluid, antibiotics started. The patient is lying flat in bed without any shortness of breath. She denies chest pain, but she does complain of cough. The patient after admission to the hospital went into atrial fibrillation. She was given Cardizem bolus and Cardizem drip, and she converted back to sinus rhythm. The patient does not complain any palpitation. Denies any prior history of exertional chest pain. The patient walks with a limp and cane because of previous CVA, which has residual weakness on the right side. PAST MEDICAL HISTORY: Positive for diabetes mellitus, hypertension, CVA, this is about 21 years ago. The patient also has history of depression, chronic back pain. She had 2 C-sections, also had D&C, cholecystectomy. The patient also had surgery for fracture on the ankle and she says later on, she was found to be ALLERGIC TO THE METALLIC RODS put into the fracture of her ankle. PERSONAL HISTORY: Used to smoke one pack a day until 21 years ago. Denies taking any alcohol. ALLERGIES: THE PATIENT NOT SURE WHETHER SHE IS ALLERGIC TO PENICILLIN OR NOT. Daughter is sitting at bedside, she is also not sure. HOME MEDICATIONS 1. She was taking Lexapro 10 mg daily. 2. Aspirin and dipyridamole combination 25/200 mg one tablet daily. 3. Lopressor 100 mg b.i.d. 4. Metformin 1000 mg b.i.d. 5. Glipizide 10 mg daily. 6. Diovan 320 mg p.o. daily. 7. Januvia 100 mg p.o. daily. 8. Nifedipine ER which is Procardia 30 mg p.o. daily. 9. Ultram 50 mg p.o. t.i.d. p.r.n. for pain. REVIEW OF SYSTEMS: All the systems reviewed, positive mentioned in the history, others were negative. PHYSICAL EXAMINATION VITAL SIGNS: Blood pressure 127/69, respirations 20, pulse 92, temperature 98.4. On 12/19/2018, the patient had temperature of 102. HEENT: Head is normocephalic. Eyes, pupils normal. NECK: JVP low. Carotids equal. THORAX: AP diameter normal. LUNGS: Few scattered rales. CARDIOVASCULAR: S1 and S2. ABDOMEN: Soft. No tenderness. No organomegaly. Bowel sounds normal. EXTREMITIES: No clubbing. No cyanosis. LABORATORY DATA: WBC 13.3, hemoglobin 11.0, hematocrit 34.3, and platelets 197. Sodium 140, potassium 3.3, BUN 25, creatinine 1.1, sugar 245, total protein 6.1, troponin x2 negative. Calcium, phosphorus, magnesium, AST, ALT normal. On 12/19/2018, NT-proBNP 3050. Chest x-ray, possible infiltrates, right base. Repeat chest x-ray, questionable perihilar infiltrate versus congestion. Urine culture negative. Blood cultures negative. The patient EKG with regular sinus rhythm when the patient went into atrial fibrillation with rapid rate. Now, the patient back in sinus rhythm. Echocardiogram 12/20/2018, left ventricle normal size, normal left ventricle wall thickness, left ventricle function normal, EF 55-60%, mitral regurgitation trace to mild, moderate tricuspid regurgitation, RVSP 53 mmHg, mild to moderate pulmonary hypertension. No skin. DIAGNOSES: Atrial fibrillation which converted to sinus rhythm, hypertension, diabetes mellitus, pneumonia, sepsis, old cerebrovascular accident with residual weakness on the right side. PLAN: The patient is on aspirin one tablet daily, aztreonam IV every 12 hours. The patient is on diltiazem drip 2.5 mg per hour, which would be changed to p.o. We will discontinue the drip if the patient is in sinus rhythm, now we will put Cardizem 30 p.o. t.i.d., DuoNeb hand nebulizer therapy, metronidazole 500 mg p.o. every 8 hours, heparin 5000 units subcutaneous every 8 hours. Potassium is low, 20 mEq of potassium once has been given. The patient is on IV Lasix 20 every 12 hours, metoprolol 100 mg b.i.d., nifedipine ER Procardia XL 30 mg p.o. daily, vancomycin 750 mg IV every 12 hours. The patient received 20 mEq of potassium today, we will give another 20 mEq for today, and we will repeat SMA-7. Also, we will repeat TSH tomorrow. Once the patient's respiratory status is better, we will do an IV Lexiscan stress test. Right now, the patient is having cough that may interfere with the scan for the stress test. I had detail discussion with the family, the daughter was at bedside, explained everything and treatment, diagnosis. We will continue to follow with you. Jakob Grace MD
[2018-12-21] MEDS: Insulin Detemir 100 units/ml Vial (Levemir) SC SCH (21:30)
[2018-12-22] MEDS: Aztreonam 1 Gm in NS 100mL 100 ML IVPB SCH ×3 (06:02→22:40)
[2018-12-22 06:51] LABS: BASO # 0.06 K/mm3 (0.0-2.0); BASO % 0.5 % (0.0-3.0); EOS # 0.3 (0.0-0.7); EOS % 2.6 % (1.5-5.0); LYMPH % 8.9 % (22.0-35.0); MEAN CORPUSCULAR HEMOGLOBIN 27.3 pg (25.0-35.0); MEAN PLATELET VOLUME 8.9 fl (7.0-11.0); MONO # 1.3 (0.1-0.6); MONO % 10.6 % (1.0-6.0); RBC 4.03 10^6/uL (3.5-6.1); RED CELL DISTRIBUTION WIDTH 14.6 % (11.5-14.5); WHITE BLOOD COUNT 11.8 10^3/uL (4.5-11.0)
[2018-12-22 06:58] LABS: ALB/GLOB RATIO 0.9 (1.1-1.8); ALBUMIN 2.8 g/dL (3.0-4.8); CALCIUM 8.8 mg/dL (8.4-10.5)
[2018-12-22] MEDS: Insulin Reg-HIGH-Coverage SC SCH ×4 (08:27→22:41)
[2018-12-22 08:52] LABS: MEAN CELL VOLUME 85.3 fl (80.0-105.0)
--- NOTE | 2018-12-22 09:45 | CP.PCM.PN ---
Subjective - Date & Time of Evaluation Date of Evaluation: 12/22/18 Time of Evaluation: 06:30 - Subjective Subjective: Awake, alert, no distress Reason for consultation and follow up:Cardiac evaluation of rapid atrial fibrillation, history of Seen and examined by me and Objective - Vital Signs/Intake and Output Vital Signs (last 24 hours): Temp Pulse Resp BP Pulse Ox 98.5 F 70 20 162/72 H 94 L 12/22/18 05:25 12/22/18 05:26 12/22/18 05:25 12/22/18 05:56 12/22/18 05:25 Intake and Output: 12/22/18 12/22/18 06:59 18:59 Intake Total 440 Output Total 1300 Balance -860 - Medications Medications: Current Medications Acetaminophen (Tylenol 325mg Tab) 650 mg PO Q4H PRN PRN Reason: Fever >100.4 F Last Admin: 12/20/18 00:32 Dose: 650 mg Albuterol/Ipratropium (Duoneb 3 Mg/0.5 Mg (3 Ml) Ud) 3 ml IH Q2H PRN PRN Reason: Shortness of Breath Last Admin: 12/20/18 05:46 Dose: 3 ml Diltiazem HCl (Cardizem) 30 mg PO TID [facility] Last Admin: 12/21/18 18:18 Dose: 30 mg Dipyridamole/Aspirin (Aggrenox 25-200 Mg) 1 ea PO DAILY [facility] Last Admin: 12/21/18 10:34 Dose: 1 ea Docusate Sodium (Colace) 100 mg PO DAILY [facility] Last Admin: 12/21/18 10:34 Dose: 100 mg Escitalopram Oxalate (Lexapro) 10 mg PO QPM [facility] Last Admin: 12/21/18 18:17 Dose: 10 mg Furosemide (Lasix) 20 mg IVP Q12H [facility] Last Admin: 12/22/18 05:56 Dose: 20 mg Heparin Sodium (Porcine) (Heparin) 5,000 units SC Q8 [facility]; Protocol Last Admin: 12/22/18 05:55 Dose: 5,000 units Aztreonam (Azactam 1 Gm) 100 mls @ 100 mls/hr IVPB Q8 [facility]; Protocol Stop: 12/26/18 22:01 Last Admin: 12/22/18 06:02 Dose: 100 mls/hr Insulin Detemir (Levemir) 24 unit SC [facility] Last Admin: 12/21/18 21:30 Dose: 24 unit Insulin Human Regular (Humulin R High) 0 units SC [facility]; Protocol Last Admin: 12/22/18 08:27 Dose: 2 units Ipratropium [place] (Atrovent) 0.5 mg IH [id number] PRN PRN Reason: Shortness of Breath Last Admin: 12/20/18 21:35 Dose: 0.5 mg Levalbuterol HCl (Xopenex) 0.63 mg IH [id number] PRN PRN Reason: Shortness of Breath Last Admin: 12/21/18 00:41 Dose: 0.63 mg Levofloxacin/Dextrose (Levaquin 750mg) 750 mg IVPB QOD [facility]; Protocol Last Admin: 12/21/18 12:52 Dose: 750 mg Metoprolol Tartrate (Lopressor) 100 mg PO BID [facility] Last Admin: 12/21/18 18:18 Dose: 100 mg Nifedipine (Procardia Xl) 30 mg PO DAILY [facility] Last Admin: 12/20/18 10:40 Dose: 30 mg Nystatin (Nystop Topical Powder) 0 gm TOP BID [facility] Last Admin: 12/21/18 10:39 Dose: 1 applic Polyethylene Glycol (Miralax) 17 gm PO DAILY [facility] Last Admin: 12/21/18 10:39 Dose: Not Given Tramadol HCl (Ultram) 50 mg PO TID PRN PRN Reason: Pain, moderate (4-7) Last Admin: 12/21/18 21:29 Dose: 50 mg - Labs Labs: 12/22/18 05:45 12/22/18 05:45 - Constitutional Appears: Non-toxic, No Acute Distress - Head Exam Head Exam: NORMAL INSPECTION, NORMOCEPHALIC - Eye Exam Eye Exam: Normal appearance Pupil Exam: NORMAL ACCOMODATION - ENT Exam ENT Exam: Mucous Membranes Moist, Normal Exam - Respiratory Exam Respiratory Exam: Decreased Breath Sounds, Clear to Ausculation Bilateral, NORMAL BREATHING PATTERN - Cardiovascular Exam Cardiovascular Exam: REGULAR RHYTHM, +S1, +S2 - GI/Abdominal Exam GI & Abdominal Exam: Soft, Normal Bowel Sounds - Extremities Exam Extremities Exam: Full ROM, Normal Capillary Refill - Neurological Exam Neurological Exam: Alert, Awake, Oriented x3 - Psychiatric Exam Psychiatric exam: Normal Affect, Normal Mood - Skin Skin Exam: Dry, Normal Color, Warm Assessment and Plan - Assessment and Plan (Free Text) Assessment: A 73 year old female who came in to the ER for fever and chills. While in the hospital had rapid atrial fibrillation thus consult was called. history of hypertension, disbetes, CVA 21 years ago, depression, chronic back pain, fracture of the ankle surgery and allergic to metallic rods., x 2, dilatation and curettage. Given IV cardizem for atrial fibrillation and converted to normal sinus rhythm. Cardizem IV converted to oral. Maintained on normal sinus rhythm. Chest X ray showed infiltrates. on IV antibiotics. Echo done and showed LVEF 55-60%, Trace to mild MR,moderate Tr,RVSP 53mmHg, moderate pulmonary hypertension. Plan: No distress, denies chest pain On normal sinus rhythm, Cardizem IV switch to oral Heart rate controlled Blood pressure controlled On Cardizem 30 mg TID,Aggrenox 1 tab daily,Lasix 20 mg daily, Lopressor 100 mg BID,Procardia XL 30 mg daily Continue current treatment Continue current medications Continue IV antibiotics as ordered Out patient stress test Will follow up Plan and treatment discussed with Dr. Grace
[2018-12-22] MEDS: Aspirin-Dipyridamole 200-25 mg ER Cap PO SCH (09:52)
[2018-12-22] MEDS: POLYETHYLENE GLYCOL 3350 17 GM/Dose PACKET PO SCH (09:52)
[2018-12-22] MEDS: Nystatin 100,000 Units/gm Topical Pow(15 gm) TOP SCH ×2 (09:52→17:37)
[2018-12-22] MEDS: Albuterol-Ipratrop 3 mg / 0.5 (3 ml) UD IH PRN (10:17)
--- NOTE | 2018-12-22 11:44 | CP.PCM.PN ---
<Wilver Hickman - Last Filed: 12/22/18 13:57> Subjective - Date & Time of Evaluation Date of Evaluation: 12/22/18 Time of Evaluation: 10:00 - Subjective Subjective: Wilver Hickman DO PGY1- Internal Medicine Weighmaster - Hospitalist progress note Patient was seen and examined this morning at bedside, Overnight patient was noted to be agitated w/ auditory and visual hallucinations as per nursing Upon evaluation this morning, patient does not remember such events. Reports her coughing is improving at this time, only complains of increased urination. Denies any chest pain or palpitations. Of note, reported tele- event last night - Afib 0346 -30min w/o RVR Objective - Vital Signs/Intake and Output Vital Signs (last 24 hours): Temp Pulse Resp BP Pulse Ox 98.5 F 81 20 163/66 H 94 L 12/22/18 05:25 12/22/18 09:54 12/22/18 05:25 12/22/18 09:54 12/22/18 05:25 Intake and Output: 12/22/18 12/22/18 06:59 18:59 Intake Total 440 Output Total 1300 Balance -860 - Medications Medications: Current Medications Acetaminophen (Tylenol 325mg Tab) 650 mg PO Q4H PRN PRN Reason: Fever >100.4 F Last Admin: 12/20/18 00:32 Dose: 650 mg Albuterol/Ipratropium (Duoneb 3 Mg/0.5 Mg (3 Ml) Ud) 3 ml IH Q2H PRN PRN Reason: Shortness of Breath Last Admin: 12/22/18 10:17 Dose: 3 ml Diltiazem HCl (Cardizem) 30 mg PO TID [facility] Last Admin: 12/22/18 09:53 Dose: 30 mg Dipyridamole/Aspirin (Aggrenox 25-200 Mg) 1 ea PO DAILY [facility] Last Admin: 12/22/18 09:52 Dose: 1 ea Docusate Sodium (Colace) 100 mg PO DAILY [facility] Last Admin: 12/22/18 09:52 Dose: 100 mg Escitalopram Oxalate (Lexapro) 10 mg PO QPM [facility] Last Admin: 12/21/18 18:17 Dose: 10 mg Furosemide (Lasix) 20 mg IVP Q12H [facility] Last Admin: 12/22/18 05:56 Dose: 20 mg Heparin Sodium (Porcine) (Heparin) 5,000 units SC Q8 [facility]; Protocol Last Admin: 12/22/18 05:55 Dose: 5,000 units Hydralazine HCl (Apresoline) 10 mg IVP Q6 PRN PRN Reason: SBP above 160 Aztreonam (Azactam 1 Gm) 100 mls @ 100 mls/hr IVPB Q8 [facility]; Protocol Stop: 12/26/18 22:01 Last Admin: 12/22/18 06:02 Dose: 100 mls/hr Insulin Detemir (Levemir) 24 unit SC HS [facility] Last Admin: 12/21/18 21:30 Dose: 24 unit Insulin Human Regular (Humulin R High) 0 units SC ACHS [facility]; Protocol Last Admin: 12/22/18 08:27 Dose: 2 units Ipratropium [place] (Atrovent) 0.5 mg IH [id number] PRN PRN Reason: Shortness of Breath Last Admin: 12/20/18 21:35 Dose: 0.5 mg Levalbuterol HCl (Xopenex) 0.63 mg IH [id number] PRN PRN Reason: Shortness of Breath Last Admin: 12/21/18 00:41 Dose: 0.63 mg Levofloxacin/Dextrose (Levaquin 750mg) 750 mg IVPB QOD [facility]; Protocol Last Admin: 12/21/18 12:52 Dose: 750 mg Metoprolol Tartrate (Lopressor) 100 mg PO BID [facility] Last Admin: 12/22/18 09:54 Dose: 100 mg Nifedipine (Procardia Xl) 30 mg PO DAILY [facility] Last Admin: 12/20/18 10:40 Dose: 30 mg Nystatin (Nystop Topical Powder) 0 gm TOP BID [facility] Last Admin: 12/22/18 09:52 Dose: 1 applic Polyethylene Glycol (Miralax) 17 gm PO DAILY [facility] Last Admin: 12/22/18 09:52 Dose: 17 gm Tramadol HCl (Ultram) 50 mg PO TID PRN PRN Reason: Pain, moderate (4-7) Last Admin: 12/21/18 21:29 Dose: 50 mg - Labs Labs: 12/22/18 05:45 12/22/18 05:45 - Constitutional Appears: Well, Non-toxic, No Acute Distress - Head Exam Head Exam: ATRAUMATIC, NORMOCEPHALIC - Eye Exam Eye Exam: EOMI, PERRL - ENT Exam ENT Exam: Mucous Membranes Moist - Respiratory Exam Respiratory Exam: Wheezing significantly improved; continues to have crackles - Cardiovascular Exam Cardiovascular Exam: REGULAR RHYTHM, RRR, +S1, +S2. absent: Murmur - GI/Abdominal Exam GI & Abdominal Exam: Distended (tympanic), Soft. absent: Tenderness - Extremities Exam Extremities Exam: Normal Capillary Refill, Normal Inspection. absent: Pedal Edema Additional comments: Distal Pulses 2+ LE BL - Neurological Exam Neurological Exam: Alert, Awake, CN II-XII Intact, At baseline as per daughter - Psychiatric Exam Psychiatric exam: Normal Affect, Normal Mood - Skin Skin Exam: Dry, Intact, Normal Color, Warm Assessment and Plan - Assessment and Plan (Free Text) Assessment: 73F w/ PMH HTN, DM, CVA (21yr ago), Depression, Chronic back pain, presented to [facility] [place] on 12/17 w/ complaints of fever, chill, vomiting. Noted to be septic on presentation w/ elevated lactate, hypotension, tachycardia. Noted to be septic most likely 2/2 PNA, Currently on IV ABX. Patient developed new onset Afib w/ RVR during hospitalization. PLAN: New Onset Atrial Fibrillation w/ RVR 12/21 EKG - Afib w/ RVR confirmed Patient had episodes of Afib last night and throughout the day today Resume Cardizem drip as per cardiology [facility]AS 6 Start Eliquis as per cardiology Continue Tele Cardiology Following, Appreciate Reccs Pulmonary Congestion: PNA vs CHF BNP 3000; 12/19 CXR worsening Bibasilar Consolidation consistent w/ CHF Cont Lasix 20 IVP Q12 ECHO Prelim EF 65% - Moderate Pulmonary Hypertension Duonebs PRN wheezing Sepsis: Most likely 2/2 PNA 12/18 CXR - RLL Infiltrate on prior CXR; Procal elevated Afebrile - Unchanged Leukocytosis Vanc DC'd as per ID C/w Azactam + Levaquin x 5-7 total days as per ID BCX 12/17 - 2/ Negative after 5 days Legionella antigen negative ID Following, appreciate reccs Nightly Agitation/ Confusion: CT Head pending Psych Consulted, Appreciate reccs Hx DM: AM fasting Sugars significantly improved; Polyuria HbA1C 11.3 Levemir 24HS ISS Regular ACHS community health educator saw patient yesterday Holding home meds: Januiva, Metformin, Glipizide Hx HTN Hydralazine 10mg IVP Q6 PRN Contiue Lopressor 100 BID Continue Nifedipine XL 30 Daily Hold Diovan due to previous KENN Hx CVA Cont Aggrenox Hx Depression Home Lexapro QPM H/o Chronic Back Pain Cont Tramadol prn GI / DVT PPX GI not indicated at this time DVT Heparin 5000 Q18 Dispo: [facility] vs TCU once medically optimized Patient was seen, examined, and discussed w/ attending Dr. Darcy Hickman DO PGY1 - Internal Medicine Weighmaster - Hospitalist Progress Note <Darcy Hickman R - Last Filed: 12/22/18 18:56> Objective - Vital Signs/Intake and Output Vital Signs (last 24 hours): Temp Pulse Resp BP Pulse Ox 98.1 F 69 20 155/76 H 94 L 12/22/18 17:57 12/22/18 18:00 12/22/18 17:57 12/22/18 17:57 12/22/18 05:25 Intake and Output: 12/22/18 12/22/18 06:59 18:59 Intake Total 440 Output Total 1300 Balance -860 - Medications Medications: Current Medications Acetaminophen (Tylenol 325mg Tab) 650 mg PO Q4H PRN PRN Reason: Fever >100.4 F Last Admin: 12/20/18 00:32 Dose: 650 mg Albuterol/Ipratropium (Duoneb 3 Mg/0.5 Mg (3 Ml) Ud) 3 ml IH Q2H PRN PRN Reason: Shortness of Breath Last Admin: 12/22/18 10:17 Dose: 3 ml Apixaban (Eliquis) 5 mg PO BID [facility]; Protocol Last Admin: 12/22/18 17:33 Dose: 5 mg Dipyridamole/Aspirin (Aggrenox 25-200 Mg) 1 ea PO DAILY [facility] Last Admin: 12/22/18 09:52 Dose: 1 ea Docusate Sodium (Colace) 100 mg PO DAILY [facility] Last Admin: 12/22/18 09:52 Dose: 100 mg Escitalopram Oxalate (Lexapro) 10 mg PO QPM [facility] Last Admin: 12/22/18 17:35 Dose: 10 mg Furosemide (Lasix) 20 mg IVP Q12H [facility] Last Admin: 12/22/18 17:35 Dose: 20 mg Heparin Sodium (Porcine) (Heparin) 5,000 units SC Q8 [facility]; Protocol Last Admin: 12/22/18 14:25 Dose: 5,000 units Hydralazine HCl (Apresoline) 10 mg IVP Q6 PRN PRN Reason: SBP above 160 Aztreonam (Azactam 1 Gm) 100 mls @ 100 mls/hr IVPB Q8 [facility]; Protocol Stop: 12/26/18 22:01 Last Admin: 12/22/18 14:10 Dose: 100 mls/hr diltiaZEM IVPB 100mg in NS (Cardizem 100mg In Ns) 100 mls @ 5 mls/hr IV .Q20H [facility] Last Admin: 12/22/18 14:26 Dose: 5 mls/hr Insulin Detemir (Levemir) 24 unit SC HS [facility] Last Admin: 12/21/18 21:30 Dose: 24 unit Insulin Human Regular (Humulin R High) 0 units SC ACHS [facility]; Protocol Last Admin: 12/22/18 17:33 Dose: 7 units Ipratropium [place] (Atrovent) 0.5 mg IH [id number] PRN PRN Reason: Shortness of Breath Last Admin: 12/20/18 21:35 Dose: 0.5 mg Levalbuterol HCl (Xopenex) 0.63 mg IH [id number] PRN PRN Reason: Shortness of Breath Last Admin: 12/21/18 00:41 Dose: 0.63 mg Levofloxacin/Dextrose (Levaquin 750mg) 750 mg IVPB QOD [facility]; Protocol Last Admin: 12/21/18 12:52 Dose: 750 mg Metoprolol Tartrate (Lopressor) 100 mg PO BID [facility] Last Admin: 12/22/18 17:35 Dose: 100 mg Nifedipine (Procardia Xl) 30 mg PO DAILY [facility] Last Admin: 12/20/18 10:40 Dose: 30 mg Nystatin (Nystop Topical Powder) 0 gm TOP BID [facility] Last Admin: 12/22/18 17:37 Dose: 1 applic Polyethylene Glycol (Miralax) 17 gm PO DAILY [facility] Last Admin: 12/22/18 09:52 Dose: 17 gm Tramadol HCl (Ultram) 50 mg PO TID PRN PRN Reason: Pain, moderate (4-7) Last Admin: 12/21/18 21:29 Dose: 50 mg - Labs Labs: 12/22/18 05:45 12/22/18 05:45 Attending/Attestation - Attestation I have personally seen and examined this patient.: Yes I have fully participated in the care of the patient.: Yes I have reviewed all pertinent clinical information, including history, physical exam and plan: Yes Notes (Text): Patient seen and examined by me with resident at approximately 10AM on 12/22/18. Case including HPI, physical exam, and assessment and plan discussed with resident. Agree with above with following additions/corrections. Patient is a 72 year old female with past medical history significant for DM2, HTN, CVA, depression and chronic back pain that presented to the emergency room with fever, chills, and vomiting. Patient states she feels ok. States she is feeling a little better. Shortness of breath improved. Cough improved. Patient denies any chest pain or palpitations. No nausea or vomiting. No headaches or dizziness. No fevers or chills. No dysuria. Physical exam: General: Awake and alert lying in bed in no acute distress. HEENT: Normocephalic, atraumatic. Extraocular muscles intact, pupils equal and reactive, no scleral icterus. Oropharynx is pink and moist. No pharyngeal erythema or exudate appreciated. Neck is supple. Cardiovascular: Regular rhythm currently. Normal S1 and S2. No murmurs, rubs, or gallops appreciated Pulmonary: Normal respiratory effort. Improved coarse breath sounds and crackles heard throughout. No wheezing appreciated. Gastrointestinal: Soft, nondistended. Nontender. Positive bowel sounds all 4 quadrants. No guarding. Musculoskeletal: Moves all extremities. No calf tenderness. No edema. Central nervous system: AAOx3. Dermatologic: Skin warm and dry. Assessment and plan: Patient is a 72 year old female with past medical history significant for DM2, HTN, CVA, depression and chronic back pain that presented to the emergency room with fever, chills, and vomiting. 1. New onset atrial fibrillation with RVR. Restarted on cardizem drip by job coach. Also started on Eliquis. Cardiology recommendations appreciated. Will restart on PO cardizem when tolerated. Continue metoprolol. Continue to m onitor on telemetry. 2. Sepsis. ID following, recommendations appreciated. Right lower lobe pneumoni a. Lactic acidosis resolved. Hypotension resolved. Fevers resolved. WBC downtrending. Pro-calcitonin improved to 2.69. Continue Aztreonam and Levaquin per ID. Repeat chest xray 12/20/18 per radiologist showed increasing bibasilar infiltrates consistent with CHF. Urine culture with no growth. Blood culture with no growth. CT abd/pelvis per radiologist showed no acute abdominal or pelvic abnormality, left colonic diverticulosis without CT evidence for acute diverticulitis. 2. Elevated BNP. Shortness of breath. Continue Lasix 20mg IV q12hrs. 2D echo per job coach showed the left ventricle is normal size, normal left ventricular wall thickness, left ventricular function is normal with EF 55-60%, mitral regurg is trace to mild, moderate tricuspid regurgitation, mild to moderate pulmonary hypertension, IVC is normal in size, no pericardial effusion. Continue O2 via nasal cannula as needed. Continue nebulizer treatments. 3. Acute kidney injury. Creatinine normalized. BUN elevated now likeky secondary to Lasix. Continue to monitor. 4. DM2 with hyperglycemia. Continue insulin sliding scale. Continue Levemir. Hgb A1C 11.3. Continue to monitor accuchecks. 5. Essential hypertension. Continue Metoprolol 6. CVA. Continue Aggrenox. 7. Chronic back pain. Continue Tramadol as needed. 8. Depression. Continue Lexapro 9. Constipation. Resolved. Continue Colace and miralax. 10. Agitation. Happens overnight. Head CT per radiologist showed no intracranial mass, hemorrhage, or evidence of acute infarct; mild age-appropriate atrophy and mild to moderate chronic white matter ischemic change. Psychiatrist consulted, follow-up recommendations. 11. DVT prophylaxis. Steffiquis Case discussed in detail with the patient regarding current diagnosis and treatment plan. All questions answered.
[2018-12-22] MEDS: diltiaZEM IVPB 100mg in NS 100 ML IV SCH (14:26)
--- NOTE | 2018-12-22 16:15 | CT ---
Date of service: 12/22/2018 PROCEDURE: CT HEAD WITHOUT CONTRAST. HISTORY: AMS COMPARISON: Not available TECHNIQUE: Axial computed tomography images were obtained through the head/brain without intravenous contrast. Radiation dose: Total exam DLP = 955.76 mGy-cm. This CT exam was performed using one or more of the following dose reduction techniques: Automated exposure control, adjustment of the mA and/or kV according to patient size, and/or use of iterative reconstruction technique. FINDINGS: HEMORRHAGE: No intracranial hemorrhage. BRAIN: No mass effect or edema. Mild age-appropriate diffuse atrophy. Mild to moderate periventricular white matter lucency with patchy deep white matter lucency consistent with microvascular white matter ischemic change. Old lacunar infarct posterior limb left internal capsule. No evidence of acute infarct. VENTRICLES: Unremarkable. No hydrocephalus. CALVARIUM: Unremarkable. PARANASAL SINUSES: Unremarkable as visualized. No significant inflammatory changes. MASTOID AIR CELLS: Unremarkable as visualized. No inflammatory changes. OTHER FINDINGS: None. IMPRESSION: No intracranial mass, hemorrhage or evidence of acute infarct. Mild age-appropriate atrophy and mild to moderate chronic white matter ischemic change.
--- NOTE | 2018-12-22 20:07 | CP.PCM.PN ---
Subjective - Date & Time of Evaluation Date of Evaluation: 12/22/18 Time of Evaluation: 06:40 - Subjective Subjective: Comfortable, not short of breath at rest, no fevers, not in distress. Objective - Vital Signs/Intake and Output Vital Signs (last 24 hours): Temp Pulse Resp BP Pulse Ox 97.5 F L 80 19 162/76 H 96 12/21/18 18:58 12/21/18 18:58 12/21/18 18:58 12/21/18 18:58 12/21/18 06:00 Intake and Output: 12/21/18 12/22/18 18:59 06:59 Intake Total 500 Balance 500 - Medications Medications: Current Medications Acetaminophen (Tylenol 325mg Tab) 650 mg PO Q4H PRN PRN Reason: Fever >100.4 F Last Admin: 12/20/18 00:32 Dose: 650 mg Albuterol/Ipratropium (Duoneb 3 Mg/0.5 Mg (3 Ml) Ud) 3 ml IH Q2H PRN PRN Reason: Shortness of Breath Last Admin: 12/20/18 05:46 Dose: 3 ml Diltiazem HCl (Cardizem) 30 mg PO TID [facility] Last Admin: 12/21/18 18:18 Dose: 30 mg Dipyridamole/Aspirin (Aggrenox 25-200 Mg) 1 ea PO DAILY [facility] Last Admin: 12/21/18 10:34 Dose: 1 ea Docusate Sodium (Colace) 100 mg PO DAILY [facility] Last Admin: 12/21/18 10:34 Dose: 100 mg Escitalopram Oxalate (Lexapro) 10 mg PO QPM [facility] Last Admin: 12/21/18 18:17 Dose: 10 mg Furosemide (Lasix) 20 mg IVP Q12H [facility] Last Admin: 12/21/18 18:19 Dose: 20 mg Heparin Sodium (Porcine) (Heparin) 5,000 units SC Q8 [facility]; Protocol Last Admin: 12/21/18 13:13 Dose: 5,000 units Aztreonam (Azactam 1 Gm) 100 mls @ 100 mls/hr IVPB Q8 [facility]; Protocol Stop: 12/26/18 22:01 Insulin Detemir (Levemir) 24 unit SC HS [facility] Insulin Human Regular (Humulin R High) 0 units SC ACHS [facility]; Protocol Last Admin: 12/21/18 18:19 Dose: 4 units Ipratropium [place] (Atrovent) 0.5 mg IH [id number] PRN PRN Reason: Shortness of Breath Last Admin: 12/20/18 21:35 Dose: 0.5 mg Levalbuterol HCl (Xopenex) 0.63 mg IH [id number] PRN PRN Reason: Shortness of Breath Last Admin: 12/21/18 00:41 Dose: 0.63 mg Levofloxacin/Dextrose (Levaquin 750mg) 750 mg IVPB QOD [facility]; Protocol Last Admin: 12/21/18 12:52 Dose: 750 mg Metoprolol Tartrate (Lopressor) 100 mg PO BID [facility] Last Admin: 12/21/18 18:18 Dose: 100 mg Metronidazole (Flagyl) 500 mg PO Q8 [facility]; Protocol Stop: 12/24/18 22:01 Last Admin: 12/21/18 13:13 Dose: 500 mg Nifedipine (Procardia Xl) 30 mg PO DAILY [facility] Last Admin: 12/20/18 10:40 Dose: 30 mg Nystatin (Nystop Topical Powder) 0 gm TOP BID [facility] Last Admin: 12/21/18 10:39 Dose: 1 applic Polyethylene Glycol (Miralax) 17 gm PO DAILY [facility] Last Admin: 12/21/18 10:39 Dose: Not Given Tramadol HCl (Ultram) 50 mg PO TID PRN PRN Reason: Pain, moderate (4-7) Last Admin: 12/18/18 10:46 Dose: 50 mg - Labs Labs: 12/21/18 06:30 12/21/18 06:30 - Constitutional Appears: Non-toxic, Chronically Ill - Head Exam Head Exam: NORMAL INSPECTION - Respiratory Exam Respiratory Exam: Decreased Breath Sounds - Cardiovascular Exam Cardiovascular Exam: +S1, +S2 - GI/Abdominal Exam GI & Abdominal Exam: Soft. absent: Tenderness Assessment and Plan - Assessment and Plan (Free Text) Plan: Assessment Severe sepsis with acute renal failure (slowly improving) due to left lower lobe pneumonia DM2 HTN CVA depression chronic back pain S/P right leg fracture surgery S/P cholecystectomy Plan on Azactam, Levaquin day 3; patient has been afebrile for 48 hours, PCT is elevated, Urine Legionella Ag is negative blood cx are negative repeat PCT is down to 2.69 will continue to monitor clinically - should target total 5-7 days of antibiotics but may switch to PO antibiotics if patient continues to get clinically better
[2018-12-22] MEDS: Insulin Detemir 100 units/ml Vial (Levemir) SC SCH (22:41)
--- NOTE | 2018-12-23 05:59 | CP.PCM.PN ---
Subjective - Date & Time of Evaluation Date of Evaluation: 12/23/18 Time of Evaluation: 06:30 - Subjective Subjective: Awake, alert, no distress Reason for consultation and follow up: Cardiac evaluation of rapid atrial fibrillation, history of hypertension, diabetes, CVA 21 years ago, Seen and examined by me and Dr. Grace Objective - Vital Signs/Intake and Output Vital Signs (last 24 hours): Temp Pulse Resp BP Pulse Ox 98.1 F 64 20 151/79 H 94 L 12/23/18 00:01 12/23/18 02:00 12/23/18 04:00 12/23/18 00:01 12/22/18 05:25 Intake and Output: 12/22/18 12/23/18 18:59 06:59 Intake Total 961 Output Total 750 Balance 211 - Medications Medications: Current Medications Acetaminophen (Tylenol 325mg Tab) 650 mg PO Q4H PRN PRN Reason: Fever >100.4 F Last Admin: 12/20/18 00:32 Dose: 650 mg Albuterol/Ipratropium (Duoneb 3 Mg/0.5 Mg (3 Ml) Ud) 3 ml IH Q2H PRN PRN Reason: Shortness of Breath Last Admin: 12/22/18 10:17 Dose: 3 ml Apixaban (Eliquis) 5 mg PO BID [facility]; Protocol Last Admin: 12/22/18 17:33 Dose: 5 mg Dipyridamole/Aspirin (Aggrenox 25-200 Mg) 1 ea PO DAILY [facility] Last Admin: 12/22/18 09:52 Dose: 1 ea Docusate Sodium (Colace) 100 mg PO DAILY [facility] Last Admin: 12/22/18 09:52 Dose: 100 mg Escitalopram Oxalate (Lexapro) 10 mg PO QPM [facility] Last Admin: 12/22/18 17:35 Dose: 10 mg Furosemide (Lasix) 20 mg IVP Q12H KIESHA Last Admin: 12/22/18 17:35 Dose: 20 mg Heparin Sodium (Porcine) (Heparin) 5,000 units SC Q8 [facility]; Protocol Last Admin: 12/22/18 22:42 Dose: 5,000 units Hydralazine HCl (Apresoline) 10 mg IVP Q6 PRN PRN Reason: SBP above 160 Aztreonam (Azactam 1 Gm) 100 mls @ 100 mls/hr IVPB Q8 [facility]; Protocol Stop: 12/26/18 22:01 Last Admin: 12/22/18 22:40 Dose: 100 mls/hr diltiaZEM IVPB 100mg in NS (Cardizem 100mg In Ns) 100 mls @ 5 mls/hr IV .Q20H [facility] Last Admin: 12/22/18 14:26 Dose: 5 mls/hr Insulin Detemir (Levemir) 24 unit SC HS [facility] Last Admin: 12/22/18 22:41 Dose: 24 unit Insulin Human Regular (Humulin R High) 0 units SC ACHS [facility]; Protocol Last Admin: 12/22/18 22:41 Dose: Not Given Ipratropium [place] (Atrovent) 0.5 mg IH [id number] PRN PRN Reason: Shortness of Breath Last Admin: 12/20/18 21:35 Dose: 0.5 mg Levalbuterol HCl (Xopenex) 0.63 mg IH [id number] PRN PRN Reason: Shortness of Breath Last Admin: 12/21/18 00:41 Dose: 0.63 mg Levofloxacin/Dextrose (Levaquin 750mg) 750 mg IVPB QOD [facility]; Protocol Last Admin: 12/21/18 12:52 Dose: 750 mg Metoprolol Tartrate (Lopressor) 100 mg PO BID [facility] Last Admin: 12/22/18 17:35 Dose: 100 mg Nifedipine (Procardia Xl) 30 mg PO DAILY [facility] Last Admin: 12/20/18 10:40 Dose: 30 mg Nystatin (Nystop Topical Powder) 0 gm TOP BID [facility] Last Admin: 12/22/18 17:37 Dose: 1 applic Polyethylene Glycol (Miralax) 17 gm PO DAILY [facility] Last Admin: 12/22/18 09:52 Dose: 17 gm Tramadol HCl (Ultram) 50 mg PO TID PRN PRN Reason: Pain, moderate (4-7) Last Admin: 12/21/18 21:29 Dose: 50 mg - Labs Labs: 12/22/18 05:45 12/22/18 05:45 - Constitutional Appears: Non-toxic, No Acute Distress - Head Exam Head Exam: NORMAL INSPECTION, NORMOCEPHALIC - Eye Exam Eye Exam: Normal appearance Pupil Exam: NORMAL ACCOMODATION - ENT Exam ENT Exam: Mucous Membranes Moist, Normal Exam - Respiratory Exam Respiratory Exam: Decreased Breath Sounds, Clear to Ausculation Bilateral, NORMAL BREATHING PATTERN - Cardiovascular Exam Cardiovascular Exam: REGULAR RHYTHM, +S1, +S2 - GI/Abdominal Exam GI & Abdominal Exam: Soft, Normal Bowel Sounds - Extremities Exam Extremities Exam: Full ROM, Normal Capillary Refill - Neurological Exam Neurological Exam: Alert, Awake, Oriented x3 - Psychiatric Exam Psychiatric exam: Normal Affect, Normal Mood - Skin Skin Exam: Dry, Normal Color, Warm Assessment and Plan - Assessment and Plan (Free Text) Assessment: A 73 year old female who came in to the ER for fever and chills. While in the hospital had rapid atrial fibrillation thus consult was called. history of hypertension, diabetes, CVA 21 years ago, depression, chronic back pain, fracture of the ankle surgery and allergic to metallic rods., x 2, dilatation and curettage. Chest X ray showed infiltrates. on IV antibiotics. Echo done and showed LVEF 55-60%, Trace to mild MR,moderate Tr,RVSP 53mmHg, moderate pulmonary hypertension. Converted back to atrial fibrillation yesterday. Cardizem drip restarted to 5mg/hr. Overnight patient was on NSR 60- 70's. Will switched to oral Cardizem. started on Eliquis Plan: Went back to Atrial fibrillation yesterday and put back to Cardizem drip Normal sinus rhythm overnight, will discontinue cardizem drip after first oral dose of Cardizem No distress, denies chest pain On normal sinus rhythm, Heart rate controlled Blood pressure controlled On Cardizem 60 mg TID,Aggrenox 1 tab daily,Lasix 20 mg daily, Lopressor 100 mg BID, Procardia XL 30 mg daily. Eliquis 5 mg BID Continue current treatment Continue current medications Continue IV antibiotics as ordered Out patient stress test Will follow up Plan and treatment discussed with Dr. Grace
[2018-12-23] MEDS: Aztreonam 1 Gm in NS 100mL 100 ML IVPB SCH (06:42)
[2018-12-23 06:56] LABS: BASO # 0.11 K/mm3 (0.0-2.0); BASO % 1.2 % (0.0-3.0); EOS # 0.4 (0.0-0.7); EOS % 3.9 % (1.5-5.0); HEMOGLOBIN 10.7 g/dL (12.0-16.0); LYMPH # 1.2 (1.2-3.4); LYMPH % 13.7 % (22.0-35.0); MEAN CELL VOLUME 86.6 fl (80.0-105.0); MEAN CORPUSCULAR HEMOGLOBIN 26.5 pg (25.0-35.0); MEAN CORPUSCULAR HGB CONC 30.6 g/dl (31.0-37.0); MEAN PLATELET VOLUME 9.2 fl (7.0-11.0); MONO # 0.8 (0.1-0.6); MONO % 9.2 % (1.0-6.0); RBC 4.04 10^6/uL (3.5-6.1); RED CELL DISTRIBUTION WIDTH 14.8 % (11.5-14.5); WHITE BLOOD COUNT 8.9 10^3/uL (4.5-11.0)
[2018-12-23 07:14] LABS: ALB/GLOB RATIO 0.8 (1.1-1.8); ALBUMIN 2.6 g/dL (3.0-4.8); CALCIUM 8.7 mg/dL (8.4-10.5)
[2018-12-23] MEDS: Insulin Reg-HIGH-Coverage SC SCH ×4 (08:26→22:22)
[2018-12-23] MEDS: Aspirin-Dipyridamole 200-25 mg ER Cap PO SCH (10:01)
[2018-12-23] MEDS: diltiaZEM IVPB 100mg in NS 100 ML IV SCH (10:02)
[2018-12-23] MEDS: levoFLOXacin 500 MG TAB PO SCH (10:02)
[2018-12-23] MEDS: Nystatin 100,000 Units/gm Topical Pow(15 gm) TOP SCH ×2 (10:03→18:11)
[2018-12-23] MEDS: POLYETHYLENE GLYCOL 3350 17 GM/Dose PACKET PO SCH (10:03)
--- NOTE | 2018-12-23 10:40 | PN ---
DATE: 12/23/2018 SUBJECTIVE: The patient is in bed in no acute distress. Seen earlier today. No fevers and no chills. Overall much improved. PHYSICAL EXAMINATION: VITAL SIGNS: Temperature is 98, blood pressure is 110/70, respiratory rate of 16. HEENT: Unremarkable. NECK: Supple. LUNGS: Have decreased breath sounds. HEART: Normal S1 and S2. ABDOMEN: Soft. LABORATORY DATA: Reveals a white count of 8.9, hemoglobin of 10. BUN of 28, creatinine of 1.2. Urinalysis is noted. The urine Legionella antigen is negative. Microbiology is noted and blood cultures are negative. ASSESSMENT AND PLAN: This is a 72-year-old female seen earlier today in [facility], bed one, appears to be much improved, admitted with severe sepsis with acute renal failure secondary to left lower lobe community-acquired pneumonia in a patient with diabetes, hypertension, cerebrovascular accident, depression, chronic back pain status post right leg fracture and status post cholecystectomy and section by history, day #4 of Levaquin. We will discontinue the aztreonam. The patient's procalcitonin appears to be improving. We will also change the Levaquin to p.o. We will follow with you. Brijesh Shay MD
[2018-12-23] MEDS: Insulin Lispro 1 UNITS/0.01 ML SC SCH ×2 (12:39→17:40)
--- NOTE | 2018-12-23 13:25 | CP.PCM.PCO ---
Physician Communication Note - Physician Communication Note Physician Communication Note: PT rec [facility], pt. seen in bed,denied shortness,was stoppped this pm,
--- NOTE | 2018-12-23 16:45 | CP.PCM.PN ---
<Wilver Hickman - Last Filed: 12/23/18 16:36> Subjective - Date & Time of Evaluation Date of Evaluation: 12/23/18 Time of Evaluation: 16:36 - Subjective Subjective: Wilver Hickman DO PGY1 - Internal Medicine Human Resources Specialist - Hospitalist Progress Note Patient was seen and examined this morning at bedside; No acute events reported overnight; Patient continues to exhibit mild confusion at night as per nursing Patient was seen and examined at bedside this morning; Patient reports her cough has significantly improved; Denies chest pain, sob, abd pain, n/v Patient had BM today. Patient voicing complaints of Left foot pain. Objective - Vital Signs/Intake and Output Vital Signs (last 24 hours): Temp Pulse Resp BP Pulse Ox 97.9 F 68 18 130/69 94 L 12/23/18 12:00 12/23/18 14:51 12/23/18 12:00 12/23/18 14:51 12/22/18 05:25 Intake and Output: 12/23/18 12/23/18 06:59 18:59 Intake Total 1461 Output Total 1250 Balance 211 - Medications Medications: Current Medications Acetaminophen (Tylenol 325mg Tab) 650 mg PO Q4H PRN PRN Reason: Fever >100.4 F Last Admin: 12/20/18 00:32 Dose: 650 mg Apixaban (Eliquis) 5 mg PO BID [facility]; Protocol Last Admin: 12/23/18 10:02 Dose: 5 mg Diltiazem HCl (Cardizem) 60 mg PO TID [facility] Last Admin: 12/23/18 14:51 Dose: 60 mg Dipyridamole/Aspirin (Aggrenox 25-200 Mg) 1 ea PO DAILY [facility] Last Admin: 12/23/18 10:01 Dose: 1 ea Docusate Sodium (Colace) 100 mg PO DAILY [facility] Last Admin: 12/23/18 10:02 Dose: 100 mg Escitalopram Oxalate (Lexapro) 10 mg PO QPM [facility] Last Admin: 12/22/18 17:35 Dose: 10 mg Furosemide (Lasix) 20 mg IVP Q12H [facility] Last Admin: 12/23/18 06:41 Dose: 20 mg Hydralazine HCl (Apresoline) 10 mg IVP Q6 PRN PRN Reason: SBP above 160 Insulin Detemir (Levemir) 24 unit SC HS [facility] Last Admin: 12/22/18 22:41 Dose: 24 unit Insulin Human Lispro (Humalog) 4 units SC AC [facility] Last Admin: 12/23/18 12:39 Dose: 4 unit Insulin Human Regular (Humulin R High) 0 units SC ACHS [facility]; Protocol Last Admin: 12/23/18 12:39 Dose: 10 units Ipratropium [place] (Atrovent) 0.5 mg IH [id number] PRN PRN Reason: Shortness of Breath Last Admin: 12/20/18 21:35 Dose: 0.5 mg Levalbuterol HCl (Xopenex) 0.63 mg IH [id number] PRN PRN Reason: Shortness of Breath Last Admin: 12/21/18 00:41 Dose: 0.63 mg Levofloxacin (Levaquin) 500 mg PO DAILY [facility]; Protocol Stop: 12/28/18 10:01 Last Admin: 12/23/18 10:02 Dose: 500 mg Metoprolol Tartrate (Lopressor) 100 mg PO BID [facility] Last Admin: 12/23/18 10:03 Dose: 100 mg Nifedipine (Procardia Xl) 30 mg PO DAILY [facility] Last Admin: 12/20/18 10:40 Dose: 30 mg Nystatin (Nystop Topical Powder) 0 gm TOP BID [facility] Last Admin: 12/23/18 10:03 Dose: 1 applic Polyethylene Glycol (Miralax) 17 gm PO DAILY [facility] Last Admin: 12/23/18 10:03 Dose: 17 gm Quetiapine Fumarate (Seroquel) 12.5 mg PO HS PRN; Protocol PRN Reason: Agitation Tramadol HCl (Ultram) 50 mg PO TID PRN PRN Reason: Pain, moderate (4-7) Last Admin: 12/21/18 21:29 Dose: 50 mg - Labs Labs: 12/23/18 06:20 12/23/18 06:20 - Constitutional Appears: Well, Non-toxic, No Acute Distress - Head Exam Head Exam: ATRAUMATIC, NORMOCEPHALIC - Eye Exam Eye Exam: EOMI, PERRL - ENT Exam ENT Exam: Mucous Membranes Moist - Respiratory Exam Respiratory Exam: No wheezes; LLL crackles - Cardiovascular Exam Cardiovascular Exam: REGULAR RHYTHM, RRR, +S1, +S2. absent: Murmur - GI/Abdominal Exam GI & Abdominal Exam: Distended (tympanic), Soft. absent: Tenderness - Extremities Exam Extremities Exam: Normal Capillary Refill, Normal Inspection. absent: Pedal Edema Additional comments: Distal Pulses 2+ LE BL - Neurological Exam Neurological Exam: Alert, Awake, CN II-XII Intact, At baseline as per daughter - Psychiatric Exam Psychiatric exam: Normal Affect, Normal Mood - Skin Skin Exam: Dry, Intact, Normal Color, Warm Assessment and Plan - Assessment and Plan (Free Text) Assessment: 73F w/ PMH HTN, DM, CVA (21yr ago), Depression, Chronic back pain, presented to [facility] on 12/17 w/ complaints of fever, chill, vomiting. Noted to be septic on presentation w/ elevated lactate, hypotension, tachycardia. Noted to be septic most likely 2/2 PNA, Currently on IV ABX. Patient developed new onset Afib w/ RVR during hospitalization. PLAN: New Onset Atrial Fibrillation w/ RVR 12/21 EKG - Afib w/ RVR confirmed 12/22 In and out of Afib rhythm- Started on Cardizem Drip 12/23 Converted back to Sinus rhythm - DC Cardizem Drip Start Cardizem 60mg PO TID CHADSVASC 6 Continue Eliquis 5mg BID as per cardiology Continue Tele Cardiology Following, Appreciate Reccs Pulmonary Congestion: PNA vs CHF BNP 3000; 12/19 CXR worsening Bibasilar Consolidation consistent w/ CHF Cont Lasix 20 IVP Q12 ECHO Prelim EF 65% - Moderate Pulmonary Hypertension Duonebs PRN wheezing Sepsis: Most likely 2/2 PNA 12/18 CXR - RLL Infiltrate on prior CXR; Procal elevated Afebrile - Leukocytosis improved C/w Azactam + Levaquin x 5-7 total days as per ID BCX 12/17 - 2/2 Negative after 5 days Legionella antigen negative ID Following, appreciate reccs Nightly Agitation/ Confusion: CT Head pending Seroquel 12.5 QHS PRN as per psych Psych following apprecieate reccs Hx DM: AM fasting Sugars significantly improved; Polyuria HbA1C 11.3 Levemir 24HS ISS Regular ACHS Start 4u insulin AC breastfeeding educator has spoken w/ patient Holding home meds: Januiva, Metformin, Glipizide Hx HTN Hydralazine 10mg IVP Q6 PRN Contiue Lopressor 100 BID Hold Nifedipine XL 30 Daily Hold Diovan due to previous KENN Hx CVA Cont Aggrenox Hx Depression Home Lexapro QPM H/o Chronic Back Pain Cont Tramadol prn GI / DVT PPX GI not indicated at this time DVT Heparin 5000 Q18 Dispo: [facility] vs TCU once medically optimized Patient was seen, examined, and discussed w/ attending Dr. Darcy Hickman DO PGY1 - Internal Medicine Human Resources Specialist - Hospitalist Progress Note <Darcy Hickman R - Last Filed: 12/24/18 06:57> Objective - Vital Signs/Intake and Output Vital Signs (last 24 hours): Temp Pulse Resp BP Pulse Ox 98.5 F 72 20 159/79 H 95 12/24/18 05:34 12/24/18 05:34 12/24/18 05:34 12/24/18 06:15 12/24/18 05:34 Intake and Output: 12/23/18 12/24/18 18:59 06:59 Intake Total 20 2700 Output Total 1600 Balance 20 1100 - Medications Medications: Current Medications Acetaminophen (Tylenol 325mg Tab) 650 mg PO Q4H PRN PRN Reason: Fever >100.4 F Last Admin: 12/20/18 00:32 Dose: 650 mg Apixaban (Eliquis) 5 mg PO BID [facility]; Protocol Last Admin: 12/23/18 17:42 Dose: 5 mg Diltiazem HCl (Cardizem) 60 mg PO TID [facility] Last Admin: 12/23/18 17:41 Dose: 60 mg Dipyridamole/Aspirin (Aggrenox 25-200 Mg) 1 ea PO DAILY [facility] Last Admin: 12/23/18 10:01 Dose: 1 ea Docusate Sodium (Colace) 100 mg PO DAILY [facility] Last Admin: 12/23/18 10:02 Dose: 100 mg Escitalopram Oxalate (Lexapro) 10 mg PO QPM [facility] Last Admin: 12/23/18 17:42 Dose: 10 mg Furosemide (Lasix) 20 mg IVP DAILY [facility] Hydralazine HCl (Apresoline) 10 mg IVP Q6 PRN PRN Reason: SBP above 160 Insulin Detemir (Levemir) 24 unit SC HS [facility] Last Admin: 12/23/18 22:33 Dose: 24 unit Insulin Human Lispro (Humalog) 4 units SC AC [facility] Last Admin: 12/23/18 17:40 Dose: 4 unit Insulin Human Regular (Humulin R High) 0 units SC ACHS [facility]; Protocol Last Admin: 12/23/18 22:22 Dose: Not Given Ipratropium [place] (Atrovent) 0.5 mg IH [id number] PRN PRN Reason: Shortness of Breath Last Admin: 12/20/18 21:35 Dose: 0.5 mg Levalbuterol HCl (Xopenex) 0.63 mg IH [id number] PRN PRN Reason: Shortness of Breath Last Admin: 12/21/18 00:41 Dose: 0.63 mg Levofloxacin (Levaquin) 500 mg PO DAILY [facility]; Protocol Stop: 12/28/18 10:01 Last Admin: 12/23/18 10:02 Dose: 500 mg Metoprolol Tartrate (Lopressor) 100 mg PO BID [facility] Last Admin: 12/23/18 17:42 Dose: 100 mg Nifedipine (Procardia Xl) 30 mg PO DAILY [facility] Last Admin: 12/20/18 10:40 Dose: 30 mg Nystatin (Nystop Topical Powder) 0 gm TOP BID [facility] Last Admin: 12/23/18 18:11 Dose: 1 applic Polyethylene Glycol (Miralax) 17 gm PO DAILY [facility] Last Admin: 12/23/18 10:03 Dose: 17 gm Quetiapine Fumarate (Seroquel) 12.5 mg PO HS PRN; Protocol PRN Reason: Agitation Tramadol HCl (Ultram) 50 mg PO TID PRN PRN Reason: Pain, moderate (4-7) Last Admin: 12/21/18 21:29 Dose: 50 mg - Labs Labs: 12/23/18 06:20 12/23/18 06:20 Attending/Attestation - Attestation I have personally seen and examined this patient.: Yes I have fully participated in the care of the patient.: Yes I have reviewed all pertinent clinical information, including history, physical exam and plan: Yes Notes (Text): Patient seen and examined by me with resident at approximately 9:50AM on 12/23/18. Case including HPI, physical exam, and assessment and plan discussed with resident. Agree with above with following additions/corrections. Patient is a 72 year old female with past medical history significant for DM2, HTN, CVA, depression and chronic back pain that presented to the emergency room with fever, chills, and vomiting. Patient states she is doing ok. Complains of some left foot pain this morning. No trauma to the area. Patient states cough has improved but still feels like she has phlegm. Patient denies any chest pain or palpitations. No nausea or vomiting. No headaches or dizziness. No fevers or chills. No dysuria. Physical exam: General: Awake and alert lying in bed in no acute distress. HEENT: Normocephalic, atraumatic. Extraocular muscles intact, pupils equal and reactive, no scleral icterus. Oropharynx is pink and moist. No pharyngeal erythema or exudate appreciated. Neck is supple. Cardiovascular: Regular rhythm. Normal S1 and S2. No murmurs, rubs, or gallops appreciated Pulmonary: Normal respiratory effort. Improved breath sounds. No rhonchi, rales, or wheezing appreciated. Gastrointestinal: Soft, nondistended. Nontender. Positive bowel sounds all 4 quadrants. No guarding. Musculoskeletal: Moves all extremities. No calf tenderness. No edema. NO left foot edema, erythema, or warmth. Central nervous system: AAOx3. Dermatologic: Skin warm and dry. Assessment and plan: Patient is a 72 year old female with past medical history significant for DM2, HTN, CVA, depression and chronic back pain that presented to the emergency room with fever, chills, and vomiting. 1. New onset atrial fibrillation with RVR. Cardizem drip stopped. Placed on PO Cardizem. Continue Eliquis. Continue metoprolol. Cardiology recommendations appreciated. Continue to monitor on telemetry. 2. Sepsis. ID following, recommendations appreciated. Right lower lobe pneumonia. Lactic acidosis resolved. Hypotension resolved. Fevers resolved. Leukocytosis resolved. Pro-calcitonin improved to 2.69. Continue Aztreonam and Levaquin per ID. Repeat chest xray 12/20/18 per radiologist showed increasing bibasilar infiltrates consistent with CHF. Urine culture with no growth. Blood culture with no growth. CT abd/pelvis per radiologist showed no acute abdominal or pelvic abnormality, left colonic diverticulosis without CT evidence for acute diverticulitis. 2. Elevated BNP. Shortness of breath. Continue Lasix 20mg IV q12hrs. 2D echo per grain distributor showed the left ventricle is normal size, normal left ventricular wall thickness, left ventricular function is normal with EF 55-60%, mitral regurg is trace to mild, moderate tricuspid regurgitation, mild to moderate pulmonary hypertension, IVC is normal in size, no pericardial effusion. Continue O2 via nasal cannula as needed. Continue nebulizer treatments. 3. Acute kidney injury. Creatinine normalized. BUN uptrending likeky secondary to Lasix. Continue to monitor. 4. DM2 with hyperglycemia. Continue insulin sliding scale. Continue Levemir. Added insulin AC. Hgb A1C 11.3. Continue to monitor accuchecks. 5. Essential hypertension. Continue Metoprolol and Cardizem 6. CVA. Continue Aggrenox. 7. Chronic back pain. Continue Tramadol as needed. 8. Depression. Continue Lexapro 9. Constipation. Resolved. Continue Colace and miralax. 10. Agitation. Happens overnight. Head CT per radiologist showed no intracranial mass, hemorrhage, or evidence of acute infarct; mild age-appropriate atrophy and mild to moderate chronic white matter ischemic change. Psychiatrist recommendations appreciated. Seroquel prn at bedtime. 11. DVT prophylaxis. Steffiquis Case discussed in detail with the patient regarding current diagnosis and treatment plan. All questions answered.
--- NOTE | 2018-12-23 19:56 | CON ---
DATE: 12/23/2018 HISTORY OF PRESENT ILLNESS: The patient is a 73-year-old female who has a history of depression; otherwise, no major psychiatric history including hospitalizations or suicide attempts, who is compliant with prescribed Lexapro who has been medically treated for multiple medical issues (please see medical notes for more details) and also likely suffering from delirium, who has been confused, restless, and labile on the medical floor. Psychiatry was consulted to aid with these symptoms. I reviewed recent notes and met with the patient at bedside. As noted above, the patient has been confused, restless, disoriented, and verbally abusive to staff members. I discussed her behaviors and she does not recall specifics of her behaviors, however, does recall being confused at night regarding where she is and who she is seeing and she does report that she feels paranoid and scared because of this. Right now, she appears comfortable. She is oriented to current location; however, she does not know current month and year and states reasonably, she is 73-year-old and " have any need for that right now." The patient denies having any depression right now; mild anxiety because of her medical admission; however, under control. She is not acutely hallucinating. She is pleasant with me, ranges moderate and she jokes appropriately during our interview. Her insight and judgment are considered to be fair at this time. PAST PSYCHIATRIC HISTORY: The patient denies any psychiatric admission or suicide attempts. She is currently being treated for depression with Lexapro 10 mg daily. The patient does not recall prescribed that to her. SOCIAL HISTORY: The patient is for last two years. Her 's friend two years ago. She is still grieving. She has two daughters who lives with her who are 36 and 37 years old. She also lives with two dogs and two birds. She . She reports she has no issues with drug or alcohol. PSYCHIATRIC MEDICATIONS: Include Lexapro 10 mg daily at this time. IMPRESSION: The patient has multiple medical issues that could be contributing to delirium at this time, rule out contribution of dementia as well. The patient has a history of depression; however, she denies having any depressive symptoms right now and likely also suffering from adjustment disorder with associated anxiety. RECOMMENDATIONS: We will continue Lexapro; there is no acute indication to change that. The patient should be given Seroquel 12.5 mg at bedtime p.r.n. if she should become agitated or have issues with sleeping at night. Otherwise, there are no other major psychiatric concerns by this provider. We will sign off, please re-consult p.r.n. Shauna Crouch MD
[2018-12-23] MEDS: Insulin Detemir 100 units/ml Vial (Levemir) SC SCH (22:33)
[2018-12-24 08:09] LABS: BASO # 0.08 K/mm3 (0.0-2.0); BASO % 0.8 % (0.0-3.0); EOS # 0.4 (0.0-0.7); EOS % 4.2 % (1.5-5.0); HEMOGLOBIN 10.3 g/dL (12.0-16.0); LYMPH # 1.6 (1.2-3.4); LYMPH % 16.2 % (22.0-35.0); MEAN CELL VOLUME 85.9 fl (80.0-105.0); MEAN CORPUSCULAR HGB CONC 31.4 g/dl (31.0-37.0); MEAN PLATELET VOLUME 8.7 fl (7.0-11.0); MONO % 9.9 % (1.0-6.0); RBC 3.82 10^6/uL (3.5-6.1); RED CELL DISTRIBUTION WIDTH 14.4 % (11.5-14.5); WHITE BLOOD COUNT 10.1 10^3/uL (4.5-11.0)
[2018-12-24 08:20] LABS: ALB/GLOB RATIO 0.8 (1.1-1.8); ALBUMIN 2.6 g/dL (3.0-4.8); CALCIUM 8.8 mg/dL (8.4-10.5)
[2018-12-24] MEDS: Insulin Reg-HIGH-Coverage SC SCH ×4 (09:25→21:17)
[2018-12-24] MEDS: Insulin Lispro 1 UNITS/0.01 ML SC SCH ×3 (09:26→17:24)
[2018-12-24] MEDS: Aspirin-Dipyridamole 200-25 mg ER Cap PO SCH (09:27)
[2018-12-24] MEDS: levoFLOXacin 500 MG TAB PO SCH (09:27)
[2018-12-24] MEDS: POLYETHYLENE GLYCOL 3350 17 GM/Dose PACKET PO SCH (09:28)
[2018-12-24] MEDS: Nystatin 100,000 Units/gm Topical Pow(15 gm) TOP SCH ×2 (09:29→17:26)
[2018-12-24] MEDS ORDERED: Potassium Chloride 20 mEq ER Tab PO ONE (09:48)
--- NOTE | 2018-12-24 12:13 | CP.PCM.PN ---
<Wilver Hickman - Last Filed: 12/24/18 11:57> Subjective - Date & Time of Evaluation Date of Evaluation: 12/24/18 Time of Evaluation: 11:57 - Subjective Subjective: Wilver Hickman DO PGY1 - Internal Medicine Manager [employer] - Hospitalist Progress Note Patient seen and examined this morning at bedside; No acute events reported overnight. As per family and nursing confusion is significantly improved. Denies fevers, chills, CP, sob, abd pain. Complaining of L foot pain and cough. Objective - Vital Signs/Intake and Output Vital Signs (last 24 hours): Temp Pulse Resp BP Pulse Ox 98.5 F 71 20 169/71 H 95 12/24/18 05:34 12/24/18 09:27 12/24/18 05:34 12/24/18 09:27 12/24/18 05:34 Intake and Output: 12/24/18 12/24/18 06:59 18:59 Intake Total 2700 Output Total 1600 Balance 1100 - Medications Medications: Current Medications Acetaminophen (Tylenol 325mg Tab) 650 mg PO Q4H PRN PRN Reason: Fever >100.4 F Last Admin: 12/20/18 00:32 Dose: 650 mg Diltiazem HCl (Cardizem) 60 mg PO TID [facility] Last Admin: 12/24/18 09:26 Dose: 60 mg Dipyridamole/Aspirin (Aggrenox 25-200 Mg) 1 ea PO DAILY [facility] Last Admin: 12/24/18 09:27 Dose: 1 ea Docusate Sodium (Colace) 100 mg PO DAILY [facility] Last Admin: 12/24/18 09:28 Dose: Not Given Escitalopram Oxalate (Lexapro) 10 mg PO QPM [facility] Last Admin: 12/23/18 17:42 Dose: 10 mg Furosemide (Lasix) 20 mg IVP DAILY [facility] Last Admin: 12/24/18 09:27 Dose: 20 mg Hydralazine HCl (Apresoline) 10 mg IVP Q6 PRN PRN Reason: SBP above 160 Insulin Detemir (Levemir) 24 unit SC HS [facility] Last Admin: 12/23/18 22:33 Dose: 24 unit Insulin Human Lispro (Humalog) 4 units SC AC [facility] Last Admin: 12/24/18 09:26 Dose: 4 unit Insulin Human Regular (Humulin R High) 0 units SC ACHS [facility]; Protocol Last Admin: 12/24/18 09:25 Dose: 2 units Ipratropium [place] (Atrovent) 0.5 mg IH [id number] PRN PRN Reason: Shortness of Breath Last Admin: 12/20/18 21:35 Dose: 0.5 mg Levalbuterol HCl (Xopenex) 0.63 mg IH [id number] PRN PRN Reason: Shortness of Breath Last Admin: 12/21/18 00:41 Dose: 0.63 mg Levofloxacin (Levaquin) 500 mg PO DAILY [facility]; Protocol Stop: 12/28/18 10:01 Last Admin: 12/24/18 09:27 Dose: 500 mg Metoprolol Tartrate (Lopressor) 100 mg PO BID [facility] Last Admin: 12/24/18 09:27 Dose: 100 mg Nifedipine (Procardia Xl) 30 mg PO DAILY [facility] Last Admin: 12/20/18 10:40 Dose: 30 mg Nystatin (Nystop Topical Powder) 0 gm TOP BID [facility] Last Admin: 12/24/18 09:29 Dose: 1 applic Polyethylene Glycol (Miralax) 17 gm PO DAILY [facility] Last Admin: 12/24/18 09:28 Dose: Not Given Quetiapine Fumarate (Seroquel) 12.5 mg PO HS PRN; Protocol PRN Reason: Agitation Tramadol HCl (Ultram) 50 mg PO TID PRN PRN Reason: Pain, moderate (4-7) Last Admin: 12/21/18 21:29 Dose: 50 mg - Labs Labs: 12/24/18 07:00 12/24/18 09:00 - Constitutional Appears: Well, Non-toxic, No Acute Distress - Head Exam Head Exam: ATRAUMATIC, NORMOCEPHALIC - Eye Exam Eye Exam: EOMI, PERRL - ENT Exam ENT Exam: Mucous Membranes Moist - Respiratory Exam Respiratory Exam: No wheezes; LLL crackles - Cardiovascular Exam Cardiovascular Exam: REGULAR RHYTHM, RRR, +S1, +S2. absent: Murmur - GI/Abdominal Exam GI & Abdominal Exam: Soft, Nontender - Extremities Exam Extremities Exam: Normal Capillary Refill, Normal Inspection. absent: Pedal Edema Additional comments: Distal Pulses 2+ LE BL - Neurological Exam Neurological Exam: Alert, Awake, CN II-XII Intact, - Psychiatric Exam Psychiatric exam: Normal Affect, Normal Mood - Skin Skin Exam: Dry, Intact, Normal Color, Warm Assessment and Plan - Assessment and Plan (Free Text) Assessment: 73F w/ PMH HTN, DM, CVA (21yr ago), Depression, Chronic back pain, [place] [facility] [place] w/ complaints of fever, chill, vomiting. Noted to be septic on presentation w/ elevated lactate, hypotension, tachycardia. Noted to be septic most likely 2/2 PNA, Currently on IV ABX. Patient developed new onset Afib w/ RVR during hospitalization. PLAN: New Onset Atrial Fibrillation w/ RVR Has remained NSR overnight 12/21 EKG - Afib w/ RVR confirmed 12/22 In and out of Afib rhythm - Started on Cardizem Drip; 12/23 Converted back to Sinus rhythm - DC Cardizem Drip Continue Cardizem 60mg PO TID CHADSVASC 6 Continue Eliquis 5mg BID as per cardiology Continue Tele Cardiology Following, Appreciate Reccs Pulmonary Congestion: PNA vs CHF BNP 3000; 12/19 CXR worsening Bibasilar Consolidation consistent w/ CHF Lasix 20 IVP Daily ECHO Prelim EF 65% - Moderate Pulmonary Hypertension Duonebs PRN wheezing Sepsis: Most likely 2/2 PNA 12/18 CXR - RLL Infiltrate on prior CXR; Procal elevated Afebrile - Leukocytosis improved Levaquin PO Day #5 BCX 12/17 - 2/2 Negative after 5 days Legionella antigen negative ID Following, appreciate reccs Nightly Agitation/ Confusion: Improved CT Head negative Seroquel 12.5 QHS PRN as per psych Psych following apprecieate reccs Hypokalemia this AM Repleted w/ PO K+ Lasix dosing lowered Monitor K+ Hx DM: AM fasting Sugars significantly improved; Polyuria HbA1C 11.3 Insulin 4U AC Levemir 24HS ISS Regular ACHS community health educator has spoken w/ patient Holding home meds: Januiva, Metformin, Glipizide Hx HTN Hydralazine 10mg IVP Q6 PRN Contiue Lopressor 100 BID Hold Nifedipine XL 30 Daily Hold Diovan due to previous KENN Hx CVA Cont Aggrenox Hx Depression Home Lexapro QPM Hx Chronic Back Pain Cont Tramadol prn GI / DVT PPX: GI not indicated at this time DVT Heparin 5000 Q18 Dispo: T[facility] vs TCU once medically optimized; Pending further SW reccs Patient was seen, examined, and discussed w/ attending Dr. Darcy Hickman DO PGY1 - Internal Medicine Manager [employer] - Hospitalist Progress Note <Darcy Hickman R - Last Filed: 12/24/18 17:58> Objective - Vital Signs/Intake and Output Vital Signs (last 24 hours): Temp Pulse Resp BP Pulse Ox 98.1 F 62 18 132/78 95 12/24/18 12:00 12/24/18 17:25 12/24/18 12:00 12/24/18 17:25 12/24/18 05:34 Intake and Output: 12/24/18 12/24/18 06:59 18:59 Intake Total 2700 Output Total 1600 Balance 1100 - Medications Medications: Current Medications Acetaminophen (Tylenol 325mg Tab) 650 mg PO Q4H PRN PRN Reason: Fever >100.4 F Last Admin: 12/20/18 00:32 Dose: 650 mg Diltiazem HCl (Cardizem) 60 mg PO TID [facility] Last Admin: 12/24/18 17:25 Dose: 60 mg Dipyridamole/Aspirin (Aggrenox 25-200 Mg) 1 ea PO DAILY [facility] Last Admin: 12/24/18 09:27 Dose: 1 ea Docusate Sodium (Colace) 100 mg PO DAILY [facility] Last Admin: 12/24/18 09:28 Dose: Not Given Escitalopram Oxalate (Lexapro) 10 mg PO QPM [facility] Last Admin: 12/24/18 17:25 Dose: 10 mg Furosemide (Lasix) 20 mg IVP DAILY [facility] Last Admin: 12/24/18 09:27 Dose: 20 mg Hydralazine HCl (Apresoline) 10 mg IVP Q6 PRN PRN Reason: SBP above 160 Insulin Detemir (Levemir) 24 unit SC HS [facility] Last Admin: 12/23/18 22:33 Dose: 24 unit Insulin Human Lispro (Humalog) 6 units SC AC KIESHA Insulin Human Regular (Humulin R High) 0 units SC ACHS [facility]; Protocol Last Admin: 12/24/18 17:24 Dose: 4 units Ipratropium [place] (Atrovent) 0.5 mg IH [id number] PRN PRN Reason: Shortness of Breath Last Admin: 12/20/18 21:35 Dose: 0.5 mg Levalbuterol HCl (Xopenex) 0.63 mg IH [id number] PRN PRN Reason: Shortness of Breath Last Admin: 12/21/18 00:41 Dose: 0.63 mg Levofloxacin (Levaquin) 500 mg PO DAILY [facility]; Protocol Stop: 12/28/18 10:01 Last Admin: 12/24/18 09:27 Dose: 500 mg Metoprolol Tartrate (Lopressor) 100 mg PO BID [facility] Last Admin: 12/24/18 17:25 Dose: 100 mg Nifedipine (Procardia Xl) 30 mg PO DAILY [facility] Last Admin: 12/20/18 10:40 Dose: 30 mg Nystatin (Nystop Topical Powder) 0 gm TOP BID [facility] Last Admin: 12/24/18 17:26 Dose: 1 applic Polyethylene Glycol (Miralax) 17 gm PO DAILY [facility] Last Admin: 12/24/18 09:28 Dose: Not Given Quetiapine Fumarate (Seroquel) 12.5 mg PO HS PRN; Protocol PRN Reason: Agitation Tramadol HCl (Ultram) 50 mg PO TID PRN PRN Reason: Pain, moderate (4-7) Last Admin: 12/21/18 21:29 Dose: 50 mg - Labs Labs: 12/24/18 07:00 12/24/18 09:00 Attending/Attestation - Attestation I have personally seen and examined this patient.: Yes I have fully participated in the care of the patient.: Yes I have reviewed all pertinent clinical information, including history, physical exam and plan: Yes Notes (Text): Patient seen and examined by me with resident at approximately 8:55AM on 12/24/18. Case including HPI, physical exam, and assessment and plan discussed with resident. Agree with above with following additions/corrections. Patient is a 72 year old female with past medical history significant for DM2, HTN, CVA, depression and chronic back pain that presented to the emergency room with fever, chills, and vomiting. Patient states feels better today. States she is mostly coughing at night. States her left foot feels better today. Patient is denying any shortness of breath today. Patient denies any chest pain or palpitations. No nausea or vomiting. No headaches or dizziness. No fevers or chills. No dysuria. Physical exam: General: Awake and alert lying in bed in no acute distress. HEENT: Normocephalic, atraumatic. Extraocular muscles intact, pupils equal and reactive, no scleral icterus. Oropharynx is pink and moist. No pharyngeal erythema or exudate appreciated. Neck is supple. Cardiovascular: Regular rhythm. Normal S1 and S2. No murmurs, rubs, or gallops appreciated Pulmonary: Normal respiratory effort. Improved breath sounds. No rhonchi, rales, or wheezing appreciated. Gastrointestinal: Soft, nondistended. Nontender. Positive bowel sounds all 4 quadrants. No guarding. Musculoskeletal: Moves all extremities. No calf tenderness. No edema. No left foot edema, erythema, or warmth. Central nervous system: AAOx3. Dermatologic: Skin warm and dry. Assessment and plan: Patient is a 72 year old female with past medical history significant for DM2, HTN, CVA, depression and chronic back pain that presented to the emergency room with fever, chills, and vomiting. 1. New onset atrial fibrillation with RVR. Now in normal sinus rhythm. Cardizem drip stopped. Continue PO Cardizem. Continue Eliquis. Continue metoprolol. Cardiology recommendations appreciated. Continue to monitor on telemetry. 2. Left foot pain. Improved. Left foot xray per radiologist showed negative study. 3. Sepsis. ID following, recommendations appreciated. Right lower lobe pneumonia. Lactic acidosis resolved. Hypotension resolved. Fevers resolved. Leukocytosis resolved. Pro-calcitonin improved to 2.69. Continue oral Levaquin. Repeat chest xray 12/20/18 per radiologist showed increasing bibasilar infiltrates consistent with CHF. Urine culture with no growth. Blood culture with no growth. CT abd/pelvis per radiologist showed no acute abdominal or pelvic abnormality, left colonic diverticulosis without CT evidence for acute diverticulitis. 2. Elevated BNP. Shortness of breath. Improved. Lasix decreased to 20mg IV daily. 2D echo per ballast cleaning operator showed the left ventricle is normal size, normal left ventricular wall thickness, left ventricular function is normal with EF 55- 60%, mitral regurg is trace to mild, moderate tricuspid regurgitation, mild to moderate pulmonary hypertension, IVC is normal in size, no pericardial effusion. Continue O2 via nasal cannula as needed. Continue nebulizer treatments. 3. Acute kidney injury. Creatinine normalized. BUN uptrending likeky secondary to Lasix. Continue to monitor. 4. DM2 with hyperglycemia. Continue insulin sliding scale. Continue Levemir. Increase insulin AC. Hgb A1C 11.3. Continue to monitor accuchecks. 5. Essential hypertension. Continue Metoprolol and Cardizem 6. CVA. Continue Aggrenox. 7. Chronic back pain. Continue Tramadol as needed. 8. Depression. Continue Lexapro 9. Constipation. Resolved. Continue Colace and Miralax. 10. Agitation. Happens overnight. Head CT per radiologist showed no intracranial mass, hemorrhage, or evidence of acute infarct; mild age-appropriate atrophy and mild to moderate chronic white matter ischemic change. Psychiatrist recommendations appreciated. Seroquel prn at bedtime. 11. DVT prophylaxis. Steffiqumaddy 12. Disposition: Patient with gait instablity. TALYA pending. Case discussed in detail with the patient regarding current diagnosis and treatment plan. All questions answered.
--- NOTE | 2018-12-24 12:51 | RAD ---
Date of service: 12/24/2018 PROCEDURE: Left Foot Radiographs. HISTORY: L foot pain x2 days COMPARISON: None. TECHNIQUE: 3 views obtained. FINDINGS: BONES: Normal. No fracture. JOINTS: Normal. SOFT TISSUES: Normal. OTHER FINDINGS: None. IMPRESSION: Negative study
[2018-12-24] MEDS: Insulin Detemir 100 units/ml Vial (Levemir) SC SCH (22:12)
--- NOTE | 2018-12-25 00:56 | PN ---
DATE: 12/24/2018 SUBJECTIVE: The patient is in bed, in no acute distress, was seen earlier today. She is doing well. PHYSICAL EXAMINATION: VITAL SIGNS: Temperature is 98, blood pressure is 132/70, respiratory rate of 18, heart rate of 69. HEENT: Unremarkable. NECK: Supple. LUNGS: Decreased breath sounds. HEART: Normal S1 and S2. ABDOMEN: Soft. LABORATORY DATA: Reveals a white count of 10,000, hemoglobin of 10. BUN of 25, creatinine of 1.1. Procalcitonin is noted. Urinalysis is noted. Urine Legionella is negative. Blood cultures are negative. Urine cultures are negative. MEDICATIONS: Review of orders, the patient is on p.o. Levaquin. DIAGNOSTIC DATA: The patient's chest x-ray was negative. ASSESSMENT AND PLAN: A 73-year-old female who was seen earlier today in [facility], bed 1, who was admitted with severe sepsis and acute renal failure secondary to left lower lobe community-acquired pneumonia in a patient with diabetes, hypertension, prior cerebrovascular accident, depression, chronic back pain status post right leg fracture and a history of cholecystectomy, . Day #5 of Levaquin, improving. We will complete 7 to 10 days of Levaquin. We will check on the repeat procalcitonin and we will follow with you. Brijesh Shay MD
[2018-12-25 06:36] LABS: BASO # 0.06 K/mm3 (0.0-2.0); BASO % 0.6 % (0.0-3.0); EOS # 0.3 (0.0-0.7); EOS % 3.1 % (1.5-5.0); HEMOGLOBIN 9.8 g/dL (12.0-16.0); LYMPH # 1.6 (1.2-3.4); LYMPH % 16.2 % (22.0-35.0); MEAN CELL VOLUME 85.4 fl (80.0-105.0); MEAN CORPUSCULAR HGB CONC 31.6 g/dl (31.0-37.0); MEAN PLATELET VOLUME 8.9 fl (7.0-11.0); MONO # 0.9 (0.1-0.6); RBC 3.63 10^6/uL (3.5-6.1); RED CELL DISTRIBUTION WIDTH 14.1 % (11.5-14.5)
[2018-12-25 07:13] LABS: ALB/GLOB RATIO 0.9 (1.1-1.8); ALBUMIN 2.6 g/dL (3.0-4.8); CALCIUM 8.6 mg/dL (8.4-10.5)
[2018-12-25] MEDS ORDERED: Potassium Chloride 20 mEq ER Tab PO ONE (08:09)
[2018-12-25] MEDS: Insulin Reg-HIGH-Coverage SC SCH ×4 (08:30→21:29)
[2018-12-25] MEDS: Insulin Lispro 1 UNITS/0.01 ML SC SCH ×3 (08:30→18:18)
[2018-12-25] MEDS: levoFLOXacin 500 MG TAB PO SCH (09:11)
[2018-12-25] MEDS: POLYETHYLENE GLYCOL 3350 17 GM/Dose PACKET PO SCH (09:13)
[2018-12-25] MEDS: Aspirin-Dipyridamole 200-25 mg ER Cap PO SCH (09:14)
[2018-12-25] MEDS: Nystatin 100,000 Units/gm Topical Pow(15 gm) TOP SCH ×3 (09:14→18:17)
[2018-12-25] MEDS ORDERED: POLYETHYLENE GLYCOL 3350 17 GM/Dose PACKET PO PRN (10:05)
--- NOTE | 2018-12-25 11:48 | PN ---
DATE: 12/25/2018 SUBJECTIVE: The patient is in bed, in no acute distress, nontoxic. PHYSICAL EXAMINATION: VITAL SIGNS: Temperature is 97, blood pressure is 129/80, respiratory rate of . HEENT: Unremarkable. NECK: Supple. LUNGS: Decreased breath sounds. HEART: Normal S1 and S2. ABDOMEN: Soft. LABORATORY DATA: Reveals a white count of 10,000. BUN of 23, creatinine of 1.1. Urinalysis is noted. Serology is noted. Urine Legionella is negative. Microbiology reveals nares is negative. MRSA and urine culture is negative. Blood cultures are negative. MEDICATIONS: Review of orders reveals the patient to be on p.o. Levaquin. ASSESSMENT AND PLAN: This is a 73-year-old female who was seen earlier today, initially admitted with severe sepsis secondary to left lower lobe community-acquired pneumonia and the patient with acute renal failure, diabetes, hypertension, prior cerebrovascular accident, depression, chronic back pain, status post right leg fracture and history of cholecystectomy today is day #6 of Levaquin with complete 7 to 10 days. The patient is doing well. The patient is on p.o. antibiotic. Today is day #6 of 7 to 10 days. Brijesh Shay MD
--- NOTE | 2018-12-25 16:15 | CP.PCM.PN ---
<Wilver Hickman - Last Filed: 12/25/18 15:57> Subjective - Date & Time of Evaluation Date of Evaluation: 12/25/18 Time of Evaluation: 10:00 - Subjective Subjective: Wilver Hickman DO PGY1 Internal Medicine Sustainable Communities Designer - Hospitalist Progress Note Patient was seen and examined at bedside this morning. No acute events reported overnight; No cp, palp, sob, abd pain, nvdc Objective - Vital Signs/Intake and Output Vital Signs (last 24 hours): Temp Pulse Resp BP Pulse Ox 97.8 F 90 20 120/76 95 12/25/18 12:00 12/25/18 14:19 12/25/18 12:00 12/25/18 14:19 12/25/18 05:25 Intake and Output: 12/25/18 12/25/18 06:59 18:59 Intake Total 240 Output Total 500 Balance -260 - Medications Medications: Current Medications Acetaminophen (Tylenol 325mg Tab) 650 mg PO Q4H PRN PRN Reason: Fever >100.4 F Last Admin: 12/20/18 00:32 Dose: 650 mg Diltiazem HCl (Cardizem) 60 mg PO TID [facility] Last Admin: 12/25/18 14:19 Dose: 60 mg Dipyridamole/Aspirin (Aggrenox 25-200 Mg) 1 ea PO DAILY [facility] Last Admin: 12/25/18 09:14 Dose: 1 ea Enoxaparin Sodium (Lovenox) 40 mg SC DAILY [facility]; Protocol Escitalopram Oxalate (Lexapro) 10 mg PO QPM [facility] Last Admin: 12/24/18 17:25 Dose: 10 mg Furosemide (Lasix) 20 mg PO DAILY [facility] Hydralazine HCl (Apresoline) 10 mg IVP Q6 PRN PRN Reason: SBP above 160 Last Admin: 12/25/18 05:32 Dose: 10 mg Insulin Detemir (Levemir) 24 unit SC HS [facility] Last Admin: 12/24/18 22:12 Dose: 24 unit Insulin Human Lispro (Humalog) 6 units SC AC [facility] Last Admin: 12/25/18 14:14 Dose: 6 u Insulin Human Regular (Humulin R High) 0 units SC ACHS [facility]; Protocol Last Admin: 12/25/18 13:00 Dose: 12 units Ipratropium Sharon (Atrovent) 0.5 mg IH [id number] PRN PRN Reason: Shortness of Breath Last Admin: 12/20/18 21:35 Dose: 0.5 mg Levalbuterol HCl (Xopenex) 0.63 mg IH [id number] PRN PRN Reason: Shortness of Breath Last Admin: 12/21/18 00:41 Dose: 0.63 mg Levofloxacin (Levaquin) 500 mg PO DAILY [facility]; Protocol Stop: 12/28/18 10:01 Last Admin: 12/25/18 09:11 Dose: 500 mg Metoprolol Tartrate (Lopressor) 100 mg PO BID [facility] Last Admin: 12/25/18 09:13 Dose: 100 mg Nifedipine (Procardia Xl) 30 mg PO DAILY [facility] Last Admin: 12/20/18 10:40 Dose: 30 mg Nystatin (Nystop Topical Powder) 0 gm TOP BID [facility] Last Admin: 12/25/18 09:14 Dose: 1 applic Polyethylene Glycol (Miralax) 17 gm PO DAILY PRN PRN Reason: Constipation Quetiapine Fumarate (Seroquel) 12.5 mg PO HS PRN; Protocol PRN Reason: Agitation Tramadol HCl (Ultram) 50 mg PO TID PRN PRN Reason: Pain, moderate (4-7) Last Admin: 12/21/18 21:29 Dose: 50 mg - Labs Labs: 12/25/18 06:00 12/25/18 06:00 - Constitutional Appears: Well, Non-toxic, No Acute Distress - Head Exam Head Exam: ATRAUMATIC, NORMOCEPHALIC - Eye Exam Eye Exam: EOMI, PERRL - ENT Exam ENT Exam: Mucous Membranes Moist - Respiratory Exam Respiratory Exam: No wheezes; LLL crackles - Cardiovascular Exam Cardiovascular Exam: REGULAR RHYTHM, RRR, +S1, +S2. absent: Murmur - GI/Abdominal Exam GI & Abdominal Exam: Soft, Nontender - Extremities Exam Extremities Exam: Normal Capillary Refill, Normal Inspection. absent: Pedal Edema Additional comments: Distal Pulses 2+ LE BL - Neurological Exam Neurological Exam: Alert, Awake, CN II-XII Intact, - Psychiatric Exam Psychiatric exam: Normal Affect, Normal Mood - Skin Skin Exam: Dry, Intact, Normal Color, Warm Assessment and Plan - Assessment and Plan (Free Text) Assessment: 73F w/ PMH HTN, DM, CVA (21yr ago), Depression, Chronic back pain, presented to [facility] [place] w/ complaints of fever, chill, vomiting. Noted to be septic on presentation w/ elevated lactate, hypotension, tachycardia. Noted to be septic most likely 2/2 PNA, Currently on IV ABX. Patient developed new onset paroxysmal Afib w/ RVR during hospitalization. Currently pending placement by social science manager. PLAN: New Onset Paroxysmal Atrial Fibrillation w/ RVR Has remained NSR overnight 12/21 EKG - Afib w/ RVR confirmed 12/22 In and out of Afib rhythm - Started on Cardizem Drip; 12/23 Converted back to Sinus rhythm - DC Cardizem Drip Continue Cardizem 60mg PO TID Stop Eliquis Continue Tele Cardiology Following, Appreciate Reccs Pulmonary Congestion: PNA vs CHF BNP 3000; 12/19 CXR worsening Bibasilar Consolidation consistent w/ CHF Lasix 20 IVP Daily ECHO Prelim EF 65% - Moderate Pulmonary Hypertension Duonebs PRN wheezing Sepsis: Most likely 2/2 PNA 12/18 CXR - RLL Infiltrate on prior CXR; Procal elevated Afebrile - Leukocytosis improved Levaquin PO Day #6 BCX 12/17 - 2/2 Negative after 5 days Legionella antigen negative ID Following, appreciate reccs Nightly Agitation/ Confusion: Improved CT Head negative Seroquel 12.5 QHS PRN as per psych Psych following apprecieate reccs Hypokalemia Repleted w/ PO K+ Monitor K+ Hx DM: Continues to have elevated sugars HbA1C 11.3 Increased to Insulin 6U AC Levemir 24HS ISS Regular ACHS visual educator has spoken w/ patient Holding home meds: Januiva, Metformin, Glipizide Hx HTN Pressures consistently elevated in mornings; Cozaar QPM Hydralazine 10mg IVP Q6 PRN Contiue Lopressor 100 BID Hold Nifedipine XL 30 Daily Hold Diovan due to previous KENN Hx CVA Cont Aggrenox Hx Depression Home Lexapro QPM Hx Chronic Back Pain Cont Tramadol prn GI / DVT PPX: GI not indicated at this time DVT Lovenox 40 Daily Dispo: [facility] vs TCU once medically optimized; Pending further SW reccs Patient was seen, examined, and discussed w/ attending Dr. Darcy Hickman DO PGY1 - Internal Medicine [employer] Communities Designer - Hospitalist Progress Note <HickmanDarcy Krause - Last Filed: 12/25/18 17:07> Objective - Vital Signs/Intake and Output Vital Signs (last 24 hours): Temp Pulse Resp BP Pulse Ox 97.8 F 90 20 120/76 95 12/25/18 12:00 12/25/18 14:19 12/25/18 12:00 12/25/18 14:19 12/25/18 05:25 Intake and Output: 12/25/18 12/25/18 06:59 18:59 Intake Total 240 Output Total 500 Balance -260 - Medications Medications: Current Medications Acetaminophen (Tylenol 325mg Tab) 650 mg PO Q4H PRN PRN Reason: Fever >100.4 F Last Admin: 12/20/18 00:32 Dose: 650 mg Diltiazem HCl (Cardizem) 60 mg PO TID [facility] Last Admin: 12/25/18 14:19 Dose: 60 mg Dipyridamole/Aspirin (Aggrenox 25-200 Mg) 1 ea PO DAILY [facility] Last Admin: 12/25/18 09:14 Dose: 1 ea Enoxaparin Sodium (Lovenox) 40 mg SC DAILY [facility]; Protocol Escitalopram Oxalate (Lexapro) 10 mg PO QPM [facility] Last Admin: 12/24/18 17:25 Dose: 10 mg Furosemide (Lasix) 20 mg PO DAILY [facility] Hydralazine HCl (Apresoline) 10 mg IVP Q6 PRN PRN Reason: SBP above 160 Last Admin: 12/25/18 05:32 Dose: 10 mg Insulin Detemir (Levemir) 24 unit SC HS [facility] Last Admin: 12/24/18 22:12 Dose: 24 unit Insulin Human Lispro (Humalog) 6 units SC AC [facility] Last Admin: 12/25/18 14:14 Dose: 6 u Insulin Human Regular (Humulin R High) 0 units SC ACHS [facility]; Protocol Last Admin: 12/25/18 13:00 Dose: 12 units Ipratropium Sharon (Atrovent) 0.5 mg IH [id number] PRN PRN Reason: Shortness of Breath Last Admin: 12/20/18 21:35 Dose: 0.5 mg Levalbuterol HCl (Xopenex) 0.63 mg IH [id number] PRN PRN Reason: Shortness of Breath Last Admin: 12/21/18 00:41 Dose: 0.63 mg Levofloxacin (Levaquin) 500 mg PO DAILY [facility]; Protocol Stop: 12/28/18 10:01 Last Admin: 12/25/18 09:11 Dose: 500 mg Losartan Potassium (Cozaar) 25 mg PO [facility] Metoprolol Tartrate (Lopressor) 100 mg PO BID [facility] Last Admin: 12/25/18 09:13 Dose: 100 mg Nifedipine (Procardia Xl) 30 mg PO DAILY [facility] Last Admin: 12/20/18 10:40 Dose: 30 mg Nystatin (Nystop Topical Powder) 0 gm TOP BID [facility] Last Admin: 12/25/18 09:14 Dose: 1 applic Polyethylene Glycol (Miralax) 17 gm PO DAILY PRN PRN Reason: Constipation Quetiapine Fumarate (Seroquel) 12.5 mg PO HS PRN; Protocol PRN Reason: Agitation Tramadol HCl (Ultram) 50 mg PO TID PRN PRN Reason: Pain, moderate (4-7) Last Admin: 12/21/18 21:29 Dose: 50 mg - Labs Labs: 12/25/18 06:00 12/25/18 06:00 Attending/Attestation - Attestation I have personally seen and examined this patient.: Yes I have fully participated in the care of the patient.: Yes I have reviewed all pertinent clinical information, including history, physical exam and plan: Yes Notes (Text): Patient seen and examined by me with resident at approximately 8:50AM on . Case including HPI, physical exam, and assessment and plan discussed with resident. Agree with above with following additions/corrections. Patient is a 72 year old female with past medical history significant for DM2, HTN, CVA, depression and chronic back pain that presented to the emergency room with fever, chills, and vomiting. Patient states she is doing ok. States she needs to have a bowel movement. Patient states she feels like she is having "heavy breathing" but does not feel short of breath. Still with a cough at night. No pain in her left foot. No chest pain or palpitations. No nausea or vomiting. No headaches or dizziness. No fevers or chills. No dysuria. Physical exam: General: Awake and alert lying in bed in no acute distress. HEENT: Normocephalic, atraumatic. Extraocular muscles intact, pupils equal and reactive, no scleral icterus. Oropharynx is pink and moist. No pharyngeal erythema or exudate appreciated. Neck is supple. Cardiovascular: Regular rhythm. Normal S1 and S2. No murmurs, rubs, or gallops appreciated Pulmonary: Normal respiratory effort. Improved breath sounds. No rhonchi, rales, or wheezing appreciated. Gastrointestinal: Soft, nondistended. Nontender. Positive bowel sounds all 4 quadrants. No guarding. Musculoskeletal: Moves all extremities. No calf tenderness. No edema. No left foot edema, erythema, or warmth. Central nervous system: AAOx3. Dermatologic: Skin warm and dry. Assessment and plan: Patient is a 72 year old female with past medical history significant for DM2, HTN, CVA, depression and chronic back pain that presented to the emergency room with fever, chills, and vomiting. 1. New onset atrial fibrillation with RVR. Converted back to normal sinus rhythm. Cardizem drip stopped. Continue PO Cardizem. Continue metoprolol. E liquis was stopped. Cardiology recommendations appreciated. Continue to monitor on telemetry. 2. Left foot pain. Resolved. Left foot xray per radiologist showed negative study. 3. Sepsis. ID following, recommendations appreciated. Right lower lobe pneumonia. Lactic acidosis resolved. Hypotension resolved. Fevers resolved. Leukocytosis resolved. Pro-calcitonin improved to 2.69. Continue oral Levaquin per ID. Repeat chest xray 12/20/18 per radiologist showed increasing bibasilar infiltrates consistent with CHF. Urine culture with no growth. Blood culture with no growth. CT abd/pelvis per radiologist showed no acute abdominal or pelvic abnormality, left colonic diverticulosis without CT evidence for acute diverticulitis. 2. Elevated BNP. Shortness of breath. Continues to improve. Lasix chaged to 20mg PO daily. 2D echo per structural steel fitter showed the left ventricle is normal size, normal left ventricular wall thickness, left ventricular function is normal with EF 55-60%, mitral regurg is trace to mild, moderate tricuspid regurgitation, mild to moderate pulmonary hypertension, IVC is normal in size, no pericardial effusion. Continue O2 via nasal cannula as needed. Continue nebulizer treatments. 3. Acute kidney injury. Creatinine normalized. BUN improving. Likely secondary to Lasix. Continue to monitor. 4. DM2 with hyperglycemia. Continue insulin sliding scale. Continue Levemir. Continue Lispro 6 units AC. Hgb A1C 11.3. Continue to monitor accuchecks. 5. Essential hypertension. Continue Metoprolol and Cardizem 6. CVA. Continue Aggrenox. 7. Chronic back pain. Continue Tramadol as needed. 8. Depression. Continue Lexapro 9. Constipation. Resolved. Continue Colace and miralax as needed. 10. Agitation. Happens overnight. Psychiatrist recommendations appreciated. Continue Seroquel prn at bedtime. Head CT per radiologist showed no intracranial mass, hemorrhage, or evidence of acute infarct; mild age-appropriate atrophy and mild to moderate chronic white matter ischemic change. 11. DVT prophylaxis. Lovenox 12. Disposition: Patient with gait instability. [facility] pending. Case discussed in detail with the patient regarding current diagnosis and treatment plan. All questions answered.
[2018-12-25] MEDS: Insulin Detemir 100 units/ml Vial (Levemir) SC SCH (21:29)
--- NOTE | 2018-12-26 06:00 | CP.PCM.PN ---
Subjective - Date & Time of Evaluation Date of Evaluation: 12/26/18 Time of Evaluation: 06:10 - Subjective Subjective: Awake, alert, no distress Reason for consultation and follow up: Cardiac evaluation of rapid atrial fibrillation, history of hypertension, diabetes, CVA 21 years ago, Seen and examined by me and Dr. Grace Objective - Vital Signs/Intake and Output Vital Signs (last 24 hours): Temp Pulse Resp BP Pulse Ox 97.8 F 64 20 180/77 H 97 12/26/18 00:01 12/26/18 05:17 12/26/18 00:01 12/26/18 05:17 12/26/18 00:01 Intake and Output: 12/25/18 12/26/18 18:59 06:59 Intake Total 1860 Output Total 1800 Balance 60 - Medications Medications: Current Medications Acetaminophen (Tylenol 325mg Tab) 650 mg PO Q4H PRN PRN Reason: Fever >100.4 F Last Admin: 12/20/18 00:32 Dose: 650 mg Diltiazem HCl (Cardizem) 60 mg PO TID [facility] Last Admin: 12/25/18 18:12 Dose: 60 mg Dipyridamole/Aspirin (Aggrenox 25-200 Mg) 1 ea PO DAILY [facility] Last Admin: 12/25/18 09:14 Dose: 1 ea Enoxaparin Sodium (Lovenox) 40 mg SC DAILY [facility]; Protocol Escitalopram Oxalate (Lexapro) 10 mg PO QPM [facility] Last Admin: 12/25/18 18:12 Dose: 10 mg Furosemide (Lasix) 20 mg PO DAILY [facility] Hydralazine HCl (Apresoline) 10 mg IVP Q6 PRN PRN Reason: SBP above 160 Last Admin: 12/26/18 05:17 Dose: 10 mg Insulin Detemir (Levemir) 24 unit SC HS [facility] Last Admin: 12/25/18 21:29 Dose: 24 unit Insulin Human Lispro (Humalog) 6 units SC AC [facility] Last Admin: 12/25/18 18:18 Dose: 6 u Insulin Human Regular (Humulin R High) 0 units SC ACHS [facility]; Protocol Last Admin: 12/25/18 21:29 Dose: 2 units Ipratropium [place] (Atrovent) 0.5 mg IH [id number] PRN PRN Reason: Shortness of Breath Last Admin: 12/20/18 21:35 Dose: 0.5 mg Levalbuterol HCl (Xopenex) 0.63 mg IH [id number] PRN PRN Reason: Shortness of Breath Last Admin: 12/21/18 00:41 Dose: 0.63 mg Levofloxacin (Levaquin) 500 mg PO DAILY [facility]; Protocol Stop: 12/28/18 10:01 Last Admin: 12/25/18 09:11 Dose: 500 mg Losartan Potassium (Cozaar) 25 mg PO HS [facility] Last Admin: 12/25/18 21:30 Dose: 25 mg Metoprolol Tartrate (Lopressor) 100 mg PO BID [facility] Last Admin: 12/25/18 18:14 Dose: 100 mg Nifedipine (Procardia Xl) 30 mg PO DAILY [facility] Last Admin: 12/20/18 10:40 Dose: 30 mg Nystatin (Nystop Topical Powder) 0 gm TOP BID [facility] Last Admin: 12/25/18 18:17 Dose: 1 applic Polyethylene Glycol (Miralax) 17 gm PO DAILY PRN PRN Reason: Constipation Quetiapine Fumarate (Seroquel) 12.5 mg PO HS PRN; Protocol PRN Reason: Agitation Tramadol HCl (Ultram) 50 mg PO TID PRN PRN Reason: Pain, moderate (4-7) Last Admin: 12/21/18 21:29 Dose: 50 mg - Labs Labs: 12/25/18 06:00 12/25/18 06:00 - Constitutional Appears: Non-toxic, No Acute Distress - Head Exam Head Exam: NORMAL INSPECTION, NORMOCEPHALIC - Eye Exam Eye Exam: Normal appearance Pupil Exam: NORMAL ACCOMODATION - ENT Exam ENT Exam: Mucous Membranes Moist, Normal Exam - Respiratory Exam Respiratory Exam: Decreased Breath Sounds, Clear to Ausculation Bilateral, NORMAL BREATHING PATTERN - Cardiovascular Exam Cardiovascular Exam: REGULAR RHYTHM, +S1, +S2 - GI/Abdominal Exam GI & Abdominal Exam: Soft, Normal Bowel Sounds - Extremities Exam Extremities Exam: Full ROM, Normal Capillary Refill - Neurological Exam Neurological Exam: Alert, Awake - Psychiatric Exam Psychiatric exam: Normal Affect, Normal Mood - Skin Skin Exam: Dry, Normal Color, Warm Assessment and Plan - Assessment and Plan (Free Text) Assessment: A 73 year old female who came in to the ER for fever and chills. While in the hospital had rapid atrial fibrillation thus consult was called. history of hypertension, diabetes, CVA 21 years ago, depression, chronic back pain, fractu re of the ankle surgery and allergic to metallic rods., x 2, dilatation and curettage. Chest X ray showed infiltrates. on IV antibiotics. Echo done and showed LVEF 55-60%, Trace to mild MR,moderate Tr,RVSP 53mmHg, moderate pulmonary hypertension.Out patient stress test. Cardizem drip for atrial fibrillation. Converted to normal sinus rhythm. Switched to oral Cardizem. Elevated blood pressure this morning. PRN Hydralazine. Cozaar increased dose. On Oral anbitiotics per ID. clinically improved. Discharge planning. Plan: No distress, denies chest pain Maintained on normal sinus rhythm Heart rate stable Blood pressure uncontrolled PRN Hydralazine Clinically improved On Cardizem 60 mg TID,Aggrenox 1 tab daily,Lasix 20 mg daily, Lopressor 100 mg BID, Cozaar 25 mg HS, Hydralazine PRN Continue current treatment Continue current medications Continue oral antibiotics per ID Out patient stress test Discharge planning Will follow up Plan and treatment discussed with Dr. Grace
[2018-12-26 06:09] VITALS: O2SAT 94
[2018-12-26 07:35] LABS: BASO # 0.07 K/mm3 (0.0-2.0); BASO % 0.5 % (0.0-3.0); EOS # 0.3 (0.0-0.7); EOS % 2.4 % (1.5-5.0); HEMOGLOBIN 10.7 g/dL (12.0-16.0); LYMPH # 1.8 (1.2-3.4); LYMPH % 12.9 % (22.0-35.0); MEAN CELL VOLUME 86.4 fl (80.0-105.0); MEAN CORPUSCULAR HEMOGLOBIN 26.9 pg (25.0-35.0); MEAN CORPUSCULAR HGB CONC 31.1 g/dl (31.0-37.0); MONO # 1.1 (0.1-0.6); MONO % 8.1 % (1.0-6.0); RBC 3.98 10^6/uL (3.5-6.1); RED CELL DISTRIBUTION WIDTH 14.4 % (11.5-14.5); WHITE BLOOD COUNT 13.5 10^3/uL (4.5-11.0)
[2018-12-26] MEDS: Insulin Reg-HIGH-Coverage SC SCH ×2 (08:18→11:36)
[2018-12-26] MEDS: Insulin Lispro 1 UNITS/0.01 ML SC SCH ×2 (08:19→11:36)
[2018-12-26 08:55] LABS: CALCIUM 9.2 mg/dL (8.4-10.5)
[2018-12-26] MEDS: Aspirin-Dipyridamole 200-25 mg ER Cap PO SCH (09:12)
[2018-12-26] MEDS: levoFLOXacin 500 MG TAB PO SCH (09:13)
[2018-12-26] MEDS: Nystatin 100,000 Units/gm Topical Pow(15 gm) TOP SCH (09:14)
[2018-12-26] MEDS ORDERED: Enoxaparin 40 mg Syringe SC SCH (10:00)
--- NOTE | 2018-12-26 10:10 | PN ---
DATE: 12/26/2018 SUBJECTIVE: The patient is seen earlier today, in no acute distress, nontoxic, comfortable on exam. PHYSICAL EXAMINATION: VITAL SIGNS: Temperature 97, blood pressure 180/70, respiratory rate 16. HEENT: Examination of HEENT is unremarkable. NECK: Supple. LUNGS: Decreased breath sounds. HEART: Normal S1, S2. ABDOMEN: Soft. LABORATORY DATA: White count of 13,500, hemoglobin of 10. Chemistries reveal a BUN of 23, creatinine of 1.1. Urinalysis is noted and serology is reviewed. Review of orders reveals the patient to be on p.o. Levaquin. ASSESSMENT AND PLAN: This is a 73-year-old female who was initially admitted with severe sepsis secondary to a left lower lobe community-acquired pneumonia and acute renal failure in a patient with a history of diabetes, hypertension, prior cerebrovascular accident, depression, chronic back pain status post right leg fracture, history of cholecystectomy. Today is day #7 of Levaquin p.o., would complete 7-10 days. We will follow with you. The patient is at risk for developing nosocomial infections Brijesh Shay MD
[2018-12-26 12:49] VITALS: RESP 20; TEMP 97.9
[2018-12-26] MEDS ORDERED: Insulin Detemir 100 units/ml Vial (Levemir) SC SCH (13:41)
[2018-12-26 14:41] VITALS: BP 163/69; PULSE 63
[2018-12-27] MEDS ORDERED: diltiaZEM 180 mg/24 Hours CD Cap PO SCH (10:00)
--- NOTE | 2018-12-28 01:06 | CP.PCM.DIS ---
Provider - Provider Date of Admission: 12/17/18 10:36 Attending physician: Diana Ballesteros MD Primary care physician: Anamaria Eden MD Consults: 12/17/18 12:09 Infectious Disease Consult Routine Comment: Consulting Provider: Brijesh Shay Consulting Physician: Brijesh Shay Reason for Consult: fever, perinephric stranding Podiatry Consult Routine Comment: Consulting Provider: Mauricio Larsen Consulting Physician: Mauricio Larsen Reason for Consult: diabetic foot care 12/18/18 10:49 Diabetic Education Referral Routine Comment: Physician Instructions: Reason For Exam: uncontrolled DM 12/19/18 14:20 Evaluation for TRCU Routine Comment: Physician Instructions: Reason For Exam: weakness; deconditioning 12/19/18 23:02 Nursing Referral for Wound Care Routine Comment: Physician Instructions: Reason For Exam: protocol 12/20/18 15:58 TCU [Evaluation for TRCU] Routine Comment: Physician Instructions: Reason For Exam: strengthening 12/21/18 07:35 Cardiology Consult Routine Comment: Consulting Provider: Jakob Gomez Consulting Physician: Jakob Gomez Reason for Consult: New Onset Afib 12/21/18 10:21 Diabetic Education Referral Routine Comment: Physician Instructions: Reason For Exam: Patient wants to try insulin 12/22/18 09:47 Psychiatry Consult Routine Comment: Consulting Provider: Tracie Maravilla Consulting Physician: Tracie Maravilla Reason for Consult: nightly agitation Time Spent in preparation of Discharge (in minutes): 45 Diagnosis - Discharge Diagnosis (1) Paroxysmal atrial fibrillation with rapid ventricular response Status: Acute (2) Sepsis due to pneumonia Status: Acute (3) Diabetes Status: Acute (4) HTN (hypertension) Status: Acute (5) Sepsis Status: Acute Hospital Course - Lab Results Lab Results: Micro Results 12/21/18 01:00 Naris MRSA Culture (Admit) - Final MRSA NOT DETECTED 12/17/18 11:45 Blood Blood Culture - Final NO GROWTH AFTER 5 DAYS 12/17/18 11:20 Blood Blood Culture - Final NO GROWTH AFTER 5 DAYS 12/19/18 11:55 Urine Random Urine Culture - Final No Growth (<1,000 CFU/ML) 12/17/18 04:40 Urine,Catheterized Urine Culture - Final No Growth (<1,000 CFU/ML) Most Recent Lab Values WBC 13.5 10^3/uL (4.5-11.0) H D 12/26/18 06:30 RBC 3.98 10^6/uL (3.5-6.1) 12/26/18 06:30 Hgb 10.7 g/dL (12.0-16.0) L 12/26/18 06:30 Hct 34.4 % (36.0-48.0) L 12/26/18 06:30 MCV 86.4 fl (80.0-105.0) 12/26/18 06:30 MCH 26.9 pg (25.0-35.0) 12/26/18 06:30 MCHC 31.1 g/dl (31.0-37.0) 12/26/18 06:30 RDW 14.4 % (11.5-14.5) 12/26/18 06:30 Plt Count 274 10^3/uL (120.0-450.0) 12/26/18 06:30 MPV 9.0 fl (7.0-11.0) 12/26/18 06:30 Neut % (Auto) 76.1 % (50.0-68.0) H 12/26/18 06:30 Lymph % (Auto) 12.9 % (22.0-35.0) L 12/26/18 06:30 Dane % (Auto) 8.1 % (1.0-6.0) H 12/26/18 06:30 Eos % (Auto) 2.4 % (1.5-5.0) 12/26/18 06:30 Baso % (Auto) 0.5 % (0.0-3.0) 12/26/18 06:30 Lymph # (Auto) 1.8 (1.2-3.4) 12/26/18 06:30 Dane # (Auto) 1.1 (0.1-0.6) H 12/26/18 06:30 Eos # (Auto) 0.3 (0.0-0.7) 12/26/18 06:30 Baso # (Auto) 0.07 K/mm3 (0.0-2.0) 12/26/18 06:30 Absolute Neuts (auto) 10.28 (1.4-6.5) H 12/26/18 06:30 Neutrophils % (Manual) 83 % (50.0-70.0) H 12/17/18 04:40 Band Neutrophils % 9 % (0-2) H 12/17/18 04:40 Lymphocytes % (Manual) 5 % (22.0-35.0) L 12/17/18 04:40 Monocytes % (Manual) 0 % (1.0-6.0) L 12/17/18 04:40 Metamyelocytes % 3 % 12/17/18 04:40 Platelet Evaluation Normal (NORMAL) 12/17/18 04:40 pO2 79 mm/Hg (30-55) H 12/17/18 07:50 VBG pH 7.36 (7.32-7.43) 12/17/18 07:50 VBG pCO2 36.0 (40-60) L 12/17/18 07:50 VBG HCO3 20.3 mmol/l (21-28) L 12/17/18 07:50 VBG Total CO2 21.4 mmol.L (22-28) L 12/17/18 07:50 VBG O2 Sat (Calc) 97.1 % (40-65) H 12/17/18 07:50 VBG Base Excess -4.5 mmol/L (0.0-2.0) L 12/17/18 07:50 VBG Potassium 3.6 mmol/L (3.6-5.2) 12/17/18 07:50 Sodium 136.0 mmol/L (132-148) 12/17/18 07:50 Chloride 98.0 mmol/L (98-107) 12/17/18 07:50 Glucose 393 mg/dl (65-105) H 12/17/18 07:50 Lactate 4.9 mmol/L (0.7-2.1) H* 12/17/18 07:50 FiO2 21.0 % 12/17/18 07:50 Crit Value Called To Leora malone 12/17/18 07:50 Crit Value Called By Sonali 12/17/18 07:50 Blood Gas Notified Time 836 12/17/18 07:50 Sodium 137 mmol/L (132-148) 12/26/18 08:20 Potassium 4.4 mmol/L (3.6-5.0) 12/26/18 08:20 Chloride 101 mmol/L (98-107) 12/26/18 08:20 Carbon Dioxide 30 mmol/L (21-33) 12/26/18 08:20 Anion Gap 10 (10-20) 12/26/18 08:20 BUN 25 mg/dL (7-21) H 12/26/18 08:20 Creatinine 1.2 mg/dl (0.7-1.2) 12/26/18 08:20 Est GFR ( Amer) 53 12/26/18 08:20 Est GFR (Non-Af Amer) 44 12/26/18 08:20 POC Glucose (mg/dL) 257 mg/dL (65-110) H 12/26/18 11:08 Random Glucose 200 mg/dL (70-110) H 12/26/18 08:20 Hemoglobin A1c 11.3 % (4.2-6.5) H D 12/17/18 12:00 Lactic Acid 1.3 mmol/L (0.7-2.1) 12/17/18 14:00 Calcium 9.2 mg/dL (8.4-10.5) 12/26/18 08:20 Phosphorus 3.6 mg/dL (2.5-4.5) 12/25/18 06:00 Magnesium 1.7 mg/dL (1.7-2.2) 12/25/18 06:00 Total Bilirubin 0.2 mg/dL (0.2-1.3) 12/26/18 08:20 AST 29 U/L (14-36) 12/26/18 08:20 ALT 22 U/L (7-56) 12/26/18 08:20 Alkaline Phosphatase 61 U/L (38-126) 12/26/18 08:20 Troponin I 0.05 ng/mL 12/21/18 08:25 NT-Pro-B Natriuret Pep 3050 pg/mL (0-450) H 12/19/18 11:00 Total Protein 6.1 g/dL (5.8-8.3) 12/26/18 08:20 Albumin 3.0 g/dL (3.0-4.8) 12/26/18 08:20 Globulin 3.1 gm/dL 12/26/18 08:20 Albumin/Globulin Ratio 1.0 (1.1-1.8) L 12/26/18 08:20 Triglycerides 199 mg/dL (35-160) H 12/22/18 05:45 Cholesterol 94 mg/dL (130-200) L 12/22/18 05:45 LDL Cholesterol Direct 40 mg/dL (0-129) 12/22/18 05:45 HDL Cholesterol 25 mg/dL (29-60) L 12/22/18 05:45 Procalcitonin 0.81 NG/ML (0.19-0.49) H 12/24/18 07:30 TSH 3rd Generation 3.02 mIU/mL (0.46-4.68) 12/22/18 05:45 Venous Blood Potassium 3.6 mmol/L (3.6-5.2) 12/17/18 07:50 Urine Color Yellow (YELLOW) 12/21/18 01:00 Urine Appearance Sl cloudy (CLEAR) 12/21/18 01:00 Urine pH 6.0 (4.7-8.0) 12/21/18 01:00 Ur Specific [place] 1.025 (1.005-1.035) 12/21/18 01:00 Urine Protein 100 mg/dL (<30 mg/dL) H 12/21/18 01:00 Urine Glucose (UA) 250 mg/dL (NEGATIVE) H 12/21/18 01:00 Urine Ketones Trace mg/dL (NEGATIVE) H 12/21/18 01:00 Urine Blood Moderate (NEGATIVE) H 12/21/18 01:00 Urine Nitrate Negative (NEGATIVE) 12/21/18 01:00 Urine Bilirubin Negative (NEGATIVE) 12/21/18 01:00 Urine Urobilinogen 0.2 E.U./dL (<1 E.U./dL) 12/21/18 01:00 Ur Leukocyte Esterase Negative Jonatan/uL (NEGATIVE) 12/21/18 01:00 Urine RBC 0 - 2 /hpf (0-2) 12/21/18 01:00 Urine WBC 1 - 3 /hpf (0-6) 12/21/18 01:00 Ur Epithelial Cells 1 - 3 /hpf (0-5) 12/21/18 01:00 Amorphous Sediment Moderate /hpf (NONE) 12/17/18 04:40 Urine Bacteria Occ /hpf (NONE) 12/21/18 01:00 Urine Other Uyeast /hpf 12/21/18 01:00 Influenza Typ A,B (EIA) Negative for flu a/b (NEGATIVE) 12/19/18 10:55 Ur L.pneumophila Ag Negative (NEGATIVE) 12/21/18 01:00 - Hospital Course Hospital Course: Wilver Hickman DO PGY1 - Internal Medicine Corporate Scheduler Hospitalist Progress Note Patient is a 72 yo F with PMH of DM2, HTN, CVA (21 yrs ago), depression, and chronic back pain presents to [facility] for fever, chills, vomiting, and cough. Patient states that she began having fever of 101.4 F, chills, and back pain. In the ED patient reported to have mild hypotension, elevated lactate, and leukocytosis. Subsequently patient was admitted for sepsis. Source of sepsis initially thought to be 2/2 UTI given nonspeicific perinephric stranding; however given persistent cough and CXR w/ RLL opacity her sepsis was subsequently deemed to be due to pneumonia. ID was consulted for the patient; Blood and urine cultures were negative; patient was started on broad spectrum abx therapy; and eventually completed therapy on levaquin while admitted. During admission, hospital course was complicated w/ new onset paroxysmal afib w/ RVR. Dr. Grace, cardiology, consulted and patient was started on cardizem drip and eliquis. She was subsequently transitioned to PO cardizem and no AC was required for her upon discharge. Her home medication of nifedipien for HTN was DC due to initiation of cardizem; and her Diovan was resumed. ECHO was performed during admission, and EF noted to be 63% w/ mild-moderate pulmonary HTN. Patient was discharged to [facility] on 12/26 Morning prior to discharge, patient was seen and evaluated at bedside. No acute events reported overnight Patient reported no fevers, chills, chest pain, palpitations, abd pain, n/v/d/c, urinary discomfort ; Patient still reports complains of cough; mild SOB Discharge medications, and discharge plans were reviewed with patient Patient verbalized understanding of discharge plan as written below Patient was seen, evaluated, and discussed w/ attending physician Dr. Ballesteros prior to discharge - Date & Time of H&P Date of H&P: 12/17/18 Time of H&P: 12:16 Discharge Exam - Head Exam Head Exam: NORMAL INSPECTION, NORMOCEPHALIC - Eye Exam Eye Exam: EOMI, PERRL - Respiratory Exam Respiratory Exam: Rales - Cardiovascular Exam Cardiovascular Exam: RRR. absent: Systolic Murmur - GI/Abdominal Exam GI & Abdominal Exam: Normal Bowel Sounds. absent: Tenderness - Neurological Exam Neurological exam: Alert, Oriented x3 - Psychiatric Exam Psychiatric exam: Normal Affect, Normal Mood - Skin Skin Exam: Dry, Normal Color, Warm Discharge Plan - Follow Up Plan Condition: FAIR Disposition: REHAB FACILITY/REHAB UNIT Instructions: Heart Healthy Diet, Pneumonia, Adult (DC), Diabetes Diet , Low Salt Diet, Sepsis, Adult (DC) Additional Instructions: You were admitted for Sepsis due to Pneumonia (lung infection) during your admission you developed an irregular heart rhythm during this admission. Please follow up with Dr. Grace, Cardiology, within 3-5 days of being discharged. You will need a stress test. Please follow up with your primary Dr. Eden within 3-5 days of discharge from the subacute rehab. Please stop taking home medicine Nifedipine Please resume all other home medications. Please start taking Cardizem CD 180mg once a day (to start on December 27, 2018) GO TO THE NEAREST EMERGENCY DEPARTMENT IF SYMPTOMS WORSEN OR NEW CONCERNING SYMPTOMS ARISE. Referrals: Brijesh Shay MD [Staff Provider] - Anamaria Eden MD [Primary Care Provider] - Jakob Grace MD [Staff Provider] -
== END 2018-12-26 16:30 | DRG 871 ==
LOC: ED 04:04 → ERH 10:36 → 3RSO 12:24 → 2RSO 12-21 03:36
PROVIDERS: ADMIT Internal Medicine; ATTEND Internal Medicine
PROC: 3E0F7GC Introduction of Other Therapeutic Substance into Respiratory Tract, Via Natural or Artificial Opening (ICD-10-PCS; principal; 2018-12-19)
DX: A41.9 Sepsis, unspecified organism (principal); J18.1 Lobar pneumonia, unspecified organism; E87.2 Acidosis; N17.9 Acute kidney failure, unspecified; N10 Acute pyelonephritis; I69.351 Hemiplegia and hemiparesis following cerebral infarction affecting right dominant side; J44.1 Chronic obstructive pulmonary disease with (acute) exacerbation; J44.0 Chronic obstructive pulmonary disease with (acute) lower respiratory infection; R65.20 Severe sepsis without septic shock; E86.0 Dehydration; E11.65 Type 2 diabetes mellitus with hyperglycemia; I95.9 Hypotension, unspecified; I11.0 Hypertensive heart disease with heart failure; I50.9 Heart failure, unspecified; I48.0 Paroxysmal atrial fibrillation; I25.10 Atherosclerotic heart disease of native coronary artery without angina pectoris; G62.9 Polyneuropathy, unspecified; E87.6 Hypokalemia; T50.1X5A Adverse effect of loop [high-ceiling] diuretics, initial encounter; I27.20 Pulmonary hypertension, unspecified; G89.4 Chronic pain syndrome; M54.9 Dorsalgia, unspecified; F32.9 Major depressive disorder, single episode, unspecified; M06.9 Rheumatoid arthritis, unspecified; K59.00 Constipation, unspecified; K44.9 Diaphragmatic hernia without obstruction or gangrene; E78.5 Hyperlipidemia, unspecified; F41.9 Anxiety disorder, unspecified; Y95 Nosocomial condition; Z87.891 Personal history of nicotine dependence; Z88.0 Allergy status to penicillin